=== PATIENT | male | born 1970 | race Caucasian/White ===

== ENCOUNTER 2017-12-05 14:21 | Emergency (ER) | payer SELFPAY ==
[2017-12-05 14:27] VITALS: BP 133/70; PULSE 108; RESP 22; TEMP 37.9; O2SAT 96
--- NOTE | 2017-12-05 14:30 | DI.REPORT_ITS ---
SYMPTOMS/DIAGNOSIS: SWELLING, PAIN, RIGHT TESTICLE SCROTAL ULTRASOUND: There is a large right hydrocele measuring nearly 7 cm. There is increased blood flow in the right testicle as well as right epididymis. There is no evidence of an abscess or torsion. No testicular mass is seen. The left testicle and epididymis show normal blood flow. A 4 mm cyst is seen in the head of the left epididymis. IMPRESSION: Right epididymal orchitis and hydrocele.
--- NOTE | 2017-12-05 14:47 | ED.GENADUL ---
Disposition Clinical Impression: Orchitis and epididymitis Disposition: HOME Instructions: Epididymo-Orchitis (ED) Additional Instructions: Please follow-up with urology. Call for an appointment. Return to the emergency department immediately for any worsening or new concerning symptoms. Prescriptions: Levofloxacin [Levaquin] 500 mg PO DAILY #9 tablet Referrals: Amado Antonio MD [ [facility] STAFF PHYSICIAN] - Medical Decision Making - Lab Data Laboratory Tests 12/05/17 14:25 Urine Color Yellow Urine Clarity Clear Urine pH 7.5 Ur Specific [place] 1.020 Urine Protein Negative Urine Ketones Negative Urine Blood Negative Urine Nitrite Negative Urine Bilirubin Negative Urine Urobilinogen 0.2 Ur Leukocyte Esterase Trace H Urine RBC Negative Urine WBC 10-20 Ur Epithelial Cells Negative Urine Crystals Negative Urine Bacteria Few Urine Casts Negative Urine Mucus Negative Ur Culture Indicated? Yes Urine Glucose Negative Results reviewed for labs ordered during visit: Yes - Medical Decision Making 14:45 --46-year-old male with MS, chronic constipation and urinary retention requiring self-catheterization, here with right testicular pain and swelling over the past 1 week. Stat ultrasound of the right testicle ordered. Plan to straight cath and check urinalysis. Patient refuses to allow nurse to catheterize and demands to self catheterize.. 16:00 --ultrasound interpreted by radiology: Epididymitis and orchitis right testicle, increased blood flow to the testicle, hydrocele with no abscess. Patient has been sexually active with only 1 partner, his , no anal sex, no history of STDs. Plan to treat with Levaquin. Patient is on methadone. Considered QT prolongation. ECG reviewed and interpreted by me: QTC 420, sinus tachycardia. Discussed risk and benefits of fluoroquinolone and patient agrees to treatment. I will have him follow-up with urology. Patient understands importance of timely follow-up. I encouraged him to return should have any worsening or new concerning symptoms. History of Present Illness - General Chief complaint: Abd Prob Stated complaint: UNKNOWN Time Seen by Provider: 12/05/17 14:29 Source: patient, RN notes reviewed Mode of arrival: wheelchair Limitations: no limitations - History of Present Illness Initial comments: 46-year-old male with history of multiple sclerosis, chronic constipation, urinary retention requiring self-catheterization, presents with chief complaint of testicular swelling. Patient notes severe, persistent and worsening testicular swelling over the past 1 week. No modifiers. He has associated pain. Swelling and pain is localized to his right testicle. He has never had similar in the past. Patient denies dysuria but does have urinary retention. He does have associated abdominal discomfort in his right lower abdomen. - Related Data LamoTRIgine [LaMICtal] 100 mg PO DAILY 10/09/12 Polyethylene Glycol 3350 [Miralax] 17 gm PO HS 10/09/12 CloNIDine [Catapres] 0.1 mg PO DAILY 10/13/12 Gabapentin [Neurontin] 800 mg PO TID 10/13/12 Methadone HCl 30 mg PO TID ml 10/04/13 Amitriptyline HCl 50 mg PO HS #30 tab-cap 11/29/13 Magnesium Citrate [Citrate Of Magnesia] 300 ml PO NOW #1 btl 12/17/13 Baclofen 5 mg PO BID #60 tab-cap 09/19/14 Sulfamethoxazole/Trimethoprim [Bactrim Ds Tablet] 1 tab-cap PO BID tab-cap 03/10/15 Meloxicam 7.5 mg PO BID tab-cap 05/04/15 Pv Stool Softener 100 mg PO BID 05/04/15 Pantoprazole Sodium [Protonix] 1 tab PO DAILY 09/04/15 Levofloxacin [Levaquin] 500 mg PO DAILY #9 tablet 12/05/17 Allergies Allergy/AdvReac Type Severity Reaction Status Date / Time morphine AdvReac Mild vomits Unverified 03/14/16 17:59 Review of Systems Constitutional: denies: fever Gastrointestinal: nausea, constipation. denies: abdominal pain Genitourinary: as per HPI, testicular pain. denies: discharge Comment: All other systems reviewed and negative Past Medical History - Past Medical History Multiple sclerosis, GERD, chronic pain - Social History Living Situation: lives with family General Exam - General Limitations: no limitations General appearance: alert, in no apparent distress - Eye Eye exam: Absent: scleral icterus, conjunctival injection - Respiratory Respiratory exam: Present: normal lung sounds bilaterally. Absent: respiratory distress, wheezes, rales, rhonchi - Cardiovascular Cardiovascular Exam: Present: normal rhythm, tachycardia, normal heart sounds - GI/Abdominal GI/Abdominal exam: Present: soft, tenderness (minimal rt suprapubic), diminished bowel sounds. Absent: guarding, rebound, rigid - exam: Present: testicular tenderness (rt), scrotal swelling (rt testicle swollen), circumcision, other (exam performed with nurse public stenographer present) - Neurological Exam Neurological exam: Present: alert. Absent: altered - Psychiatric Psychiatric exam: Present: normal affect - Skin Skin exam: Present: warm, dry, intact Course Vital Signs - 24 hr 12/05/17 14:27 Temperature 37.9 C H Pulse 108 H Respiratory 22 Rate Blood Pressure 133/70 Pulse Oximetry 96
[2017-12-05 14:53] LABS: Bilirubin Negative (Negative); Blood Negative (Negative); Clarity Clear; Glucose Negative (Negative); Ketones Negative (Negative); Leukocyte Esterase Trace (Negative); Nitrite Negative (Negative); Urobilinogen 0.2 EU/dL (Up TO 0.2); pH 7.5 (5-8)
[2017-12-05 15:05] LABS: Bacteria Few HPF (Negative); C & S Indicated? Yes; Casts Negative LPF (Negative); Crystals Negative HPF (Negative); Epithelial Cells Negative HPF (Negative); Mucus Negative (Negative); RBC Negative (0-2)
[2017-12-05] MEDS: Sodium Chloride-Nasal SPRAY-ADULT 44 ML BTL NS (15:31)
--- NOTE | 2017-12-08 07:58 | PDOC.ERCMPRO ---
Care Management Progress Note 12/05-Dr. Jessee Santos requested assistance with an urology f/u within one week for orchitis (infection of the testicle). Referral faxed to Urology this am.
== END 2017-12-05 16:20 | disposition home or self-care (01) ==
PROVIDERS: Emergency Provider Student in an Organized Health Care Education/Training Program; PCP Family Medicine
DX: N45.3 Epididymo-orchitis (principal); B96.89 Other specified bacterial agents as the cause of diseases classified elsewhere; G20 Parkinson's disease
CPT/HCPCS: 51701; 87077; 93005; 99284; 76870; 81003; 81015; 87086; 87186; 93010

== ENCOUNTER 2019-05-14 15:33 | Outpatient (REF) | payer OTHER, SELFPAY ==
[2019-05-14 20:04] LABS: HCT 42.8 % (40.0-50.0); Mean Corpuscular Hemoglobin 30.5 pg (27.0-33.0); Mean Corpuscular Volume 87.2 fL (80-95); Mean Platelet Volume 11.1 fL (8.0-11.0); Platelet Count 373 x1000/uL (130-400); RBC 4.91 m/cumm (4.50-6.00); RBC Distribution Width 12.6 % (11.8-14.1); White Blood Cell Count 6.27 k/cumm (4.4-10.8)
[2019-05-14 20:10] LABS: Iron 122 ug/dL (65-175); Total Iron Binding Capacity 317 ug/dL (250-450); Transferrin Sat 38 % (20-55)
[2019-05-14 20:11] LABS: ALT 17 U/L (16-63); AST 11 U/L (15-37); Albumin 4.1 g/dL (3.4-5.0); Alkaline Phosphatase 114 U/L (46-116); Anion Gap 6.5 mmol/L (3-11); BUN 16 mg/dL (7-18); CO2 33.5 mmol/L (21.0-32.0); CREATININE 0.97 mg/dL (0.70-1.30); Calcium 9.5 mg/dL (8.5-10.1); Calculated LDL 80 mg/dL; Chloride 102 mmol/L (98-107); Cholesterol 141 mg/dL (<200); Glucose 114 mg/dL (74-106); HDL Cholesterol 41 mg/dL (40-60); Potassium 4.2 mmol/L (3.5-5.1); Sodium 142 mmol/L (136-145); Triglyceride 101 mg/dL (<150)
[2019-05-14 20:23] LABS: Bilirubin, Total 1.2 mg/dL (0.2-1.0)
[2019-05-17 09:57] LABS: Hepatitis B Surface Ag Negative (Negative)
[2019-05-17 11:32] LABS: Hepatitis C Ab w Rflx HCV PCR Negative (Negative)
== END 2019-05-14 15:53 ==
LOC: NCHCN 15:33
PROVIDERS: PCP Family Medicine; Visit Provider Family Medicine
DX: R42 Dizziness and giddiness (principal); D50.9 Iron deficiency anemia, unspecified; G35 Multiple sclerosis; N39.0 Urinary tract infection, site not specified; Z11.59 Encounter for screening for other viral diseases; Z13.220 Encounter for screening for lipoid disorders
CPT/HCPCS: 80053; 80061; 85027; 86803; 87340; 83540; 83550

== ENCOUNTER 2019-06-10 12:22 | Outpatient (CLI) | payer OTHER, SELFPAY ==
--- NOTE | 2019-06-10 09:45 | DI.RAD_ITS ---
EXAM: XR KNEE LT 4V AP,LAT,PREET,PAT CLINICAL HISTORY: f/u L knee pain TECHNIQUE: 2D digital imaging was performed. COMPARISON: LEFT KNEE 3 VIEW COMPLETE from 09/19/2010 FINDINGS: There is now severe narrowing of the lateral femoral tibial joint, with a [id number] appearance. There is prominent periarticular spurring and sclerosis. There is severe valgus angulation and later al subluxation of the tibia with respect to the distal femur. Spurring is also seen from the medial femoral condyle, medial tibial plateau and inferior aspect of the patella. The patellofemoral joint shows mild narrowing. Bones appear osteoporotic. A bone island is seen in the upper tibia. No join t effusion is visible. IMPRESSION: Severe degenerative changes of the lateral femoral tibial joint.
== END 2019-06-10 12:42 ==
PROVIDERS: PCP Family Medicine; Visit Provider Student in an Organized Health Care Education/Training Program
DX: M25.562 Pain in left knee (principal); M17.12 Unilateral primary osteoarthritis, left knee
CPT/HCPCS: 73564

== ENCOUNTER 2019-06-11 09:05 | Day surgery (SDC) | payer OTHER, SELFPAY ==
[2019-06-11 09:22] VITALS: BP 101/63; PULSE 66; RESP 16; TEMP 37; O2SAT 92
[2019-06-11] MEDS: Lactated Ringers 1,000 ML 80 ML IV (09:54)
--- NOTE | 2019-06-11 11:13 | PDOC.DSDIS_ITS ---
Discharge Plan Disposition Patient Disposition: HOME Condition: Good Discharge Details Reason For Visit: EGD, colonoscopy Attending Provider: Liza Haider Primary Care Provider: Naeem Clemente Home Meds and New Rx's Prescriptions: Continued methadone 10 MG/5 ML solution 30 mg PO TID RF: 0 sennosides 8.6 mg tablet 8.6 mg PO BID RF: 0 baclofen 10 mg tablet 10 mg PO BID Qty: 60 RF: 12 clonidine HCl [Catapres] 0.1 mg tablet 0.1 mg PO BID RF: 0 cyproheptadine 4 mg tablet 8 mg PO QHS RF: 0 polyethylene glycol 3350 17 GM powder in packet 17 gm PO HS RF: 0 lamotrigine [Lamictal] 100 MG tablet 100 mg PO DAILY RF: 0 magnesium citrate [Citrate of Magnesia] 300 ML solution 300 ml PO NOW Qty: 1 RF: 0 pantoprazole [Protonix] 40 MG tablet,delayed release (DR/EC) 1 tab PO DAILY RF: 0 Discontinued peg 3350-electrolytes [Golytely] 236-22.74-6.74 -5.86 gram recon soln 240 ml PO Q10M Qty: 4000 RF: 0 Discharge Instructions Additional Instructions: Findings: Your upper endoscopy showed a benign narrowing in the esophagus (s tricture). This was dilated. Dilation may need to be repeated. Contact me if you are still having trouble swallowing in 1 month. Your colonoscopy was normal. Follow up: Plan for routine screening colonoscopy in 10 years or sooner as symptoms indicate. Please call if you develop: fevers >101.5 Nausea or Vomiting Abdominal pain or chest pain that is not transient DAY SURGERY UNIT POST COLONOSCOPY INSTRUCTIONS 1. Because there will be medication in your system for the next 24 hours, you may feel a little sleepy. Your coordination will be affected. Therefore: a. Do not drive or operate dangerous equipment for 24 hours. b. Do not drink alcohol beverages for 24 hours (not even beer). c. Plan to go home and rest for the day. 2. Generally there are no restrictions on your activity after a day or so has gone by, but you may feel a bit fatigued for a few days. 3 After you arrive home you may have a light meal and return to a normal diet as you can tolerate it without feeling sick to your stomach. 4. After surgery, you may feel pain or discomfort. This should be only transient, but if it persists please contact your doctor. 5. If there are any questions regarding the findings of your procedure, please feel free to contact your doctor. 6. If you are unable to contact your doctor with a problem, contact the hospital at [phone]. 7. Continue all your regular medications unless directed otherwise. I understand the above instructions and have no questions. Signature of Patient or Responsible Adult Escort Date/Time Name of Responsible Adult Escort Signature of Nurse Date/Time Activity:: Activity as Tolerated Diet:: As Tolerated Discharge Orders Discharge Orders: Discharge Order (Routine); Ordered 06/11/19 Ordered By: Liza Haider DS: Diagnosis Discharge Diagnosis (1) Benign esophageal stricture: Status: Acute (2) Normal colonoscopy: Status: Acute
[2019-06-11 13:24] VITALS: BP 119/70; PULSE 60; RESP 16; TEMP 36.3; O2SAT 100
--- NOTE | 2019-06-14 06:10 | ENDO_ITS ---
REPORT OF OPERATIVE PROCEDURE DATE OF PROCEDURE June 11, 2019 PREOPERATIVE DIAGNOSES 1. Dysphagia. 2. Need for colon screening. POSTOPERATIVE DIAGNOSES 1. Benign distal esophageal stricture. 2. Normal colon. PROCEDURES 1. Esophagoscopy with balloon dilation. 2. Colonoscopy. SURGEON Liza Haider M.D. ANESTHESIA Monitored Anesthesia Care. INDICATION This is a 48-year-old man with MS, who presents for his first screening colonoscopy. He does have di fficulty having a bowel movement and he takes regular laxatives. His prep went well he reports. He al so notes difficulty swallowing liquids, solids and his pills. This has been going on for a long time. He does have heartburn that is treated with a PPI. PROCEDURE DESCRIPTION The patient was placed in the left lateral decubitus position. Propofol was titrated to sedation. The scope was advanced into the esophagus under direct visualization. Just proximal to the GE junction there was a benign-appearing stricture that I was unable to pass through with the endoscope. There wa s no obvious evidence of Lobato's esophagus. There was no esophagitis. The 10-11-12 balloon was inse rted across the stricture and gently inflated. Two ATMs represented 10 mm in size. I first inflated t he balloon to 1 MARCOS and left it there for a minute. When the balloon was deflated, the appropriate am ount of dilation had been done, so I did not inflate the balloon any larger. I was still unable to pa ss the endoscope. The scope was therefore withdrawn with no proximal esophageal lesions noted. Digital rectal examination revealed no abnormalities. The scope was advanced to the cecum without di fficulty. He was noted to have a somewhat tortuous and patulous colon. His prep was adequate. The sco pe was slowly withdrawn with no abnormalities seen within the ascending, transverse, descending sigmo id colon or rectum, including on retroflexed view. He tolerated the procedure well and was stable to Recovery. He will need a followup screening colonoscopy again in 10 years. Since the diameter of his esophagus is so small, it is likely he will need further dilation. The patient was advised to contact me if his dysphagia does not resolve with this procedure.
== END 2019-06-11 13:45 | disposition home or self-care (01) ==
PROVIDERS: PCP Family Medicine; Visit Provider Surgery
PROC: (CPT 43249; principal; 2019-06-11 10:30)
DX: Z12.11 Encounter for screening for malignant neoplasm of colon (principal); K59.00 Constipation, unspecified; K63.89 Other specified diseases of intestine; R13.10 Dysphagia, unspecified; G35 Multiple sclerosis; K21.9 Gastro-esophageal reflux disease without esophagitis; F10.10 Alcohol abuse, uncomplicated; K22.2 Esophageal obstruction
CPT/HCPCS: 43249; 45378; J2001; J2250; J3010

== ENCOUNTER 2019-06-25 08:35 | Day surgery (SDC) | payer OTHER, SELFPAY ==
[2019-06-25 08:39] VITALS: BP 118/79; PULSE 78; RESP 16; TEMP 36.4; O2SAT 98
[2019-06-25] MEDS: Lactated Ringers 1,000 ML 80 ML IV (09:09)
--- NOTE | 2019-06-25 09:54 | PDOC.DSDIS_ITS ---
Discharge Plan Disposition Patient Disposition: HOME Condition: Good Discharge Details Reason For Visit: DYPHAGIA Attending Provider: Liza Haider Primary Care Provider: Naeem Clemente Home Meds and New Rx's Prescriptions: Continued methadone 10 MG/5 ML solution 30 mg PO TID RF: 0 baclofen 10 mg tablet 10 mg PO BID Qty: 60 RF: 12 clonidine HCl [Catapres] 0.1 mg tablet 0.1 mg PO BID RF: 0 cyproheptadine 4 mg tablet 8 mg PO QHS RF: 0 lamotrigine [Lamictal] 100 MG tablet 100 mg PO DAILY RF: 0 magnesium citrate [Citrate of Magnesia] 300 ML solution 300 ml PO NOW Qty: 1 RF: 0 pantoprazole [Protonix] 40 MG tablet,delayed release (DR/EC) 1 tab PO DAILY RF: 0 Discharge Instructions Additional Instructions: Findings: The stricture was dilated today and biopsies performed. Follow up: Plan for dilation again in 2 weeks unless your symptoms have resolved. Please call if you develop: fevers >101.5 Nausea or Vomiting Chest or Abdominal pain that is not transient DAY SURGERY UNIT POST EGD INSTRUCTIONS 1. Because there will be medication in your system for the next 24 hours, you may feel a little sleepy. Your coordination will be affected. Therefore: a. Do not drive or operate dangerous equipment for 24 hours. b. Do not drink alcohol beverages for 24 hours (not even beer). c. Plan to go home and rest for the day. 2. Generally there are no restrictions on your activity after a day or so has gone by, but you may feel a bit fatigued for a few days. 3 After you arrive home you may have a light meal and return to a normal diet as you can tolerate it without feeling sick to your stomach. 4. After surgery, you may feel pain or discomfort. This should be only louis sient, but if it persists please contact your doctor. 5. If there are any questions regarding the findings of your procedure, please feel free to contact your doctor. 6. If you are unable to contact your doctor with a problem, contact the hospital at [phone]. 7. Continue all your regular medications unless directed otherwise. I understand the above instructions and have no questions. Signature of Patient or Responsible Adult Escort Date/Time Name of Responsible Adult Escort Signature of Nurse Date/Time Activity:: Activity as Tolerated Diet:: As Tolerated Discharge Orders Discharge Orders: Discharge Order (Routine); Ordered 06/25/19 Ordered By: Liza Haider DS: Diagnosis Discharge Diagnosis (1) Benign esophageal stricture: Status: Acute
--- NOTE | 2019-06-25 10:28 | ESO_PTH ---
PATIENT: Anil Park LOC: [facility] U#:[id number] AGE/SX: 48/M ROOM: RE06/25/[address]: Liza Haider MD : [id number] BED: DIS: 06/25/2019 SPEC #: [id number] RECD: 06/25/19 13:02 STATUS: MAX RERadha #: [id number] MARIANA: 06/25/19 10:[address]: Liza Haider DEPT: Surgical Specimen RECD BY: Nancy Gould ENTERED: 06/25/19 13:02 SP TYPE: Eso OTHR DR: Naeem Clemente Tissues: 1 - ESOPHAGUS BIOPSY Procedures: GROSS AND MICRO LEVEL 4 Comments: [id number]
--- NOTE | 2019-06-25 10:46 | ENDO_ITS ---
DATE: JUNE 25, 2019 Preoperative Diagnosis: Distal esophageal stricture Postoperative Diagnosis: Same Operation: Esophagoscopy with balloon dilation and distal esophageal biopsy. Anesthesia: General Surgeon: Liza Haider M.D. Indications: This is a 48 year-old man who underwent balloon dilation of a distal esophageal stricture two weeks ago. This had a benign appearance. The scope could not be passed through the stricture. I used the 10-11-12 mm. balloon but only inflated it to 1 MARCOS which is less than 10 mm. in size. He noted improvement of his symptoms but certainly still has regular dysphagia. He presents for repeat dilation. Procedure: He was placed in the left lateral decubitus position. Propofol was titrated to sedation. The scope was advanced into his esophagus under direct visualization. The distal stricture was again demonstrated. I was unable to pass the scope through it. There was not any significant acute inflammation. The 10-11-12 mm. balloon was inserted and again inflated to 1 MARCOS. When the balloon was deflated, there was evidence of some trauma to the stricture which was at the desired level. I did not inflate the balloon any larger because of this. The balloon was removed and the site inspected. I was still unable to pass the scope through here. I was however able to visualize the distal esophagus somewhat better and it appeared that there was potentially Lobato's present. The stricture is therefore potentially not located at the GE junction but a few cm. proximal. The area of possible Lobato's change was biopsied as was the stricture itself. The air was suctioned free and the scope withdrawn with no other esophageal lesions found. He tolerated the procedure well and was stable to recovery. It is likely that he will need a dilation again in a few weeks.
[2019-06-25 11:26] VITALS: BP 121/77; PULSE 67; RESP 18; TEMP 36.9; O2SAT 100
== END 2019-06-25 11:45 | disposition home or self-care (01) ==
PROVIDERS: PCP Family Medicine; Visit Provider Surgery
PROC: 0DJ68ZZ Inspection of Stomach, Via Natural or Artificial Opening Endoscopic (ICD-10-PCS; CPT 43235; principal; 2019-06-25 09:45)
DX: K22.2 Esophageal obstruction (principal); K21.0 Gastro-esophageal reflux disease with esophagitis; F10.10 Alcohol abuse, uncomplicated
CPT/HCPCS: 43249; 43239; 88305

== ENCOUNTER 2019-08-20 15:55 | Outpatient (REF) | payer OTHER, SELFPAY ==
[2019-08-20 17:12] LABS: Bilirubin Negative (Negative); Blood Negative (Negative); Clarity Clear (Clear); Glucose Negative (Negative); Ketones Negative (Negative); Leukocyte Esterase Trace (Negative); Nitrite Negative (Negative); Specific Gravity >= 1.030 (1.005-1.025); Urobilinogen 0.2 EU/dL (Up TO 0.2); pH 6.5 (5-8)
[2019-08-20 18:01] LABS: Bacteria Negative HPF (Negative); C & S Indicated? Yes; Casts Negative LPF (Negative); Crystals Negative HPF (Negative); Epithelial Cells Few HPF (Negative); Mucus Negative (Negative); Other Cells Negative (Negative); RBC Negative HPF (0-2); WBC 20-50 HPF (0-5)
== END 2019-08-20 16:15 ==
LOC: NCHCN 15:55
PROVIDERS: PCP Family Medicine; Visit Provider Psychiatry & Neurology Neurology
DX: N31.9 Neuromuscular dysfunction of bladder, unspecified (principal)
CPT/HCPCS: 81003; 81015; 87086

== ENCOUNTER 2019-09-03 08:50 | Outpatient (CLI) | payer OTHER, SELFPAY ==
--- NOTE | 2019-09-03 08:00 | DI.RAD_ITS ---
EXAM: XR STANDING ALIGNMENT CLINICAL HISTORY: preop planning;please do with mag marker btw knees TECHNIQUE: COMPARISON: CR LEFT ANKLE COMPLETE from 09/19/2010 CR XR KNEE LT 1V from 09/03/2019 FINDINGS: Standing alignment views of the lower extremities were obtained along with single lateral view of the left knee. There are severe degenerative changes of the left knee predominantly involving the later al tibiofemoral joint with severe valgus angulation of the left knee. Old deformity of distal left tibia is noted, no change from September 2010 films. IMPRESSION:
[2019-09-04 14:23] LABS: COVID-19 RT-PCR Result NEGATIVE (Negative)
== END 2019-09-03 09:10 ==
LOC: DIORS 08:51 → LBO 09-23 12:06
PROVIDERS: Student in an Organized Health Care Education/Training Program; PCP Family Medicine; Referring Provider Family Medicine; Visit Provider Physician Assistant
DX: M25.562 Pain in left knee (principal); M17.32 Unilateral post-traumatic osteoarthritis, left knee; Z11.59 Encounter for screening for other viral diseases; Z01.818 Encounter for other preprocedural examination; M21.062 Valgus deformity, not elsewhere classified, left knee
CPT/HCPCS: U0003; 73560; 77073

== ENCOUNTER 2019-09-03 10:00 | Outpatient (CLI) | payer OTHER, SELFPAY | END 2019-09-03 10:20 | PROVIDERS: PCP Family Medicine; Visit Provider Student in an Organized Health Care Education/Training Program | DX: R69 Illness, unspecified (principal) ==

== ENCOUNTER 2019-09-03 10:37 | Outpatient (CLI) | payer OTHER, SELFPAY ==
[2019-09-03 11:58] LABS: HCT 41.6 % (40.0-50.0); HGB 14.9 g/dL (13.5-17.5); Mean Corp. HGB Concentration 35.8 g/dL (32.0-36.0); Mean Corpuscular Hemoglobin 30.5 pg (27.0-33.0); Mean Corpuscular Volume 85.2 fL (80-95); Platelet Count 374 x1000/uL (130-400); RBC 4.88 m/cumm (4.50-6.00); RBC Distribution Width 12.3 % (11.8-14.1); White Blood Cell Count 7.78 k/cumm (4.4-10.8)
[2019-09-03 13:13] LABS: Anion Gap 6.3 mmol/L (3-11); BUN 14 mg/dL (7-18); CO2 33.7 mmol/L (21.0-32.0); CREATININE 0.97 mg/dL (0.70-1.30); Calcium 9.8 mg/dL (8.5-10.1); Chloride 102 mmol/L (98-107); Glucose 75 mg/dL (74-106); Potassium 4.4 mmol/L (3.5-5.1); Sodium 142 mmol/L (136-145)
== END 2019-09-03 10:57 ==
PROVIDERS: PCP Family Medicine; Visit Provider Student in an Organized Health Care Education/Training Program
DX: M25.562 Pain in left knee (principal); M17.32 Unilateral post-traumatic osteoarthritis, left knee; Z01.812 Encounter for preprocedural laboratory examination
CPT/HCPCS: 36415; 80048; 85027

== ENCOUNTER 2019-09-07 06:00 | Observation (INO) | payer OTHER, SELFPAY ==
[2019-09-07] VITALS (10 sets, daily range): BP systolic 120–150; BP diastolic 72–87; PULSE 73–88; RESP 16–21; TEMP 36.4–36.9; O2SAT 97–100
[2019-09-07] MEDS: Lactated Ringers 1,000 ML 80 ML IV (06:41)
[2019-09-07] MEDS: Acetaminophen 500 MG TAB 1000 MG PO ×2 (06:41→13:31)
[2019-09-07] MEDS: Gabapentin 300 MG CAP PO (06:42)
[2019-09-07] MEDS: Celecoxib 200 MG CAP 400 MG PO (06:42)
--- NOTE | 2019-09-07 07:12 | W.PM.DS.N ---
Date of service: 09/07/19 Time of Service: 13:08 DS: Diagnosis Discharge Diagnosis (1) Valgus deformity, not elsewhere classified, left knee: Status: Chronic (2) Left knee DJD: Status: Chronic Discharge Plan Disposition Patient Disposition: HOME Condition: Improving Discharge Details Reason For Visit: (L) KNEE POST TRAUMATIC OA Admit Date/Time: 09/07/19 06:00 Admit Provider: Jordan Sosa Attending Provider: Jordan Sosa [facility] Course: Patient was admitted to the medical/surgical floor following the procedure. It was tolerated well without any notable medical, surgical, or anesthetic complications. Mobilization began postoperatively. The tang catheter was removed and voiding spontaneously. Vitals were stable. Physical therapy worked with the patient and was cleared for discharge home. No acute medical issues. Home Meds and New Rx's Prescriptions: New aspirin 81 mg tablet,delayed release (DR/EC) 81 mg PO BID Qty: 60 RF: 0 acetaminophen 500 mg tablet 1,000 mg PO Q8H PRN (Reason: pain) Qty: 90 RF: 3 ibuprofen 600 mg tablet 600 mg PO TID PRNQty: 90 RF: 3 oxycodone 10 mg tablet 10 mg PO Q4H PRNQty: 18 RF: 0 Continued methadone 10 MG/5 ML solution 30 mg PO TID RF: 0 baclofen 10 mg tablet 10 mg PO BID Qty: 60 RF: 12 clonidine HCl [Catapres] 0.1 mg tablet 0.1 mg PO BID RF: 0 cyproheptadine 4 mg tablet 8 mg PO QHS RF: 0 lamotrigine [Lamictal] 100 MG tablet 100 mg PO DAILY RF: 0 magnesium citrate [Citrate of Magnesia] 300 ML solution 300 ml PO NOW Qty: 1 RF: 0 pantoprazole [Protonix] 40 MG tablet,delayed release (DR/EC) 1 tab PO DAILY RF: 0 Discharge Instructions Additional Instructions: Dr. Sosa?s Total Knee Discharge Instructions Activity: The most important activity is to walk. You should try to take short walks a few times a day. It is important that when resting you work on keeping the knee straight. Avoid putting a pillow behind the knee as this will encourage flexion. Work on range of motion exercises as provided by Physical Therapy and the preoperative booklet. - Start outpatient physical therapy within 2 weeks. - You should wear the STANLEY hose on both legs for 2 weeks. Dressing: Keep the surgical dressing (Mepilex) in place for at least one week. If you went home on the surgical day, you should remove the JOSAFAT wrap on the second day and then apply the STANLEY hose. The dressing may get wet after 3 days but avoid soaking the dressing. If it gets wet, just lightly pat dry. Most patient prefer to cover with ClingWrap or Saran Wrap to keep the dressing dry. After the first week, the dressing may be removed and replaced with light gauze and tape or nothing. Medications: - You should take Tylenol and anti-inflammatory Ibuprofen as your primary pain control medications - You have been prescribed a stronger pain medication Oxycodone for breakthrough pain, take as needed as prescribed. Continue your baseline Methadone. - You will continue your stomach acid reduction agent, Pantoprozole, to help reduce stomach acid and reflux. - You will be taking Aspirin 81mg twice a day for DVT prevention unless instructed otherwise. - If you have constipation you should take Colace or Miralax (both [id number]). It takes most people 3-4 days to have a bowel movement. Follow-up: 2 weeks. You should also call physical therapy to work on scheduling outpatient therapy sessions which can begin at 2 weeks. If you have any acute concerns or questions, please do not hesitate to contact the office at [phone]. You may contact Dr. Sosa with any questions after hours through the hospital at [phone] or on his cell phone at [phone]. Referrals: [facility] [Provider Group] - 09/21/19 (s/p L TKA) Jordan Sosa MD [ [facility] STAFF PHYSICIAN] - Activity:: Activity as Tolerated Equipment/Supplies:: Walker Diet:: As Tolerated Discharge Orders Discharge Orders: Discharge Order (Routine); Ordered 09/07/19 Ordered By: Jordan Sosa DS: Summary Status at Discharge Functional status at discharge: uses cane/walker Overall status at discharge: patient is not back to baseline Mental Status: mental status grossly normal Speech and Movement: speech and movement normal Mood: congruent mood Affect: normal affect Exam Narrative Exam Narrative: Sitting up in the chair. Dressing is clean dry and intact. Straight leg raise intact. Active ankle dorsiflexion plantarflexion. Psych Mental Status: mental status grossly normal Speech and Movement: speech and movement normal Mood: congruent mood Affect: normal affect DS: Data Vitals/I&O Vitals and I&O: Vital Signs Temperature 36.5 C 09/07/19 06:20 Pulse 79 09/07/19 06:20 Pulse Rhythm Regular 09/07/19 06:20 Respiratory Rate 18 09/07/19 06:20 Respiratory Effort 09/07/19 06:20 Respiratory Depth Normal 09/07/19 06:20 Respiratory Pattern Normal 09/07/19 06:20 Blood Pressure 120/72 09/07/19 06:20 Pulse Oximetry 100 09/07/19 06:20 Oxygen Delivery Method Room Air 09/07/19 06:20 Oxygen Flow Rate 0 09/07/19 06:20 Pain Level 10 09/07/19 06:20 Intake & Output 09/06/19 09/06/19 09/07/19 11:59 23:59 11:59 Weight 75.3 kg [facility] Medical History Alcohol abuse remote Anemia (Chronic) Anxiety Benign esophageal stricture (Acute) Constipation (Acute) Depression Drug abuse remote - cocaine as a teen Dysphagia (Acute) Gait abnormality (Acute) Gastroesophageal reflux disease Hx of esophagitis (Acute) Left knee DJD (Chronic) Memory loss (Acute) Multiple sclerosis, primary progressive (Acute) Neurogenic bladder (Acute) Obesity (Chronic) Other chronic pain Left foot PTSD (post-traumatic stress disorder) (Acute) Recurrent UTI (Acute) Spasticity (Acute) TBI (traumatic brain injury) (Acute) Umbilical hernia (Acute) Valgus deformity, not elsewhere classified, left knee (Chronic) Surgical History History of colonoscopy (Chronic) History of ear surgery (Acute) Ruptured eardrum ~11 years old History of esophagogastroduodenoscopy (EGD) (Chronic) S/P left knee arthroscopy (Acute) At 14 yo Family History Mother No problems noted. Father No problems noted. Social History Smoking/Tobacco Use Status: Never Alcohol Intake: former Drug use: Daily Substance use type: former substance user and marijuana Household members: spouse current occupation: Disabled Current gender identity: male Do you feel safe at home: Yes Do you feel safe in your relationship?: Yes
[2019-09-07] MEDS: ceFAZolin 2 GM/50 ML BAG IVPB (07:37)
[2019-09-07] MEDS: Ketorolac 30 MG/ML VIAL (08:09)
[2019-09-07] MEDS: Bupivacaine 0.25% Pres-Free 30 ML VIAL (08:09)
[2019-09-07] MEDS: Normal Saline 20 ML VIAL (08:09)
[2019-09-07] MEDS: HYDROmorphone 2 MG/ML VIAL IVP ×2 (10:22→10:34)
[2019-09-07] MEDS: Normal Saline Flush 10 ML SYR IV ×2 (10:22→13:38)
[2019-09-07] MEDS: Methadone 10 MG TAB 30 MG PO (12:05)
--- NOTE | 2019-09-07 12:09 | IN_ITS ---
Date of service: 09/07/19 Time of Service: 12:09 PT Notes Visit Reasons: (L) KNEE POST TRAUMATIC OA Physical Therapy Inpatient Initial Evaluation Date: 09/07/2019 Referring Doctor: Jordan Sosa MD PT Orders: PT CONSULT: Status post L TKA Precautions: Fall. Standard. WBAT on left LE. Patient Profile/Admitting Diagnosis: Anil is a 48-year-old male with multiple sclerosis and chronic pain syndrome who is status post left total knee arthroplasty due to posttraumatic arthritis of left knee. PMHX: Medical History (Updated 09/03/19 @ 09:07 by Jennifer Dumas) Alcohol abuse remote Anemia (Chronic) Anxiety Benign esophageal stricture (Acute) Constipation (Acute) Depression Drug abuse remote - cocaine as a teen Dysphagia (Acute) Gait abnormality (Acute) Gastroesophageal reflux disease Hx of esophagitis (Acute) Left knee DJD (Chronic) Memory loss (Acute) Multiple sclerosis, primary progressive (Acute) Neurogenic bladder (Acute) Obesity (Chronic) Other chronic pain Left foot PTSD (post-traumatic stress disorder) (Acute) Recurrent UTI (Acute) Spasticity (Acute) TBI (traumatic brain injury) (Acute) Umbilical hernia (Acute) Valgus deformity, not elsewhere classified, left knee (Chronic) Surgical History (Updated 09/03/19 @ 09:07 by Jennifer Dumas) History of colonoscopy (Chronic) History of ear surgery (Acute) Ruptured eardrum ~11 years old History of esophagogastroduodenoscopy (EGD) (Chronic) S/P left knee arthroscopy (Acute) At 14 yo Social History/Home Situation: Patient lives with in a private home with a ramp to enter. He states that, with the help of his , he has been dealing with his multiple sclerosis since diagnosis in 2004. Anil is modified independent with a single point cane indoors and outdoors. Equipment Owned/DME: Wheelchair, front wheeled walker, single-point cane Subjective: Patient reports significant pain on the left knee about 9/10 but this did not prevent him from sitting up in bed and walking in the hallway with a front wheeled walker for the session. He denies any dizziness, chest pain, nor headache throughout. He hopes to go home today if at all possible. Objective: General Observation: JOSAFAT wraps to L knee. TEDS on R leg. Mental Status: Alert and oriented as to person, place,, time Pain: 8?9/10 on left knee ROM: Right Upper Extremity: Shoulder Flexion WFL. Shoulder abduction WFL. Elbow flexion WFL. Wrist flexion WFL. Opening and closing of hand WFL. Left Upper Extremity: Shoulder Flexion WFL. Shoulder abduction WFL. Elbow flexion WFL. Wrist flexion WFL. Opening and closing of hand WFL. Right Lower Extremity: Hip flexion WFL. Hip abduction WFL. Knee flexion WFL. Ankle dorsiflexion WFL. Ankle plantarflexion WFL. Left Lower Extremity: Hip flexion WFL. Hip abduction WFL. Knee flexion 0-90 degress actively. Knee extension -40 degrees. Ankle dorsiflexion WFL. Ankle plantarflexion WFL. Strength: Right Upper Extremity: Shoulder flexors 4/5. Shoulder abductors 4/5. Elbow flexors 4/5. Elbow extensors 4/5. Sponsorship Coordinator strong. Left Upper Extremity: Shoulder flexors 4/5. Shoulder abductors 4/5. Elbow flexors 4/5. Elbow extensors 4/5. Sponsorship Coordinator strong. Right Lower Extremity: Hip flexors 5/5. Hip abductors 5/5. Knee flexors 5/5. Kn ee extensors 5/5. Ankle dorsiflexors 5/5. Ankle plantarflexors 5/5. Left Lower Extremity:Hip flexors 4-/5. Hip abductors 4-/5. Knee flexors 3-/5. Knee extensors 3-/5. Ankle dorsiflexors 4/5. Ankle plantarflexors 4/5. Sensation: Intact as to pain and pressure on bilateral lower extremities. Bed Mobility/Transfers: Supine to sit minimal assist to left LE to slide towards the edge of the bed, HOB about 45 degrees up Sit to stand minimal assist with moderate for cueing for hand placement for safety, requires use of front wheeled walker Stand to sit contact-guard assist with moderate for cueing for hand placement for safety, requires use of front wheeled walker Bed to chair contact-guard assist with moderate for cueing for hand placement for safety, requires use of front wheeled walker Chair to bed contact-guard assist with moderate for cueing for hand placement for safety, requires use of front wheeled walker Gait: Patient tolerated level surface ambulation of 100 feet using front wheeled walker with WBAT on left LE requiring contact-guard assist of PT and wheelchair follow of nurse Krystle. Step to gait pattern. Decreased makenna. Reported 9/10 on the left knee. Balance: Static Sitting: Normal Dynamic Sitting: Good Static Standing: Fair Dynamic Standing: Fair Special Tests: Mobility Limitations Standardized Measure [facility] AM-PAC 6 clicks Basic Mobility Inpatient Short Form: Raw Score: 18 CMS Score: 47% deficit Informed Consent/Education: Patient instructed in purpose of PT consult and plan of care. Assessment: Patient demonstrates need for assistive device for all mobility ADL performance, unsteadiness of gait, difficulty with walking, and limitation of active range of motion on the left knee. Anil is a 48-year-old male with multiple sclerosis and chronic pain syndrome who is status post left total knee arthroplasty due to posttraumatic arthritis of left knee. Patient presents with clinical signs and symptoms consistent with current/admitting diagnoses that have resulted to mobility limitations, gait instability, generalized weakness, and impairment of motor control as demonstrated by the following impairment level findings: 1. Decreased strength to L knee major muscle groups 2. Impaired standing balance 3. Impaired activity tolerance 4. Limitation of joint range of motion in left knee Impairments are contributing to the following functional limitations: 1. Dependent bed mobility skills 2. Increased dependence with transfers 3. Inability to safely ambulate without assistive device and physical a ssistance 4. Increase completion time for mobility ADL performance 5. Increased fall risk 6. Inability to negotiate steps alone safely Patient is assessed as a [id number] moderate complexity based on the following: History: Anil is a 48-year-old male with impairment level findings, functional limitations, and past medical history as listed above Examination: Demonstrable impairment in strength, balance, and range of motion with underlying impairments and functional limitations as documented above Presentation: Evolving Decision Makin moderate complexity Goals: N/A. Patient to go home later this afternoon per orthopedic surgeon's order. Plan of Care/Treatment Plan: N/A. Patient to go home later this afternoon per orthopedic surgeon's order. PT Intervention: Session for today consisted of initial physical therapy evaluation as well as education and training on mobility ADL performance using front wheel walker. DISCHARGE RECOMMENDATIONS: Home with when medically cleared. Outpatient physical therapy services in 2 weeks per orthopedic surgeon's advice. No equipment needs at this time. TREATMENT CODE/TIME: [id number] x 30 minutes beginning at 12:09 PM. Thank you very much for this referral. Cathleen Asencio PT, DPT, CLT [facility] [place], [place]
--- NOTE | 2019-09-07 12:17 | ROE_ITS ---
Date of service: 09/07/19 Time of Service: 09:52 Operative Note Operative Note DATE OF PROCEDURE: 09/07/19 PRE-OP DIAGNOSIS: Left Knee Arthritis with Valgus Deformity POST-OP DIAGNOSIS: same PROCEDURE: Left Total Knee Arthroplasty with Intraoperative Navigation SURGEON: Jordan Sosa HEADLINER INSTALLER: Benny Edwards ANESTHESIA: regional and spinal ESTIMATED BLOOD LOSS: 300 PATHOLOGY: none sent TOURNIQUET TIME: 33 COMPLICATIONS: None Patient was transported to: PACU Patient's condition: stable Implants: 1. Depuy Attune Posterior Stabilized Femoral Component, Size 6 2. Depuy Attune Fixed Platform Tibial Component, Size 6 3. Depuy Attune 6 x 12 mm fixed, Stabilized Poly 4. Depuy Attune Patellar Component, Size 38 mm Indications: I have seen plan in clinic for symptoms of knee arthritis, confirmed with radiographic findings. He has exhausted nonoperative methods and was having significant limitations in daily function and desired better function and less pain. I discussed the technical details of a knee replacement. I explained the risks of the procedure to include, but not limited to, bleeding, infection, pain, stiffness, fracture, damage to nerves and vessels, damage to muscles and tendons, loosening, need for repeat procedure, blood clot and cardiopulmonary demise. Despite these risks, Anil elected to proceed. Findings: There was significant signs of arthritis throughout the knee. There is notable deformity of the lateral compartment with extensive osteophytes formed laterally and posteriorly. The lateral soft tissues were contracted and the medial collateral ligament complex was still intact. Procedure Description: Anil was greeted in the preoperative holding area where the correct side was identified and marked. The consent was reviewed with the p atient and signed. The history and physical was updated. All questions were answered. Preoperative mediacations were administered: Acetaminophen 1000mg, Celebrex 400mg, Gabapentin 300mg. An adductor canal block was then administered by the anesthesia team in the PACU. Plan was taken back to the operating room. A spinal anesthestic was then administered. The patient was placed into the supine position on the operating room table. However, the spinal did not seem to set up appropriately and therefore he was converted to a general anesthetic. A nonsterile tourniquet was placed high onto the leg but only used for cementing. Posts were placed for positioning during the procedure. All bony prominences were well padded. Prophylactic antibiotics in the form of cefazolin were administered. 1g of Tranxemic Acid was given intravenously within 30 minutes of incision. The left leg was then prepped with Chloraprep and draped in a standard fashion with impervious stockinette and extremity drape with Iodine impregnated skin protection. A timeout to confirm correct identity, side and site, procedure, allergies, anesthesia, and medical concerns was performed. With the knee in some flexion, a midline incision was made overlying the knee. Full thickness skin flaps were raised once the extensor mechanism was encountered. These were raised medially and laterally. Any bleeding was controlled with electrocautery. Once the extensor mechanism was fully exposed, a medial parapatellar arthrotomy was performed in a flexed position. All bleeding from the arthrotomy and the geniculate arteries was coagulated. A medial subperiosteal peel was performed with electrocautery to the midcoronal plane. The fat pad was removed while keeping the patellar tendon protected. The anterior distal femur synovium was removed for later visualization. Large osteophytes from the notch were removed to visualize the ACL and PCL. The ACL and PCL were resected and the anterior horn of the lateral meniscus was transected. There is no tibial origin of the ACL apparent. The knee was then flexed with the patella everted. Large osteophytes from the tibia were removed. Large osteophytes from the femur were removed. There was some hypoplasia of the lateral femoral condyle and any remnant cartilage of the medial femoral condyle was removed for appropriate thickness. A single starting pin was then placed 1cm anterior to the PCL insertion and the notch in the direction of the femoral head. The OrthoAlign device was applied over the pin. It was oriented to be in line with the epicondylar axis and the trochlear groove. It was then pinned into place. The navigation computer was then turned on and calibrated. The distal femur cut was set at 0 degrees varus/valgus and 3 degrees flexion. The distal femur cutting guide then was positioned for a 9mm cut. The distal femur was cut with an oscillating saw while protecting the soft tissues. The tibia was then addressed. The OrthoAlign device was placed over the tibial tubercle and medial tibia and secured into position. Once again, OrthoAlign was calibrated and then set for a 0 degree varus/valgus cut and 3.5 degrees of po sterior slope. With this locked into position, the cut thickness stylus was used to assess cut thickness. The lateral?posterior side, most involved side, was set for a 1mm cut. This corresponded to a 13 mm cut anteriorly. There was significant slope from anterior to posterior this was then held in position and pinned into place with 2 additional pins and a cross pin for stability. The medial and lateral collateral ligaments were protected and the cut was performed. With this completed, it was assessed and noted to be of appropriate dimensions. The guide and OrthoAlign was removed. A spacer block was inserted and the knee was brought into extension. The 10 mm spacer block provided full extension, without hyperextension and with stability of both the medial and lateral collateral ligaments was assessed. The leg still seem to have a slight amount of residual valgus deformity but was stable and therefore was not adjusted. The pins from the femur and the tibia were then removed. The distal femur was then sized. The anterior stylus was placed onto the lateral ridge of the anterior femur. This indicated a size 6 femur. The external rotation of the guide was adjusted to 5 degrees to match the epicondylar axis, perpendicular to Caroline?s line. The 4-in-1 cutting guide was the placed. The posterior medial femur cut was evaluated and appeared of good thickness. The spacer block was inserted underneath the cutting guide and stability was confirmed in 90 degrees of flexion. An ramona wing was used to confirm appropriate position of the anterior cut to avoid notching. This cutting guide was ensured to be flush on the cut surface and then pinned into place with headed pins. While protecting the soft tissues, quad tendon, and collateral ligaments, the anterior and posterior cuts were performed with a saw. The central two pins were removed and the posterior and anterior chamfers were cut next. The notch-cutting guide was placed. This was pinned to lateralize the femoral component as much as possible while keeping it flush on the cut surface. This was then pinned into position. A reciprocating saw was used to make the notch cut. A rasp smoothed the cut surfaces. A trial posterior stabilized femoral component was then inserted, impacted down to the cut surfaces, and the lug holes were drilled. A provisional trial tibial component was placed and the knee was brought through range of motion. The polyethylene was trialed until there was good flexion and extension with excellent stability to the medial and lateral collaterals. The patella was tracking without thumbs. The tibial cut surface was fully exposed. The medial and lateral menisci were removed. The tibia was then sized as a 6. The tibia had been previously marked during trialing to correspond to the center of the tibial component to help with rotation. The trial was aligned to this benny, approximately rotated to the medial 1/3rd of the tibial tubercle. The trial was pinned into place. The tibia was prepared with a reamer and a keel punch. The knee was then brought into extension and the patella was measured as 25 mm. Using the patellar clamp and cut guide, this was resected to a flat surface with at least 13mm of thickness remaining. The size 38 mm patella fit the best. This was oriented and then clamped into position. The lugs were drilled. The trial components were removed. The final components, except for the polyethylene were opened on the back table. The periosteal and capsular tissues, especially posteriorly, around the knee were then systematically injected with a periarticular cocktail consisting of 50cc 0.25% Marcaine, 30mg Ketorolac, 20cc of Exparal and 50cc of injectable saline. The tourniquet was then inflated to 275mmHg. The knee was thoroughly irrigated with a pulse lavage and dried. On the back table, with the implants opened, the cement was mixed. 2 batches of antibiotic laden cement were prepared with vacuum assistance. After the cement was ready a small amount was placed on to the back side of the tibial component at the keel. A small amount was placed onto the posterior flange of the femur. Cement was manual pressurized and impregnated into the cut surface of the tibia. The tibial component was then inserted into the cut surface and impacted into position. Excess cement was removed and the component was reimpacted. Again, excess cement was removed and our attention was then turned to the femur. The femoral cut surface was once again dried and cement was manually impacted into the cut surface. The femoral component was lined with the lug holes and impacted. Excess cement was removed. It was ensured to be down against the cut surface. The trial polyethylene was then inserted and the leg was brought out into full extension for the duration of the cement curing process, approximately 15min. Cement was lastly manually impacted into the cut surface of the patella and the patellar button was clamped into position and held. During this process attention was turned to the gutters of the knee and for all interfaces for any excess cement. After the cement had finally cured, approximately 15min, the clamp was removed from the patella and the knee was taken through range of motion. A size 12 mm polyethylene component provided the best range of motion and stability with less than 2mm gapping with medial and lateral stress and full extension without significant hyperextension. The patella was tracking with a no-thumbs technique. The trial poly was removed and once again the knee was checked for any loose, excess, or errant cement. The poly component was then inserted and impacted into position after cleaning and drying the tibial tray. The capsule was then reapproximated with a No. 1 Vicryl at multiple locations. The capsule was finally closed with a No. 2 Stratafix, barbed suture. The tourniquet was then released and the arthrotomy appeared watertight without significant bleeding. The second dosing of 1g TXA was started. Deep tissues were then reapproximated with 0 Vicryl and 2-0 Vicryl. The skin was closed with a running 3-0 Monocryl in a subcuticular fashion. This was reinforced with skin glue. A Mepilex silver dressing was applied along with a [id number] JOSAFAT wrap. A CryoCuff was applied. Anil was transferred to the hospital bed without difficulty an suffering no apparent complication. Anil has a guarded prognosis given the duration of his symptoms, deformity, and chronic narcotic usage due to knee pain. However, I do expect notable funct ional improvements. Physical therapy will start today and without restrictions, weight-bearing as tolerated. Aspirin 81mg BID will be used for DVT prophylaxis.
[2019-09-07] MEDS: oxyCODONE 5 MG TAB PO (13:31)
[2019-09-07] MEDS: ceFAZolin 1 GM/50 ML BAG IVPB (13:31)
--- NOTE | 2019-09-07 18:29 | NUR.NOTE ---
Nursing Note: 1120 Arrived to [facility] 230 from PACU via bed. Report from Camron Vazquez RN. VSS. All questions answered
== END 2019-09-07 14:50 | disposition home or self-care (01) ==
LOC: PDS 11:08 → MS 11:09
PROVIDERS: Admitting Provider Student in an Organized Health Care Education/Training Program; PCP Family Medicine; Visit Provider Student in an Organized Health Care Education/Training Program
PROC: 0SRD0J9 Replacement of Left Knee Joint with Synthetic Substitute, Cemented, Open Approach (ICD-10-PCS; CPT 27487; principal; 2019-09-07 07:30)
DX: M17.32 Unilateral post-traumatic osteoarthritis, left knee (principal); M25.562 Pain in left knee; M21.062 Valgus deformity, not elsewhere classified, left knee; Z96.652 Presence of left artificial knee joint; G89.18 Other acute postprocedural pain; K21.9 Gastro-esophageal reflux disease without esophagitis; G35 Multiple sclerosis; Z87.820 Personal history of traumatic brain injury; X58.XXXS Exposure to other specified factors, sequela
CPT/HCPCS: 27447; 20985; C1776; 76942; 97162; NC; G0378; J0690; J1100; J1885; J2001; J2250; J2405; J2704

== ENCOUNTER 2019-09-24 11:01 | Outpatient (CLI) | payer OTHER, SELFPAY ==
--- NOTE | 2019-09-24 10:45 | DI.RAD_ITS ---
EXAM: XR KNEE LT 1V CLINICAL HISTORY: 1ST POST OP TECHNIQUE: COMPARISON: CR XR KNEE LT 1V from 09/03/2019 FINDINGS: Single lateral view was obtained and shows total knee joint replacement position. Components appear well seated. No other bony abnormality seen. IMPRESSION:
--- NOTE | 2019-09-24 10:45 | DI.RAD_ITS ---
EXAM: XR STANDING ALIGNMENT CLINICAL HISTORY: 1ST POST OP TECHNIQUE: COMPARISON: CR XR STANDING ALIGNMENT from 09/03/2019 FINDINGS: Standing alignment views of lower extremities were obtained. There is a total knee joint replacement position on the left. There are mild degenerative changes involving the joints of the right knee. Varus angulation noted at the right tibiotalar joint. IMPRESSION:
== END 2019-09-24 11:21 ==
PROVIDERS: PCP Family Medicine; Referring Provider Family Medicine; Visit Provider Student in an Organized Health Care Education/Training Program
DX: Z96.652 Presence of left artificial knee joint (principal); Z47.1 Aftercare following joint replacement surgery; M17.11 Unilateral primary osteoarthritis, right knee
CPT/HCPCS: 73560; 77073

== ENCOUNTER 2019-09-24 11:15 | Outpatient (CLI) | payer OTHER, SELFPAY ==
--- NOTE | 2019-09-24 12:00 | DI.US_ITS ---
EXAM: US LOWER EXTREMITY VENOUS LT CLINICAL HISTORY: Left calf pain and swelling s/p TKA, M79.662. TECHNIQUE: Ultrasound performed using standard protocol. COMPARISON: US US OR ANESTHESIA from 09/07/2019 FINDINGS: Duplex venous ultrasound was performed according to the usual protocol. The deep veins are freely com pressible throughout and there is normal flow augmentation with manual calf compression. 2D and Doppl er evaluation are unremarkable. Note is made of a 52 x 46 x 37 millimeter in diameter complex predominantly fluid collection of the p opliteal region presumably representing a complex or hemorrhagic Pace's cyst versus post surgical he matoma.. IMPRESSION: No evidence of deep venous thrombosis of the lower extremity Complex or hemorrhagic presumed Pace's cyst noted, alternatively this could represent a postsurgical hematoma. Please correlate clinically. DATA REPOSITORY:
== END 2019-09-24 11:35 ==
PROVIDERS: PCP Family Medicine; Visit Provider Student in an Organized Health Care Education/Training Program
DX: M79.662 Pain in left lower leg (principal); R22.42 Localized swelling, mass and lump, left lower limb; Z96.652 Presence of left artificial knee joint; M71.22 Synovial cyst of popliteal space [Baker], left knee
CPT/HCPCS: 93971

== ENCOUNTER 2019-11-01 08:12 | Outpatient (CLI) | payer OTHER, SELFPAY ==
[2019-11-03 15:08] LABS: COVID-19 RT-PCR Result NEGATIVE (Negative)
== END 2019-11-01 08:32 ==
PROVIDERS: PCP Family Medicine; Visit Provider Student in an Organized Health Care Education/Training Program
DX: Z01.818 Encounter for other preprocedural examination (principal); Z11.59 Encounter for screening for other viral diseases
CPT/HCPCS: U0003

== ENCOUNTER 2019-11-03 09:25 | Day surgery (SDC) | payer OTHER, SELFPAY ==
[2019-11-03 09:39] VITALS: BP 140/67; PULSE 71; RESP 18; TEMP 36.7; O2SAT 98
[2019-11-03] MEDS: Lactated Ringers 1,000 ML 80 ML IV (10:15)
--- NOTE | 2019-11-03 10:51 | NUR.NOTE ---
Nursing Note: Pt in DSU room S2D, Pt stated NPO since around 8 oclock last night when asked last time you had anything to eat or drink by this nurse. Nurse finished intake questions and assisted Pt to get into gown for surgery. When Pt stood up from recliner, this nurse noted candies in the chair (specifically Life savers). This nurse asked Pt if he had eaten any this morning and Pt's response was, yeah, I got one in my mouth right now. This nurse explained he wasn't supposed to have anything by mouth and asked him to spit the mint out. The pt replied it'll be gone in a minute. Again this nurse explained to Pt this could delay or cancel his case today. Pt was flippant with this nurse. Before starting IV, this nurse spoke with charge nurse and Monty Hopkins CRNA who went to speak with Pt. Pt was told he would be delayed at least 2 hours. Pt appologized to this nurse for eating the mint and stated I didn't think it'd be that big of a deal. This nurse again explained we needed to be cautious and Pt wanted to continue with surgery, so IV was started. was notified of Pt eating mint, and decided with Pt to move surgery to 11/04/19.HE
== END 2019-11-03 09:45 ==
PROVIDERS: PCP Family Medicine; Visit Provider Student in an Organized Health Care Education/Training Program
DX: R69 Illness, unspecified (principal)

== ENCOUNTER 2019-11-04 11:02 | Day surgery (SDC) | payer OTHER, SELFPAY ==
[2019-11-04] VITALS (7 sets, daily range): BP systolic 113–149; BP diastolic 78–98; PULSE 57–89; RESP 10–22; TEMP 36.4–36.6; O2SAT 95–99
[2019-11-04] MEDS: Lactated Ringers 1,000 ML 80 ML IV (11:35)
[2019-11-04] MEDS: Bupivacaine 0.5% Pres-Free 30 ML VIAL (12:33)
--- NOTE | 2019-11-04 12:45 | PDOC.DSDIS_ITS ---
Discharge Plan Disposition Patient Disposition: HOME Condition: Good Discharge Details Reason For Visit: Left Knee Arthrofibrosis Attending Provider: Jordan Sosa Primary Care Provider: Naeem Clemente Lufkin Meds and New Rx's Prescriptions: New oxycodone 5 mg tablet 5 mg PO Q6H PRN PRNQty: 6 RF: 0 Continued baclofen 10 mg tablet 10 mg PO BID Qty: 60 RF: 12 clonidine HCl [Catapres] 0.1 mg tablet 0.1 mg PO BID RF: 0 cyproheptadine 4 mg tablet 8 mg PO QHS RF: 0 lamotrigine [Lamictal] 100 MG tablet 100 mg PO DAILY RF: 0 magnesium citrate [Citrate of Magnesia] 300 ML solution 300 ml PO NOW Qty: 1 RF: 0 acetaminophen 500 mg tablet 1,000 mg PO Q8H PRN (Reason: pain) Qty: 90 RF: 3 ibuprofen 600 mg tablet 600 mg PO TID PRNQty: 90 RF: 3 methadone 10 mg tablet 10 mg PO TID RF: 0 Discharge Instructions Additional Instructions: Activity: You should begin moving as soon as possible. You may work on flexion but also equally maintain extension. You may bear weight as tolerated, using crutches only for support/comfort. You should apply ice to help with swelling and elevate when possible (especially in the first few days). You should apply ice to assist with swelling and pain. You should start working on the bend as soon as possible on your own and with physical therapy. Medications: - Rarely does this require any stronger pain medications, but it may for the first few days or with PT. Oxycodone has been called in. - Recommend to take up to 1000mg of Acetaminophen (Tylenol) every 8 hours and 600mg of Ibuprofen (Advil) every 8 hours as needed. Follow-up: 7-10 days Referrals: Jordan Sosa MD [ [facility] STAFF PHYSICIAN] - Activity:: Activity as Tolerated Remove Dressings/Wound Care:: 24 hours Shower/Bathe:: 24 hours Diet:: As Tolerated Discharge Orders Discharge Orders: Discharge Order (Routine); Ordered 11/04/19 Ordered By: Jordan Sosa DS: Diagnosis Discharge Diagnosis (1) Arthrofibrosis of total knee arthroplasty: Status: Acute
--- NOTE | 2019-11-04 12:51 | ROE_ITS ---
Date of service: 11/04/19 Time of Service: 12:51 Operative Note Operative Note DATE OF PROCEDURE: 11/04/19 PRE-OP DIAGNOSIS: Left Knee Arthrofibrosis s/p Replacement POST-OP DIAGNOSIS: same PROCEDURE: Left Knee Manipulation Under Anesthesia SURGEON: Jordan Sosa ANESTHESIA: DOMINGO ESTIMATED BLOOD LOSS: 0 PATHOLOGY: none sent TOURNIQUET TIME: 0 COMPLICATIONS: None Patient was transported to: PACU Patient's condition: stable Indications: Anil is a 48 year old male who is s/p knee replacement. Despite diligent work with physical therapy there has been continued stiffness. To assist with mobility, I offered a manipulation under anesthesia. I discussed the risks of the procedure to include bleeding, pain, recurrent stiffness, fracture. Despite these risks, he elects to proceed. Findings: Preoperative flexion = 95 Postoperative flexion = 125 Procedure Description: The patient is agreed in the preoperative holding area. Identity was confirmed and the correct side was identified and marked. The consent was reviewed the patient and signed. History and physical was updated. Anil was taken back to the operating room. The left side was identified as the correct side. A timeout was performed for safe surgery. A general anesthetic was administered. The knee was then prepped with ChloraPrep and an intra-articular injection of 10 cc of 0.5% bupivacaine was administered. Once a muscle relaxant was fully on board manipulation was performed. Pre- manipulation range of motion was noted. A gentle manipulation was performed first into flexion using a very small lever arm and adding gentle and progressive pressure to the tibia. There is audible and palpable crepitus with improvement in range of motion. This was cycled and repeated multiple times. This was brought back into flexion was once again manipulated with gentle and progressive pressure. Final range of motion numbers were recorded. A Band-Aid was applied to the injection site. He was awake from anesthesia and taken to the PACU in stable condition.
[2019-11-04] MEDS: oxyCODONE 5 MG TAB PO (13:51)
== END 2019-11-04 14:15 | disposition home or self-care (01) ==
PROVIDERS: PCP Family Medicine; Visit Provider Student in an Organized Health Care Education/Training Program
PROC: (CPT 27570; principal; 2019-11-04 12:30)
DX: T84.82XA Fibrosis due to internal orthopedic prosthetic devices, implants and grafts, initial encounter (principal); Z96.652 Presence of left artificial knee joint
CPT/HCPCS: 27570; J1885; J2001

== ENCOUNTER 2019-11-19 02:39 | Outpatient (CLI) | payer OTHER, SELFPAY ==
--- NOTE | 2019-11-19 06:30 | DI.MRI_ITS ---
EXAM: MR CERVICAL SPINE WO CLINICAL HISTORY: MS,G35 TECHNIQUE: Multiplanar multisequence MRI of the cervical spine was performed without intravenous con trast. MR MRI - THORACIC SPINE W/WO CONT from 10/11/2013 CR XR KNEE LT 1V from 09/24/2019 FINDINGS: BONES: Vertebral body heights are maintained. Intervertebral disc spaces are normal. Alignment is nor mal. Bone marrow signal intensity is within normal limits. CERVICAL CORD: Craniovertebral junction is unremarkable. The cervical cord is normal size and signal intensity. SOFT TISSUES: Unremarkable. C2-3: No disc herniation or bulge is identified. C3-4: No disc herniation or bulge is identified. C4-5: No disc herniation or bulge is identified. C5-6: Mild loss of disc height and small endplate osteophytes. No disc herniation.. There is no sig nificant narrowing of the central canal. C6-7: No disc herniation or bulge is identified. C7-T1: No disc herniation or bulge is identified. IMPRESSION: Normal cord signal. Degenerative disc changes at C5-6. DATA REPOSITORY:
--- NOTE | 2019-11-19 06:30 | DI.MRI_ITS ---
EXAM: MR BRAIN WO CLINICAL HISTORY: MS,G35. TECHNIQUE: Multiplanar multisequence MRI of the brain was performed. CONTRAST MATERIAL: IV Contrast: ML of Dotarem contrast administered. FINDINGS: There is atrophy, disproportionate to the patient's age. The ventricles are normal in size. There a re multiple abnormal areas of high signal seen in the periventricular white matter, adjacent to the v entricles, consistent with the patient's diagnosis of multiple sclerosis. The size and number of th e lesions have increased when compared with 2014. There is no evidence of mass or acute infarct. T he vascular flow voids appear intact. The pituitary, orbits and mastoid air cells are unremarkable. There is minimal fluid in the left sphenoid sinus. IMPRESSION: Multiple periventricular white matter lesions, increasing from the previous exam, consistent with paige oneill's history of multiple sclerosis. DATA REPOSITORY:
== END 2019-11-19 02:59 ==
PROVIDERS: PCP Family Medicine; Visit Provider Psychiatry & Neurology Neurology
DX: G35 Multiple sclerosis (principal); M50.322 Other cervical disc degeneration at C5-C6 level
CPT/HCPCS: 70551; 72141

== ENCOUNTER 2019-12-10 01:23 | Outpatient (CLI) | payer OTHER, SELFPAY ==
[2019-12-10 09:37] LABS: Abs Immature Grans 0.01 10^3/uL (0.0-0.06); Absolute Basophil Count 0.06 10^3/uL (0.0-0.2); Absolute Eosinophil Count 0.14 10^3/uL (0.0-0.7); Absolute Lymphocyte Count 2.12 10^3/uL (1.2-3.4); Absolute Monocyte Count 0.63 10^3/uL (0.1-0.8); Absolute Neutrophil Count 4.74 10^3/uL (1.2-6.7); Basophils % 0.8; Eosinophils % 1.8; HCT 44.6 % (40.0-50.0); HGB 15.3 g/dL (13.5-17.5); Immature Grans % 0.1; Lymphocytes % 27.5; MCH 28.6 pg (27.0-33.0); MCHC 34.3 % (32.0-36.0); MCV 83.4 fL (80-95); Monocytes % 8.2; Neutrophils % 61.6; Nucleated RBC 0 %; Platelet Count 350 10^3/uL (130-400); RBC 5.35 10^6/uL (4.36-5.78); RDW 12.5 % (11.8-14.1); RDW-SD 37.7 fL
[2019-12-10 10:12] LABS: ALT 13 U/L (16-63); AST 8 U/L (15-37); Albumin 4.2 g/dL (3.4-5.0); Alkaline Phosphatase 120 U/L (46-116); Anion Gap 8.5 mmol/L (3-11); BUN 12 mg/dL (7-18); Bilirubin, Total 0.6 mg/dL (0.2-1.0); CO2 30.5 mmol/L (21.0-32.0); CREATININE 0.89 mg/dL (0.70-1.30); Calcium 9.7 mg/dL (8.5-10.1); Chloride 102 mmol/L (98-107); Glucose 89 mg/dL (74-106); Sodium 141 mmol/L (136-145); Total Protein 7.5 g/dL (6.4-8.2)
[2019-12-13 09:09] LABS: Vitamin D 25 Total 14.7 ng/ml (30-100)
[2019-12-13 10:14] LABS: HIV-1/2 Ag & Ab Screen Negative (Negative)
[2019-12-13 10:29] LABS: HBs Antibody, Qual Negative (See Note); HBs Antibody, Quant <3.1 mIU/mL (See Note); Hepatitis B Core Antibody Negative (Negative); Hepatitis B surface Ag Negative (Negative); Hepatitis C Ab w Rflx HCV PCR Negative (Negative)
[2019-12-13 11:22] LABS: IgA 359 mg/dL (85-499); IgG 854 mg/dL (610-1,616); IgM 181 mg/dL (35-242)
[2019-12-13 12:12] LABS: Varicella IgG Antibody Positive (See Note)
[2019-12-13 15:53] LABS: CD19 9 %
[2019-12-13 15:54] LABS: CD20 9 %
[2019-12-16 17:56] LABS: JC Virus DNA, QN <500 copies/mL; Source PLASMA
== END 2019-12-10 01:43 ==
PROVIDERS: PCP Family Medicine; Visit Provider Psychiatry & Neurology Neurology
DX: G35 Multiple sclerosis (principal); Z11.59 Encounter for screening for other viral diseases; Z11.4 Encounter for screening for human immunodeficiency virus [HIV]; E55.9 Vitamin D deficiency, unspecified
CPT/HCPCS: 80053; 82306; 82784; 86704; 86706; 86787; 86803; 87340; 87389; 87799; 88184; 88185; 85025

== ENCOUNTER 2020-02-14 11:56 | Outpatient (REF) | payer OTHER, SELFPAY ==
[2020-02-16 11:29] LABS: Varicella IgG Antibody Positive (See Note)
[2020-03-13 13:51] LABS: HSV Type 1 Ab, IgG Positive (Negative)
[2020-03-13 13:54] LABS: HSV Type 2 Ab, IgG Negative
== END 2020-02-14 12:16 ==
LOC: NCHCN 11:56
PROVIDERS: PCP Family Medicine; Visit Provider Family Medicine
DX: G35 Multiple sclerosis (principal)
CPT/HCPCS: 86787; 86695; 86696

== ENCOUNTER → 2020-04-27 18:48 | Outpatient (REF) | payer OTHER, SELFPAY ==
[2020-04-27 18:26] LABS: HCT 43.3 % (40.0-50.0); HGB 15.3 g/dL (13.5-17.5); MCH 30.6 pg (27.0-33.0); MCHC 35.3 % (32.0-36.0); MCV 86.6 fL (80-95); Platelet Count 370 10^3/uL (130-400); RDW 11.8 % (11.8-14.1); RDW-SD 37.3 fL; WBC 8.24 10^3/uL (4.4-10.8)
[2020-04-27 18:51] LABS: ALT 14 U/L (16-63); AST 12 U/L (15-37); Albumin 4.2 g/dL (3.4-5.0); Alkaline Phosphatase 128 U/L (46-116); BUN 14 mg/dL (7-18); CREATININE 1.06 mg/dL (0.70-1.30); Calcium 9.8 mg/dL (8.5-10.1); Chloride 102 mmol/L (98-107); Glucose 91 mg/dL (74-106); Potassium 3.9 mmol/L (3.5-5.1); Sodium 140 mmol/L (136-145); TSH (W/Ref FT4) 0.65 uIU/mL (0.36-3.74); Total Protein 7.1 g/dL (6.4-8.2)
[2020-04-27 18:56] LABS: Hemoglobin A1C 4.8 % (<5.7)
== END ==
LOC: NCHCN 18:48
PROVIDERS: PCP Family Medicine; Visit Provider Family Medicine
DX: R63.4 Abnormal weight loss (principal); R42 Dizziness and giddiness; Z13.1 Encounter for screening for diabetes mellitus
CPT/HCPCS: 80053; 85027; 83036; 84443

== ENCOUNTER 2020-12-06 17:32 | Outpatient (REF) | payer OTHER, SELFPAY ==
[2020-12-06 19:20] LABS: Bilirubin Small (Negative); Blood Negative (Negative); Clarity Clear (Clear); Glucose 100 mg/dL (Negative); Ketones Negative (Negative); Leukocyte Esterase Small (Negative); Nitrite Negative (Negative); Specific Gravity 1.025 (1.005-1.025); Urobilinogen >=8.0 EU/dL (Up TO 0.2)
[2020-12-06 19:50] LABS: RBC 0-2 HPF (0-2); WBC >50 HPF (0-5)
[2020-12-06 19:51] LABS: Bacteria Negative HPF (Negative); C & S Indicated? Yes; Casts Negative LPF (Negative); Crystals Negative HPF (Negative); Epithelial Cells Rare HPF (Negative); Mucus Negative (Negative); Other Cells Rare Renal (Negative)
== END 2020-12-06 17:33 | disposition home or self-care (01) ==
LOC: NCHCN 17:32
PROVIDERS: PCP Family Medicine; Visit Provider Family Medicine
DX: N39.0 Urinary tract infection, site not specified (principal)
CPT/HCPCS: 81003; 81015; 87086

== ENCOUNTER 2021-03-16 00:36 | Outpatient (CLI) | payer OTHER, SELFPAY ==
--- NOTE | 2021-03-16 | DI.RAD_ITS ---
Exam(s) XR THORACIC SPINE COMPLETE EXAM: XR THORACIC SPINE COMPLETE CLINICAL HISTORY: THORACIC BACK PAIN, M54.9, CHRONIC PAIN, NEW FOCAL UPPER THORACIC PAIN. TECHNIQUE: 2D digital imaging was performed. COMPARISON: CR THORACIC SPINE from 02/28/2014 FINDINGS: BONES: There is a mild compression of the superior endplate of T5, not seen on the previous exam. Th e previously noted mild T11 compression fractures not well demonstrated, at the edge of the images. The patient was unable to tolerate additional images. DISKS:Alignment is within normal limits. Endplate osteophytes greatest at T11-12. SOFT TISSUE: Visualized lungs are clear. IMPRESSION: Mild T5 compression fracture, new when compared with 2013.. DATA REPOSITORY: RADIATION DOSE DELIVERED:
== END 2021-03-16 00:56 ==
LOC: DI 00:36
PROVIDERS: PCP Family Medicine; Visit Provider Family Medicine
DX: M54.9 Dorsalgia, unspecified (principal); S22.050A Wedge compression fracture of T5-T6 vertebra, initial encounter for closed fracture; X58.XXXA Exposure to other specified factors, initial encounter
CPT/HCPCS: 72072

== ENCOUNTER 2021-03-19 14:52 | Outpatient (CLI) | payer OTHER, SELFPAY ==
--- NOTE | 2021-03-19 14:45 | DI.RAD_ITS ---
Exam(s) XR KNEE LT 2V AP,LAT EXAM: XR KNEE LT 2V AP,LAT CLINICAL HISTORY: annual f/u L TKA. TECHNIQUE: 2D digital imaging was performed. COMPARISON: CR XR KNEE LT 1V from 09/24/2019 FINDINGS: stable position alignment of the components of the prosthesis. no fracture or loosening evident. IMPRESSION: DATA REPOSITORY: RADIATION DOSE DELIVERED:
== END 2021-03-19 14:53 | disposition home or self-care (01) ==
LOC: DIORS 14:53
PROVIDERS: PCP Family Medicine; Referring Provider Family Medicine; Visit Provider Student in an Organized Health Care Education/Training Program
DX: Z96.652 Presence of left artificial knee joint
CPT/HCPCS: 73560

== ENCOUNTER 2021-05-23 01:08 | Outpatient (CLI) | payer OTHER, SELFPAY ==
--- NOTE | 2021-05-23 | DI.DEXA_ITS ---
Exam(s) XR DEXA BONE DENSITY W/WO ASHLEY EXAM: XR DEXA BONE DENSITY W/WO ASHLEY CLINICAL HISTORY: SCREENING FOR OSTEOPOROSIS, Z13.820,MS,MULT COMPRESSION FXS TECHNIQUE: COMPARISON: No exams were available for comparison FINDINGS: DEXA scan was performed according to the usual protocol. Lateral vertebral scanogram shows no gross vertebral compression fracture. Left hip scanning shows T-score -2.1 with left femoral neck T-score -2.5. Lumbar spine scanning shows T-score -2.4. Left forearm scanning shows T-score -0.9. IMPRESSION: The findings are consistent with osteoporosis according to the WHO criteria. RADIATION DOSE DELIVERED: Total DLP
== END 2021-05-23 01:28 ==
LOC: DI 01:09
PROVIDERS: PCP Family Medicine; Visit Provider Family Medicine
DX: M81.0 Age-related osteoporosis without current pathological fracture (principal); G35 Multiple sclerosis; Z87.311 Personal history of (healed) other pathological fracture; R26.89 Other abnormalities of gait and mobility
CPT/HCPCS: 77080

== ENCOUNTER 2021-06-15 02:28 | Outpatient (CLI) | payer OTHER, SELFPAY ==
--- NOTE | 2021-06-15 06:30 | DI.MRI_ITS ---
Exam(s) MR BRAIN WO EXAM: MR BRAIN WO CLINICAL HISTORY: MS; progressing,g35 TECHNIQUE: Multiplanar multisequence MRI of the brain was performed. COMPARISON: MR MR BRAIN WO from 11/19/2019 MR MR CERVICAL SPINE WO from 06/15/2021 FINDINGS: CEREBRAL PARENCHYMA: There is no evidence of intracranial hemorrhage, mass effect, or shift of midline structures. There are no extra-axial fluid collections. Ventricles are not enlarged or shifted. Again noted are the previously described foci of Violette in supra ventricular white matter, exhibiting m inimal if any significant change when compared to the study of 11/19/2019. Apparently a history of m ultiple sclerosis here. There are no new significant foci of abnormal signal in the cerebellar hemis pheres nor within the rika, midbrain, and thalami. On diffusion imaging there is mild increased sign al seen into left-sided plaques which is unchanged from the prior study. There is are no new areas o f restricted diffusion on DWI. No microhemorrhages evident on SWI. PITUITARY GLAND: No mass nor parasellar abnormality. No obvious abnormality in the cavernous sinuses. FLOW VOIDS: The expected flow void are noted. No evidence of obvious aneurysm nor obvious vascular ma lformation. PARANASAL SINUSES: The visualized paranasal sinuses presently appear unremarkable. No obvious finding ORBITS: No obvious findings. IMPRESSION: As above. Stable appearance when compared to the prior MRI scan of 11/19/2019. DATA REPOSITORY:
--- NOTE | 2021-06-15 06:30 | DI.MRI_ITS ---
Exam(s) MR CERVICAL SPINE WO EXAM: MR CERVICAL SPINE WO CLINICAL HISTORY: MS progressing,g35 TECHNIQUE: Multiplanar multisequence MRI of the cervical spine was performed without intravenous con trast. COMPARISON: MR MR CERVICAL SPINE WO from 11/19/2019 FINDINGS: CERVICOMEDULLARY JUNCTION: Intact with no evidence of cerebellar tonsillar ectopia. No obvious abnor mality of the odontoid process. No evidence of Chiari 1 malformation. CERVICAL SPINAL CORD: There is no abnormal signal in the cervical spinal cord and no evidence of foca l cord atrophy nor focal cord swelling. OSSEOUS:There are no cervical fractures evident. No significant osseous lesions in the cervical vert ebrae. Slightly exaggerated curvature of the cervical spine is unchanged from the prior study. This patient has a capacious cervical canal with no evidence of canal stenosis. INDIVIDUAL LEVELS: C2-3: No disc herniation nor central canal stenosis. No foraminal stenosis. Mild facet arthropathy C3-4: No disc herniation nor central canal stenosis.No facet arthropathy. No foraminal stenosis. C4-5: No disc herniation nor central canal stenosis.Mild right-sided facet arthropathy. Left facet u nremarkable. No prominent foraminal stenosis. C5-6: Mild disc space narrowing again noted at this level but without a significant disc herniation. No central canal stenosis. No prominent foraminal stenosis. Moderate bilateral facet arthropathy a t this level. C6-7: Normal disc height and signal. No disc herniation. No central canal stenosis. No foraminal s tenosis. Facet joints unremarkable. C7-T1: No disc herniation nor central canal stenosis. No facet arthropathy.No foraminal stenosis. IMPRESSION: 1. No evidence of significant disc herniation nor spinal canal stenosis. Minimal if any significant foraminal stenosis. Some mild multilevel asymmetric facet arthropathy again noted. 2. Cervical spinal cord appears unremarkable no abnormal signal and no evidence of focal cord swellin g nor focal cord atrophy. 3. Exam is centrally unchanged from the prior MRI study of 11/19/2019. DATA REPOSITORY:
== END 2021-06-15 02:48 ==
LOC: DI 02:28
PROVIDERS: PCP Family Medicine; Visit Provider Psychiatry & Neurology Neurology
DX: G35 Multiple sclerosis (principal)
CPT/HCPCS: 70551; 72141

== ENCOUNTER 2021-06-15 03:57 | Outpatient (CLI) | payer OTHER, SELFPAY ==
[2021-06-15 08:37] LABS: HCT 46.4 % (40.0-50.0); HGB 16.5 g/dL (13.5-17.5); MCH 30.2 pg (27.0-33.0); MCHC 35.6 % (32.0-36.0); MPV 10.7 fL (8.0-11.0); Platelet Count 289 10^3/uL (130-400); RBC 5.46 10^6/uL (4.36-5.78); RDW 11.9 % (11.8-14.1); RDW-SD 36.6 fL; WBC 8.74 10^3/uL (4.4-10.8)
[2021-06-15 09:22] LABS: ALT 27 U/L (16-63); AST 18 U/L (15-37); Albumin 4.4 g/dL (3.4-5.0); Alkaline Phosphatase 93 U/L (46-116); Anion Gap 8.4 mmol/L (3-11); BUN 14 mg/dL (7-18); Bilirubin, Total 1.8 mg/dL (0.2-1.0); CO2 31.6 mmol/L (21.0-32.0); Calcium 9.5 mg/dL (8.5-10.1); Chloride 100 mmol/L (98-107); Glucose 111 mg/dL (74-106); Potassium 4.1 mmol/L (3.5-5.1); Sodium 140 mmol/L (136-145); Total Protein 7.3 g/dL (6.4-8.2); Vitamin B12 374 pg/mL (193-986)
[2021-06-18 01:57] LABS: Vitamin D 25 Total 16.8 ng/mL (30-100)
[2021-06-18 10:29] LABS: IgA 239 mg/dL (85-499); IgG 650 mg/dL (610-1,616); IgM 173 mg/dL (35-242)
[2021-06-18 12:32] LABS: HBs Antibody, Qual Negative (See Note); HBs Antibody, Quant <3.1 mIU/mL (See Note); Hepatitis B Core Antibody Negative (Negative); Hepatitis B surface Ag Negative (Negative); Hepatitis C Ab w Rflx HCV PCR Negative (Negative)
[2021-06-22 16:09] LABS: JC Virus DNA, QN <500 copies/mL; Source PLASMA
== END 2021-06-15 03:58 | disposition home or self-care (01) ==
LOC: LBO 03:57
PROVIDERS: PCP Family Medicine; Visit Provider Psychiatry & Neurology Neurology
DX: G35 Multiple sclerosis (principal); G62.9 Polyneuropathy, unspecified
CPT/HCPCS: 36415; 80053; 82306; 82784; 85027; 86704; 86706; 86803; 87340; 87799; 82607; 82746

== ENCOUNTER 2021-08-03 00:56 | Outpatient (RCR) | payer OTHER, SELFPAY ==
[2021-08-03] VITALS (7 sets, daily range): BP systolic 106–129; BP diastolic 68–85; PULSE 75–96; RESP 18; TEMP 36.3–36.9; O2SAT 93–97
[2021-08-03] MEDS: Acetaminophen 325 MG TAB 650 MG PO (08:27)
[2021-08-03] MEDS: diphenhydrAMINE 50 MG/ML VIAL IVP (08:28)
[2021-08-03] MEDS: methylPREDNISolone SUCC 125 MG VIAL 100 MG IVP (08:30)
[2021-08-03] MEDS: Normal Saline Flush 10 ML SYR IVP (09:06)
[2021-08-17] VITALS (7 sets, daily range): BP systolic 100–127; BP diastolic 67–82; PULSE 76–89; RESP 16; TEMP 36.4–37; O2SAT 93–99
[2021-08-17] MEDS: Acetaminophen 325 MG TAB 650 MG PO (08:14)
[2021-08-17] MEDS: diphenhydrAMINE 50 MG/ML VIAL IVP (08:14)
[2021-08-17] MEDS: methylPREDNISolone SUCC 125 MG VIAL 100 MG IVP (08:15)
== END 2021-08-18 23:59 | disposition home or self-care (01) ==
LOC: INF 00:56
PROVIDERS: PCP Family Medicine; Visit Provider Psychiatry & Neurology Neurology
DX: G35 Multiple sclerosis (principal)
CPT/HCPCS: 96365; 96366; 96374; 96375; J1200; J2350; J2930

== ENCOUNTER 2021-12-07 00:44 | Outpatient (RCR) | payer OTHER, SELFPAY ==
[2021-12-07] MEDS: ZOLEDRONIC ACID/MANNITOL/WATER 5 MG/100 ML BTL 300 MG IVPB (08:59)
[2021-12-07] MEDS: Normal Saline Flush 10 ML SYR IVP (08:59)
== END 2021-12-19 23:59 | disposition home or self-care (01) ==
LOC: INF 00:44
PROVIDERS: PCP Family Medicine; Visit Provider Nurse Practitioner Acute Care
DX: G35 Multiple sclerosis (principal); M81.0 Age-related osteoporosis without current pathological fracture
CPT/HCPCS: 96365; J3489

== ENCOUNTER 2022-02-07 03:33 | Outpatient (RCR) | payer OTHER, SELFPAY ==
[2022-02-07] VITALS (9 sets, daily range): BP systolic 106–134; BP diastolic 66–88; PULSE 65–90; RESP 16–18; TEMP 36.1–37; O2SAT 95–99
[2022-02-07] MEDS: diphenhydrAMINE 50 MG/ML VIAL IVP (08:04)
[2022-02-07] MEDS: methylPREDNISolone SUCC 125 MG VIAL 100 MG IVP (08:04)
[2022-02-07] MEDS: Acetaminophen 325 MG TAB 650 MG PO (08:04)
[2022-02-07] MEDS: Normal Saline Flush 10 ML SYR IVP (08:05)
[2022-02-07] MEDS: OCRELIZUMAB 600 MG in Normal Saline 500 ML 40 MG IVPB (08:14)
[2022-02-07 08:19] LABS: Abs Immature Grans 0.02 10^3/uL (0.0-0.06); Absolute Basophil Count 0.04 10^3/uL (0.0-0.2); Absolute Eosinophil Count 0.18 10^3/uL (0.0-0.7); Absolute Lymphocyte Count 1.71 10^3/uL (1.2-3.4); Absolute Monocyte Count 0.65 10^3/uL (0.1-0.8); Absolute Neutrophil Count 4.67 10^3/uL (1.2-6.7); Basophils % 0.6; Eosinophils % 2.5; HCT 42.7 % (40.0-50.0); HGB 15.2 g/dL (13.5-17.5); Immature Grans % 0.3; Lymphocytes % 23.5; MCHC 35.6 % (32.0-36.0); MCV 87 fL (80-95); MPV 10.3 fL (8.0-11.0); Monocytes % 8.9; Neutrophils % 64.2; Platelet Count 298 10^3/uL (130-400); RBC 4.91 10^6/uL (4.36-5.78); RDW 11.9 % (11.8-14.1); RDW-SD 37.7 fL; WBC 7.27 10^3/uL (4.4-10.8)
[2022-02-07 08:39] LABS: ALT 42 U/L (16-63); AST 18 U/L (15-37); Albumin 4.4 g/dL (3.4-5.0); Alkaline Phosphatase 68 U/L (46-116); Anion Gap 10.7 mmol/L (3-11); BUN 20 mg/dL (7-18); Bilirubin, Total 1.8 mg/dL (0.2-1.0); CO2 30.3 mmol/L (21.0-32.0); Calcium 9.5 mg/dL (8.5-10.1); Chloride 104 mmol/L (98-107); Glucose 126 mg/dL (74-106); Potassium 3.9 mmol/L (3.5-5.1); Sodium 145 mmol/L (136-145); Total Protein 7.6 g/dL (6.4-8.2)
[2022-02-07 09:06] LABS: Vitamin D 25 Total 27.8 ng/mL (30-100)
[2022-02-08 08:42] LABS: IgA 257 mg/dL (85-499); IgG 613 mg/dL (610-1,616); IgM 170 mg/dL (35-242)
[2022-02-08 14:07] LABS: CD19 <1 % (6-24); CD20 <1 % (6-24)
== END 2022-02-18 23:59 | disposition home or self-care (01) ==
LOC: INF 03:33
PROVIDERS: PCP Family Medicine; Visit Provider Psychiatry & Neurology Neurology
DX: G35 Multiple sclerosis (principal)
CPT/HCPCS: 36415; 80053; 82306; 82784; 88184; 88185; 96365; 96366; 96374; 85025; J1200; J2350; J2930

== ENCOUNTER → 2022-04-12 00:21 | Outpatient (CLI) | payer OTHER, SELFPAY ==
--- NOTE | 2022-04-12 08:15 | DI.MRI_ITS ---
Exam(s) MR BRAIN WO EXAM: MR BRAIN WO CLINICAL HISTORY: new L HH in MS patient, lt homonymous hemianopsia, H53.462 TECHNIQUE: Multiplanar multisequence MRI of the brain was performed. COMPARISON: MR MR BRAIN WO from 06/15/2021 FINDINGS: VENTRICLES AND EXTRA AXIAL SPACES: Normal in size and morphology for the patient's age. MIDLINE SHIFT: None. CEREBRAL PARENCHYMA: No focus of restricted diffusion to suggest acute infarct. No space-occupying le ke identified. There has been no change in the appearance of the white matter lesions seen on the F LAIR and T2 weighted images in the periventricular region. No new lesions are identified. HEMORRHAGE: None. BRAINSTEM/CEREBELLUM: Normal. CALVARIUM: Normal. VISUALIZED PARANASAL SINUSES/MASTOIDS:Clear. [place]GEL: Normal flow void. PITUITARY GLAND: Unremarkable. OTHER FINDINGS: None. IMPRESSION: Stable appearance of the MRI of the brain compared to 06/15/2021. DATA REPOSITORY:
== END ==
PROVIDERS: PCP Family Medicine; Visit Provider Psychiatry & Neurology Neurology
DX: G35 Multiple sclerosis (principal); H53.462 Homonymous bilateral field defects, left side
CPT/HCPCS: 70551

== ENCOUNTER 2022-04-23 08:28 | Day surgery (SDC) | payer OTHER, SELFPAY ==
--- NOTE | 2022-04-22 20:30 | W.PM.DSUDISC ---
Date of service: 04/23/22 Time of Service: 10:58 Discharge Plan Disposition Patient Disposition: Home Condition: Good Discharge Details Reason For Visit: Umbilical hernia repair Attending Provider: Wil Roman Primary Care Provider: Naeem Clemente Home Meds and New Rx's Prescriptions: New tramadol 50 mg tablet 50 mg PO Q8H PRN (Reason: pain) Qty: 9 0RF Rx Instructions: Take 1 tablet by mouth up to every 8 hours as needed for severe pain. Do not drive while taking this medication. Be careful as this medication is addictive. Continued trazodone 50 mg tablet 50 - 100 mg PO QHS pantoprazole 40 mg tablet,delayed release (DR/EC) 40 mg PO DAILY lamotrigine [Lamictal] 100 mg tablet 300 mg PO DAILY meloxicam 7.5 mg tablet 7.5 mg PO HS Aimovig Autoinjector 140 mg/mL auto-injector 140 mg subcut QMONTH Qty: 1 11RF baclofen 10 mg tablet 10 mg PO BID Qty: 60 methadone 10 mg tablet 10 mg PO TID Label Comments: TAKE 2 TABS. BY MOUTH 3 TIMES A DAY AT 6AM 12PM AND 6PM FOR CHRONIC PAIN acetaminophen 500 mg tablet 1,000 mg PO Q8H PRN (Reason: pain) Qty: 90 3RF ibuprofen 600 mg tablet 600 mg PO TID PRNQty: 90 3RF Discharge Instructions Instructions: Umbilical Hernia (GEN) Additional Instructions: 1. Resume all of your medications. 2. Okay to use tylenol and ibuprofen over the counter as needed. Use tramadol as needed for severe pain. 3. Heating pads and cold packs are fine to use for pain. 4. Leave bandage in place for 24 hours, then remove. 5. Shower with warm soapy water. Pat dry. Use a bandaid if needed to protect your clothing. 6. No soaking or tub baths until I see you in the office. 7. No heavy lifting until I see you in the office. 8.Call the office (or go directly to the emergency room after hours) if you notice any of the following: Develop chills (warm to touch), or if you have a thermometer and your temperature is above 101 Difficulty breathing or difficultly swallowing Persistent vomiting Any bleeding ? exceeding one tablespoon 9. Call your physician if the site where your intravenous was started becomes red, swollen, painful, and warm to touch. Referrals: Wil Roman MD [ [facility]FF PHYSICIAN] - Activity:: no heavy lifting Remove Dressings/Wound Care:: 24 hours Shower/Bathe:: 24 hours Diet:: As Tolerated DS: Diagnosis Discharge Diagnosis (1) Umbilical hernia: Asessment and Plan: We fix that hernia today with a permanent implantable mesh. Follow the discharge instructions below. Follow-up in my office for routine postoperative care as scheduled.
--- NOTE | 2022-04-22 20:34 | W.PM.OP ---
Date of service: 04/23/22 Time of Service: 11:01 Operative Note Operative Note DATE OF PROCEDURE: 04/23/22 PRE-OP DIAGNOSIS: Umbilical hernia POST-OP DIAGNOSIS: same PROCEDURE: Umbilical herniorraphy SURGEON: Wil Roman ANESTHESIA TYPE: Local By Surgeon, General LMA/ETT and Other (Bilateral rectus sheath blocks) Refer to Anesthesia Record ESTIMATED BLOOD LOSS: 25 PATHOLOGY: none sent COMPLICATIONS: None Patient was transported to: PACU Patient's condition: stable Implants: Bard Ventralex ST hernia patch Indications: Anil is a 51-year-old male with a painful umbilical hernia Procedure Description: After the induction of general endotracheal anesthesia, and establishment of bilateral rectus sheath blocks with ultrasound guidance by the anesthesia specialist, I prepped and draped the anterior abdominal wall in the usual fashion. I used local anesthetic to also establish a field block at the skin level. Next, I made a semielliptical incision in the supraumbilical position. I dissected down through the subcutaneous fat to isolate the hernia sac. I dissected off the underside of the umbilicus, and performed circumferential dissection down to the fascia. Next, I reduced the hernia sac and its contents into the peritoneal position. I dissected the underside of the fascia, and delivered a Bard Ventralex ST hernia patch in the infra rectus position. I affixed it to the fascia with interrupted Prolene stitches. Next, I closed the defect over it also with interrupted Prolenes. I irrigated the surgical site and closed the subcuticular layer with interrupted Vicryl stitches. Once again I irrigated, and I approximated the skin with interrupted Monocryl sutures. I applied bandages, the patient was transferred to the recovery unit.
[2022-04-23] VITALS (9 sets, daily range): BP systolic 92–134; BP diastolic 57–90; PULSE 77–104; RESP 16–18; TEMP 36.2–37; O2SAT 95–99; BMI 24.0
[2022-04-23] MEDS: Acetaminophen 500 MG TAB 1000 MG PO (09:08)
[2022-04-23] MEDS: Gabapentin 300 MG CAP 600 MG PO ×2 (09:08→09:09)
[2022-04-23] MEDS: Celecoxib 200 MG CAP PO (09:08)
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
[2022-04-23] MEDS: Lactated Ringers 1,000 ML 80 ML IV (09:22)
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
[2022-04-23] MEDS: ceFAZolin 2 GM/50 ML BAG IVPB (10:11)
[2022-04-23] MEDS: Bupivacaine 0.25% Pres-Free 30 ML VIAL (10:49)
--- NOTE | 2022-04-23 11:31 | W.ANESNERVE ---
Nerve Block Single Injection Procedure Date and Time Date Performed: 04/23/22 Procedure Start: 10:11 Location Where Procedure Performed Procedure Location: Operating Room Procedure Stop: 10:21 Reason Performed: Postoperative Analgesia Requesting Provider: Wil Roman Timeout Performed Timeout Performed: Yes Monitoring Used ECG, Blood Pressure, SpO2, ETCO2 and See EMR for corresponding vital signs Sterility Sterility: Hand Hygiene, Surgical Cap, Surgical Mask, Sterile Gloves and Chlorhexidine Sedation Given During Procedure Sedation Given (Indicate Dose Given): No Sedation given Patient Mental Status Patient Mental Status: Performed under general anesthesia Nerve Block 1st Nerve Block: Laterality: Bilateral Block Type: Rectus Sheath (Bilateral) Ultrasound Image Saved?: Yes Needle / Catheter Used: 100mm SonoPlex II Local Anesthetic Bolus (Indicate Dose Given): Injected in 3-5ml increments after negative blood aspiration, Half of Total block solution given into each side and Bupivacaine 0.25% Dose:: 20 ml Additives (Indicate Dose Given): None Ultrasound: Sterile probe cover and gel used Nerve Stimulator: Not Used Paresthesia: None Post Procedure Pain score (0-10): 0 Procedure Tolerated: No Complications and Patient tolerated well Procedure Outcome: Successful Performed By: Kimberley Arteaga Supervised By: Dylan Diana
--- NOTE | 2022-04-23 11:41 | W.ANESPOSTOP ---
Postoperative Evaluation Date, Time and Location Date Performed: 04/23/22 Time Performed: 11:42 Patient Location: Day Surgery Unit Vital Signs Most Recent Imported Vital Signs: Most Recent Vital Signs Temp Pulse Resp BP Pulse Ox 36.8 C 82 17 133/74 99 04/23/22 11:20 04/23/22 11:20 04/23/22 11:20 04/23/22 11:20 04/23/22 11:20 Pain Score Most Recent Pain Score: Most Recent Pain Score Pain Level 0 04/23/22 11:20 Assessment Mental Status: Awake (Alert & Oriented to Patient Baseline) Airway and Respiratory Function: Patent airway with normal (patient baseline) respiratory exam Cardiovascular Function: Hemodynamically Stable Hydration Status: Adequately Hydrated Nausea & Vomiting: No Nausea or Vomiting Pain: Pt. Denies Any Pain Peripheral Nerve Block: Regional nerve block not resolved at time of post operative discharge
== END 2022-04-23 13:40 | disposition home or self-care (01) ==
PROVIDERS: PCP Family Medicine; Visit Provider Surgery
PROC: (CPT 49592; principal; 2022-04-23 10:00)
DX: K42.0 Umbilical hernia with obstruction, without gangrene (principal); G35 Multiple sclerosis
CPT/HCPCS: 49592; 76942; C1781; J0690; J1100; J2250; J2405; J2704

== ENCOUNTER 2022-08-16 00:58 | Outpatient (RCR) | payer BC, SELFPAY ==
[2022-08-16] VITALS (7 sets, daily range): BP systolic 105–133; BP diastolic 52–84; PULSE 70–87; RESP 16–18; TEMP 36.3–36.8; O2SAT 94–97
[2022-08-16] MEDS: Acetaminophen 325 MG TAB 650 MG PO (07:48)
[2022-08-16] MEDS: methylPREDNISolone SUCC 125 MG VIAL 100 MG IVP (07:50)
[2022-08-16] MEDS: diphenhydrAMINE 50 MG/ML VIAL IVP (07:50)
[2022-08-16] MEDS: Normal Saline Flush 10 ML SYR IVP (07:56)
[2022-08-16] MEDS: OCRELIZUMAB 600 MG in Normal Saline 500 ML 300 MG IVPB (08:15)
== END 2022-08-18 23:59 | disposition home or self-care (01) ==
LOC: INF 00:58
PROVIDERS: PCP Family Medicine; Visit Provider Psychiatry & Neurology Neurology
DX: G35 Multiple sclerosis (principal)
CPT/HCPCS: 96365; 96366; 96374; 96375; J1200; J2350; J2930

== ENCOUNTER 2022-08-16 01:22 | Outpatient (CLI) | payer BC, SELFPAY ==
[2022-08-16 07:34] LABS: Abs Immature Grans 0.01 10^3/uL (0.0-0.06); Absolute Basophil Count 0.07 10^3/uL (0.0-0.2); Absolute Eosinophil Count 0.12 10^3/uL (0.0-0.7); Absolute Lymphocyte Count 1.82 10^3/uL (1.2-3.4); Absolute Monocyte Count 0.86 10^3/uL (0.1-0.8); Absolute Neutrophil Count 5.21 10^3/uL (1.2-6.7); Basophils % 0.9; Eosinophils % 1.5; HCT 46.2 % (40.0-50.0); HGB 16.8 g/dL (13.5-17.5); Immature Grans % 0.1; Lymphocytes % 22.5; MCH 31.1 pg (27.0-33.0); MCHC 36.4 % (32.0-36.0); MCV 86 fL (80-95); MPV 10.4 fL (8.0-11.0); Monocytes % 10.6; Neutrophils % 64.4; Platelet Count 342 10^3/uL (130-400); RDW 11.9 % (11.8-14.1); RDW-SD 36.6 fL; WBC 8.09 10^3/uL (4.4-10.8)
[2022-08-16 08:01] LABS: ALT 26 U/L (16-63); AST 14 U/L (15-37); Albumin 4.4 g/dL (3.4-5.0); Alkaline Phosphatase 64 U/L (46-116); Anion Gap 5.6 mmol/L (3-11); BUN 22 mg/dL (7-18); Bilirubin, Total 1.7 mg/dL (0.2-1.0); CO2 33.4 mmol/L (21.0-32.0); CREATININE 1.1 mg/dL (0.70-1.30); Calcium 9.5 mg/dL (8.5-10.1); Chloride 105 mmol/L (98-107); Estimated GFR 80.27 (mL/min/1.73m2); Glucose 116 mg/dL (74-106); Potassium 3.8 mmol/L (3.5-5.1); Sodium 144 mmol/L (136-145); Total Protein 7.5 g/dL (6.4-8.2)
[2022-08-19 11:31] LABS: IgA 272 mg/dL (85-499); IgG 639 mg/dL (610-1616); IgM 166 mg/dL (35-242)
== END 2022-08-16 01:23 | disposition home or self-care (01) ==
LOC: LBO 01:22
PROVIDERS: PCP Family Medicine; Visit Provider Psychiatry & Neurology Neurology
DX: G35 Multiple sclerosis (principal); E80.6 Other disorders of bilirubin metabolism
CPT/HCPCS: 36415; 80053; 82306; 82784; 85025

== ENCOUNTER 2022-09-13 01:32 | Outpatient (CLI) | payer BC, SELFPAY ==
[2022-09-13 13:33] LABS: Bilirubin, Direct 0.3 mg/dL (0.0-0.2)
== END 2022-09-13 01:33 | disposition home or self-care (01) ==
LOC: LBO 01:32
PROVIDERS: PCP Family Medicine; Visit Provider Psychiatry & Neurology Neurology
DX: E80.6 Other disorders of bilirubin metabolism (principal)
CPT/HCPCS: 36415; 82248

== ENCOUNTER 2022-12-04 17:42 | Emergency (ER) | payer BC, SELFPAY ==
[2022-12-04 17:52] VITALS: BP 153/93; PULSE 100; RESP 20; TEMP 37; O2SAT 97
--- NOTE | 2022-12-04 18:00 | RT.EKG_ITS ---
APPROVED REPORT Exam: Resting ECG Reason for Exam: ?qtc prolongation on methadone Patient Location: E HR:100 bpm ECG Measurements Heart Rate 100 AXIS GA 157 P 32 QRSd 83 QRS 11 QT 354 T 81 QTc 457 Conclusion Sinus tachycardia...rate> 99 Probable anteroseptal infarct, recent...Q, ST>0.15mV, T neg, V1-V2
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
[2022-12-04] MEDS: Normal Saline 1,000 ML 1000 ML IV (18:25)
[2022-12-04 18:26] LABS: Abs Immature Grans 0.08 10^3/uL (0.0-0.06); Absolute Neutrophil Count 15.73 10^3/uL (1.2-6.7); Basophils % 0.2; Eosinophils % 0.1; HCT 43.8 % (40.0-50.0); HGB 16.2 g/dL (13.5-17.5); Immature Grans % 0.4; Lymphocytes % 7.7; MCH 30.5 pg (27.0-33.0); MCV 83 fL (80-95); Monocytes % 8.9; Neutrophils % 82.7; Platelet Count 515 10^3/uL (130-400); RBC 5.31 10^6/uL (4.36-5.78); RDW 11.7 % (11.8-14.1); RDW-SD 34.5 fL; WBC 19.02 10^3/uL (4.4-10.8)
[2022-12-04] MEDS: Ondansetron 4 MG/2 ML VIAL IVP (18:28)
--- NOTE | 2022-12-04 18:30 | DI.CT_ITS ---
Exam(s) CT ABDOMEN PELVIS W EXAM: CT ABDOMEN PELVIS W CLINICAL HISTORY: n/v, left lower abdominal pain. TECHNIQUE: Imaging Protocol: Axial computed tomography images with coronal and sagittal reformatted images were created and reviewed CONTRAST MATERIAL: Intravenous: Omnipaque-350 100cc Oral: None COMPARISON: CT ABD PELVIS WO CONTRAST from 10/09/2012 FINDINGS: VISUALIZED LUNG BASES: No nodules nor pleural effusions evident. ABDOMEN: There is no ascites. Small hiatal hernia again noted. LIVER: There are no focal hepatic lesions evident. No dilated intrahepatic ducts. GALLBLADDER/BILIARY: No obvious gallbladder pathology. CBD is not dilated. PANCREAS: There is hypodensity in the pancreatic head junction with uncinate process. This may be sl ightly prominent duct at this level versus is cystic structure but was not evident on the prior CT sc an of 2012. There is a tiny parenchymal calcification noted in the pancreatic body. No mass at this level. SPLEEN: Spleen is not enlarged. No obvious intrasplenic lesions. Splenic and portal veins are paten t. Benign splenule again noted. ADRENALS: There are no significant adrenal masses. KIDNEYS:No cysts evident. No solid renal masses. No calculi nor hydronephrosis.. Retroaortic left renal vein noted. Seen approximately 5 percent of the general population. ABDOMINAL AORTA: Abdominal aorta is not enlarged. LYMPH NODES:There is no retroperitoneal nor paraaortic adenopathy. ABDOMINAL WALL: No evidence of significant anterior abdominal wall nor inguinal hernia. GI: There is no evidence of bowel obstruction, free air, nor abscess. PELVIS: GI: No evidence of appendicitis.No evidence of sigmoid diverticulitis. LYMPH NODES: There is no intrapelvic nor inguinal adenopathy. REPRODUCTIVE: Prostate minimally prominent. Seminal vesicles unremarkable. URINARY BLADDER: Is some thickening the posterior and lateral roth of urinary bladder. No radiopaqu e calculi. OSSEOUS: Deformities of the posterior left 11th and 12th ribs noted not evident in 2013 and probably related to prior fractures. No acute fractures evident. IMPRESSION: 1. No evidence of appendicitis nor diverticulitis, given the presenting history here. 2. There is a hypo density in the pancreatic head-uncinate process measuring approximately 10 x 4 mm. This may be slight dilatation of the duct at this level versus is a cystic mallet E/lesion. This f inding was not evident on prior CT scan of 2013. Recommend follow-up contrast infused pancreatic pro tocol MRI/MRCP. First read by [facility] Final report called by myself to ER physician 12/05/2022 9:05 am. RADIATION DOSE DELIVERED: 799.13mGy.cm Total DLP DATA REPOSITORY: All CT scans at this facility are submitted to the National Radiology Data Registry (NRDR) Dose Index Registry (DIR) with the [employer] ([employer]). RADIATION OPTIMIZATION: All CT scans at this facility use at least one of these dose optimization te chniques: automated exposure control; mA and/or kV adjustment per patient size (includes targeted exa ms where dose is matched to clinical indication); or iterative reconstruction.
[2022-12-04 18:33] LABS: Absolute Basophil Count 0.04 10^3/uL (0.0-0.2); Absolute Eosinophil Count 0.02 10^3/uL (0.0-0.7); Absolute Lymphocyte Count 1.46 10^3/uL (1.2-3.4); Absolute Monocyte Count 1.69 10^3/uL (0.1-0.8)
[2022-12-04 18:42] LABS: ALT 39 U/L (16-63); AST 20 U/L (15-37); Albumin 4.1 g/dL (3.4-5.0); Alkaline Phosphatase 80 U/L (46-116); Anion Gap 13.3 mmol/L (3-11); BUN 25 mg/dL (7-18); Bilirubin, Total 1.6 mg/dL (0.2-1.0); CO2 28.7 mmol/L (21.0-32.0); CREATININE 0.9 mg/dL (0.70-1.30); Calcium 10.3 mg/dL (8.5-10.1); Chloride 95 mmol/L (98-107); Estimated GFR 102.12 (mL/min/1.73m2); Glucose 137 mg/dL (74-106); Potassium 3.2 mmol/L (3.5-5.1); Sodium 137 mmol/L (136-145); Total Protein 7.9 g/dL (6.4-8.2)
[2022-12-04 18:45] LABS: Diff Comment Diff Reviewed; Lipase 26 U/L (16-77); Magnesium 2.1 mg/dL (1.8-2.4); TSH (W/Ref FT4) 0.35 uIU/mL (0.36-3.74)
[2022-12-04 18:46] LABS: RBC Morphology Normal
[2022-12-04] MEDS: Normal Saline - Diluent 50 ML VIAL IJ (18:51)
[2022-12-04] MEDS: Normal Saline Flush 10 ML SYR IVP (18:52)
[2022-12-04] MEDS: Omnipaque 350 MG/ML 100 ML BTL IJ (18:52)
[2022-12-04 19:01] LABS: FREE T4 1.48 ng/dL (0.76-1.46)
--- NOTE | 2022-12-04 19:31 | NUR.NOTE ---
This RN assumed care at this time, received report from Abel , introduced self to pt, no needs verbalized
--- NOTE | 2022-12-04 19:50 | DI.VRAD_ITS ---
PROCEDURE INFORMATION: Exam: CT Abdomen And Pelvis With Contrast Exam date and time: 12/04/2022 7:15 PM Age: 51 years old Clinical indication: Abdominal pain; Localized; Left lower quadrant (llq); Prior surgery; Surgery date: 6+ months; Surgery type: Hernia repair; Patient HX: Llq pain, n/v for 2 weeks; Additional info: HX of ms TECHNIQUE: Imaging protocol: Computed tomography of the abdomen and pelvis with contrast. Radiation optimization: All CT scans at this facility use at least one of these dose optimization techniques: automated exposure control; mA and/or kV adjustment per patient size (includes targeted exams where dose is matched to clinical indication); or iterative reconstruction. Contrast material: OMNIPAQUE 350; Contrast volume: 100 ml; Contrast route: INTRAVENOUS (IV); COMPARISON: CR ABD FLAT UPRIGHT PA CHEST 03/14/2016 6:26 PM FINDINGS: Liver: Normal. No mass. Gallbladder and bile ducts: Normal. No calcified stones. No ductal dilation. Pancreas: Normal. No ductal dilation. Spleen: Normal. No splenomegaly. Adrenal glands: Normal. No mass. Kidneys and ureters: Normal. No hydronephrosis. Stomach and bowel: Unremarkable. No obstruction. No mucosal thickening. Appendix: The appendix is visualized and appears normal. Intraperitoneal space: Unremarkable. No free air. No significant fluid collection. Vasculature: Mild scattered atherosclerotic calcification of the aorta. No evidence of aortic aneurysm or dissection. Incidentally noted retroaortic left renal vein. Lymph nodes: Unremarkable. No enlarged lymph nodes. Urinary bladder: Unremarkable as visualized. Reproductive: Unremarkable as visualized. Bones/joints: Unremarkable. No acute fracture. Soft tissues: Unremarkable. IMPRESSION: No acute abnormality Dictated and Authenticated by: Neville Mcdonough MD. Ordering:CHINTAN Gonsales MD
[2022-12-04 20:05] LABS: Bilirubin Negative (Negative); Blood Small (Negative); Clarity Clear (Clear); Glucose Negative (Negative); Ketones Trace mg/dL (Negative); Leukocyte Esterase Small (Negative); Nitrite Negative (Negative); Specific Gravity 1.015 (1.005-1.025); pH 6.5 (5-8)
[2022-12-04 20:17] LABS: Bacteria Many HPF (Negative); C & S Indicated? Yes; Crystals Negative HPF (Negative); Epithelial Cells Rare HPF (Negative); Mucus Negative (Negative); Other Cells Few Transitional (Negative); WBC 20-50 HPF (0-5)
[2022-12-04] MEDS: cefTRIAXone 2 GM/50 ML BAG IVPB (20:26)
--- NOTE | 2022-12-05 09:11 | ED.PROG_ITS ---
Date of service: 12/05/22 Time of Service: 09:11 Medical Decision Making I received a call from radiology department concerning over read on this patient who was seen last night had a CT abdomen pelvis performed. Radiology this morning reported that they had seen a new pancreatic head abnormality. This was a change from a prior study dated in 2012 and was concerning for the possibility of a cystic structure which could represent a neoplasm for which radiology advised a pancreatic protocol MRI/MRCP with contrast. I will reach out to the patient's primary care provider to best facilitate this follow-up. I will call the patient myself or request that the patient's primary care provider make contact with the patient. 10:36 AM I spoke with the patient's Tri who reported that he was doing well. I advised the patient's of the incidental finding in his pancreatic head concerning for possibility of malignancy for which radiology advised MRI. I am still waiting to hear back from the patient's primary care provider. 10:50 AM I spoke with Dr. Clemente, the patient's PCP. He will help to order outpatient MRI. Discharge Plan Disposition Patient Disposition: Home Condition: Stable Discharge Details Clinical Impression: Urinary tract infection, N&V (nausea and vomiting), Abdominal pain Primary Care Provider: Naeem Clemente ED Provider: Dru Badillo [facility] Meds and New Rx's Prescriptions: New ondansetron 4 mg tablet,disintegrating 4 mg PO Q8H PRN (Reason: nausea and vomiting) Qty: 30 0RF cefpodoxime 200 mg tablet 200 mg PO BID Qty: 20 0RF Rx Instructions: must administer with a meal/food Continued trazodone 50 mg tablet 50 - 100 mg PO QHS pantoprazole 40 mg tablet,delayed release (DR/EC) 40 mg PO DAILY lamotrigine [Lamictal] 100 mg tablet 300 mg PO DAILY meloxicam 7.5 mg tablet 7.5 mg PO HS baclofen 10 mg tablet 10 mg PO BID Qty: 60 methadone 10 mg tablet 10 mg PO TID Patient Comments: TAKE 2 TABS. BY MOUTH 3 TIMES A DAY AT 6AM 12PM AND 6PM FOR CHRONIC PAIN psyllium husk [Fiber (psyllium husk)] 0.52 gram capsule 0.52 g PO DAILY sennosides [Natural Senna Laxative] 8.6 mg tablet 8.6 mg PO BID PRN magnesium citrate 100 mg tablet 100 mg PO DAILY meclizine 25 mg tablet 25 mg PO QID PRN cholecalciferol (vitamin D3) 50 mcg (2,000 unit) capsule 50 mcg PO DAILY zoledronic [id number] [Reclast] 5 mg/100 mL piggyback IV polyethylene glycol 3350 [Miralax] 17 gram powder in packet 17 g PO DAILY acetaminophen 500 mg tablet 1,000 mg PO Q8H PRN (Reason: pain) Qty: 90 3RF ibuprofen 600 mg tablet 600 mg PO TID PRNQty: 90 3RF tramadol 50 mg tablet 50 mg PO Q8H PRN (Reason: pain) Qty: 9 0RF Rx Instructions: Take 1 tablet by mouth up to every 8 hours as needed for severe pain. Do not drive while taking this medication. Be careful as this medication is addictive. Discharge Instructions Instructions: Urinary Tract Infection in Men (ED), Acute Nausea and Vomiting (ED) Additional Instructions: follow up with your primary care provider within 1 week especially if you are not improving if you feel more ill, have severe worsening pain or fevers return to the emergency department Discharge Data Discharge Date/Time-TO BE ENTERED AT DEPARTURE: 12/04/22 20:52
--- NOTE | 2022-12-05 09:16 | NUR.NOTE ---
Nursing Note:in chart to find primary provider
--- NOTE | 2022-12-07 08:39 | NUR.NOTE ---
Nursing Note: Accessed chart to look up whether or not on antibiotic.
== END 2022-12-04 20:52 | disposition home or self-care (01) ==
PROVIDERS: Emergency Provider Emergency Medicine; PCP Family Medicine
DX: R11.2 Nausea with vomiting, unspecified (principal); N39.0 Urinary tract infection, site not specified; R10.32 Left lower quadrant pain; R00.0 Tachycardia, unspecified; K86.89 Other specified diseases of pancreas; Z98.890 Other specified postprocedural states; G35 Multiple sclerosis; N31.9 Neuromuscular dysfunction of bladder, unspecified; G89.4 Chronic pain syndrome; Z87.820 Personal history of traumatic brain injury; Z79.891 Long term (current) use of opiate analgesic
CPT/HCPCS: 36415; 80053; 83690; 87077; 93005; 96361; 96365; 96375; 99285; 74177; 81003; 81015; 83735; 84439; 84443; 85025; 85610; 85730; 87086; 87186; 93010; J2405; J3490

== ENCOUNTER 2023-01-03 01:06 | Outpatient (RCR) | payer BC, SELFPAY ==
[2023-01-03] MEDS: ZOLEDRONIC ACID/MANNITOL/WATER 5 MG/100 ML BTL 300 MG IVPB (12:38)
== END 2023-01-18 23:59 | disposition home or self-care (01) ==
LOC: INF 01:06
PROVIDERS: PCP Family Medicine; Visit Provider Family Medicine
DX: M81.0 Age-related osteoporosis without current pathological fracture (principal)
CPT/HCPCS: 96365; J3489

== ENCOUNTER → 2023-01-07 02:48 | Outpatient (CLI) | payer BC, SELFPAY ==
--- NOTE | 2023-01-07 09:15 | DI.MRI_ITS ---
Exam(s) MR ABDOMEN WO/W EXAM: MR ABDOMEN WO/W CLINICAL HISTORY: PANCREATIC LESION, K86.9, PANCREATIC HEAD MASS TECHNIQUE: Multiplanar multisequence MRI of the Abdomen was performed. CONTRAST MATERIAL: IV Contrast: 15 mL of Dotarem contrast administered. COMPARISON: CT ABD PELVIS WO CONTRAST from 10/09/[address] ABDOMEN PELVIS W from 12/04/2022 FINDINGS: Liver: Unremarkable. There is no evidence of a hepatic mass. Pancreas: There is no evidence of a pancreatic mass or enhancing lesion. The fluid attenuation lesio n seen on the CT scan from 12/04 appears to correspond to a fluid signal intensity lesion on the MRI. It shows no enhancement. It also appears to communicate with the pancreatic ductal system. Gallbladder and Bile Ducts: No evidence of cholelithiasis. No biliary ductal dilatation. Adrenals: Unremarkable. Kidneys: Unremarkable. There is a retroaortic left renal vein. Spleen: Unremarkable. Note is made of an accessory spleen in the hilum. Bowel: Unremarkable. Aorta: Unremarkable. Soft Tissues: Unremarkable. Bone: Unremarkable. Lymph Nodes: Unremarkable. IMPRESSION: 1. No evidence of a pancreatic mass. The ???hypodensity in the pancreatic head-uncinate process??? a ppears to be a component of the pancreatic ductal system. 2. No acute abdominal process. DATA REPOSITORY:
[2023-01-07] MEDS: Gadoterate meglumine 20 ML VIAL IVP (10:03)
== END ==
PROVIDERS: PCP Family Medicine; Visit Provider Family Medicine
DX: K86.9 Disease of pancreas, unspecified (principal)
CPT/HCPCS: 74183

== ENCOUNTER 2023-01-13 18:37 | Outpatient (REF) | payer BC, SELFPAY ==
[2023-01-13 20:27] LABS: HCT 48.8 % (40.0-50.0); HGB 17.8 g/dL (13.5-17.5); MCH 30.2 pg (27.0-33.0); MCHC 36.5 % (32.0-36.0); MCV 83 fL (80-95); MPV 11.3 fL (8.0-11.0); Platelet Count 466 10^3/uL (130-400); RBC 5.89 10^6/uL (4.36-5.78); RDW 11.7 % (11.8-14.1); RDW-SD 35.3 fL; WBC 18.41 10^3/uL (4.4-10.8)
[2023-01-13 20:45] LABS: Bilirubin Small (Negative); Blood Trace-intact (Negative); Clarity Clear (Clear); Glucose Negative (Negative); Ketones 15 mg/dL (Negative); Leukocyte Esterase Moderate (Negative); Nitrite Negative (Negative)
[2023-01-13 21:19] LABS: ALT 94 U/L (16-63); AST 47 U/L (15-37); Albumin 4.4 g/dL (3.4-5.0); Alkaline Phosphatase 74 U/L (46-116); Anion Gap 13.2 mmol/L (3-11); BUN 26 mg/dL (7-18); CO2 26.8 mmol/L (21.0-32.0); CREATININE 0.8 mg/dL (0.70-1.30); Calcium 9.7 mg/dL (8.5-10.1); Chloride 91 mmol/L (98-107); Estimated GFR 105.17 (mL/min/1.73m2); Glucose 141 mg/dL (74-106); Potassium 3.5 mmol/L (3.5-5.1); Sodium 131 mmol/L (136-145); TSH (W/Ref FT4) 0.32 uIU/mL (0.36-3.74); Total Protein 7.7 g/dL (6.4-8.2)
[2023-01-13 21:37] LABS: Bacteria Negative HPF (Negative); C & S Indicated? No/Sq. Contamination; Crystals Negative HPF (Negative); Epithelial Cells Few HPF (Negative); Mucus Heavy (Negative); Other Cells Few Transitional (Negative); RBC 0-2 HPF (0-2); WBC 20-50 HPF (0-5)
[2023-01-13 22:02] LABS: FREE T4 1.42 ng/dL (0.76-1.46)
== END 2023-01-13 18:38 | disposition home or self-care (01) ==
LOC: NCHCN 18:37
PROVIDERS: PCP Family Medicine; Visit Provider Family Medicine
DX: R94.6 Abnormal results of thyroid function studies (principal); K92.0 Hematemesis; E83.52 Hypercalcemia; E80.6 Other disorders of bilirubin metabolism; R11.10 Vomiting, unspecified; N39.0 Urinary tract infection, site not specified
CPT/HCPCS: 80053; 85027; 81003; 81015; 84439; 84443

== ENCOUNTER 2023-01-22 19:21 | Outpatient (REF) | payer BC, SELFPAY ==
[2023-01-22 19:33] LABS: Abs Immature Grans 0.04 10^3/uL (0.0-0.06); Absolute Basophil Count 0.05 10^3/uL (0.0-0.2); Absolute Eosinophil Count 0.18 10^3/uL (0.0-0.7); Absolute Lymphocyte Count 1.61 10^3/uL (1.2-3.4); Absolute Monocyte Count 0.99 10^3/uL (0.1-0.8); Absolute Neutrophil Count 6.63 10^3/uL (1.2-6.7); Basophils % 0.5; Eosinophils % 1.9; HCT 45.1 % (40.0-50.0); HGB 15.8 g/dL (13.5-17.5); Immature Grans % 0.4; Lymphocytes % 16.9; MCH 30.2 pg (27.0-33.0); MCV 86 fL (80-95); MPV 10.3 fL (8.0-11.0); Monocytes % 10.4; Neutrophils % 69.9; Platelet Count 420 10^3/uL (130-400); RBC 5.23 10^6/uL (4.36-5.78); RDW 11.9 % (11.8-14.1); RDW-SD 37.4 fL
[2023-01-22 20:01] LABS: ALT 24 U/L (16-63); AST 14 U/L (15-37); Albumin 3.7 g/dL (3.4-5.0); Alkaline Phosphatase 59 U/L (46-116); Anion Gap 9.7 mmol/L (3-11); BUN 17 mg/dL (7-18); Bilirubin, Direct 0.2 mg/dL (0.0-0.2); Bilirubin, Total 0.7 mg/dL (0.2-1.0); CO2 27.3 mmol/L (21.0-32.0); Calcium 9.8 mg/dL (8.5-10.1); Chloride 101 mmol/L (98-107); Glucose 122 mg/dL (74-106); Potassium 4.3 mmol/L (3.5-5.1); Sodium 138 mmol/L (136-145); TSH (W/Ref FT4) 0.96 uIU/mL (0.36-3.74); Total Protein 6.8 g/dL (6.4-8.2)
[2023-01-22 20:06] LABS: CREATININE 0.8 mg/dL (0.70-1.30); Estimated GFR 105.17 (mL/min/1.73m2)
[2023-01-25 13:06] LABS: Mitochondrial Ab, M2 <0.1 U
== END 2023-01-22 19:22 | disposition home or self-care (01) ==
LOC: NCHCN 19:21
PROVIDERS: PCP Family Medicine; Visit Provider Family Medicine
DX: E80.6 Other disorders of bilirubin metabolism (principal); R74.01 Elevation of levels of liver transaminase levels; R94.6 Abnormal results of thyroid function studies; D72.829 Elevated white blood cell count, unspecified; E87.1 Hypo-osmolality and hyponatremia
CPT/HCPCS: 80048; 80076; 83516; 84443; 85025

== ENCOUNTER 2023-02-14 01:15 | Outpatient (RCR) | payer BC, SELFPAY ==
[2023-02-14] MEDS: Normal Saline Flush 10 ML SYR IVP (10:21)
[2023-02-14] MEDS: methylPREDNISolone SUCC 125 MG VIAL 100 MG IV (10:22)
[2023-02-14] MEDS: Acetaminophen 325 MG TAB 650 MG PO (10:22)
[2023-02-14] MEDS: diphenhydrAMINE 50 MG/ML VIAL IVP (10:22)
[2023-02-14 10:44] LABS: Abs Immature Grans 0.03 10^3/uL (0.0-0.06); Absolute Basophil Count 0.05 10^3/uL (0.0-0.2); Absolute Eosinophil Count 0.17 10^3/uL (0.0-0.7); Absolute Lymphocyte Count 2.12 10^3/uL (1.2-3.4); Absolute Neutrophil Count 3.42 10^3/uL (1.2-6.7); Basophils % 0.7; Eosinophils % 2.5; HCT 46.7 % (40.0-50.0); HGB 16.2 g/dL (13.5-17.5); Immature Grans % 0.4; Lymphocytes % 31.7; MCH 29.9 pg (27.0-33.0); MCHC 34.7 % (32.0-36.0); MCV 86 fL (80-95); MPV 10.2 fL (8.0-11.0); Monocytes % 13.5; Neutrophils % 51.2; Platelet Count 378 10^3/uL (130-400); RBC 5.42 10^6/uL (4.36-5.78); RDW 12.3 % (11.8-14.1); RDW-SD 39.1 fL; WBC 6.69 10^3/uL (4.4-10.8)
[2023-02-14] MEDS: OCRELIZUMAB 600 MG in Normal Saline 500 ML 86.667 MG IVPB (10:54)
[2023-02-14 10:59] VITALS: BP 99/67; PULSE 76; RESP 17; TEMP 36.4; O2SAT 96
[2023-02-14 11:01] LABS: ALT 29 U/L (16-63); AST 13 U/L (15-37); Albumin 4.4 g/dL (3.4-5.0); Alkaline Phosphatase 58 U/L (46-116); Anion Gap 8.5 mmol/L (3-11); BUN 19 mg/dL (7-18); Bilirubin, Total 1.3 mg/dL (0.2-1.0); CO2 31.5 mmol/L (21.0-32.0); CREATININE 0.8 mg/dL (0.70-1.30); Calcium 9.4 mg/dL (8.5-10.1); Chloride 102 mmol/L (98-107); Estimated GFR 105.17 (mL/min/1.73m2); Glucose 99 mg/dL (74-106); Potassium 3.7 mmol/L (3.5-5.1); Sodium 142 mmol/L (136-145); Total Protein 7.5 g/dL (6.4-8.2)
[2023-02-14 11:15] VITALS: BP 99/65; PULSE 68; RESP 17; TEMP 35.7; O2SAT 95
[2023-02-14 11:30] VITALS: BP 99/65; PULSE 66; RESP 17; TEMP 36.4; O2SAT 97
[2023-02-14 11:35] LABS: Vitamin D 25 Total 28.4 ng/mL (30-100)
[2023-02-14 12:00] VITALS: BP 113/58; PULSE 76; RESP 17; TEMP 36.5; O2SAT 97
[2023-02-14 12:30] VITALS: BP 104/66; PULSE 76; RESP 17; TEMP 36.3; O2SAT 97
[2023-02-14 13:00] VITALS: BP 100/67; PULSE 93; RESP 16; TEMP 36.2; O2SAT 98
[2023-02-17 11:03] LABS: IgA 292 mg/dL (85-499); IgG 628 mg/dL (610-1616); IgM 149 mg/dL (35-242)
== END 2023-02-18 23:59 | disposition home or self-care (01) ==
LOC: INF 01:15
PROVIDERS: Psychiatry & Neurology Neurology; PCP Family Medicine; Visit Provider Family Medicine
DX: G35 Multiple sclerosis (principal)
CPT/HCPCS: 80053; 82306; 82784; 96365; 96366; 96374; 85025; J1200; J2350; J2930

== ENCOUNTER 2023-03-27 19:05 | Emergency (ER) | payer BC, SELFPAY ==
--- NOTE | 2023-03-27 19:00 | DI.CT_ITS ---
Exam(s) CT ABDOMEN PELVIS W EXAM: CT ABDOMEN PELVIS W CLINICAL HISTORY: intractable vomiting, no BM 4 days. TECHNIQUE: Imaging Protocol: Axial computed tomography images with coronal and sagittal reformatted images were created and reviewed CONTRAST MATERIAL: Intravenous: Omnipaque-350 100cc Oral: None COMPARISON: CT CT ABDOMEN PELVIS W from 12/04/2022 FINDINGS: VISUALIZED LUNG BASES: Mild increased dependent markings both lung bases. No pleural effusions.. Mo derate size hiatal hernia. ABDOMEN: There is no ascites. LIVER: There are no focal hepatic lesions evident. No dilated intrahepatic ducts. GALLBLADDER/BILIARY: No obvious gallbladder pathology. CBD is not dilated. PANCREAS: Pancreas appears unremarkable on today's study. The previously described area of subtle hy podensity in the pancreatic head is not evident on today's study. The pancreatic duct is not dilated . SPLEEN: Spleen is not enlarged. No obvious intrasplenic lesions. Splenic and portal veins are paten t. ADRENALS: There is mild thickening of both limbs of both adrenal glands evident without a distinct fo kusum nodule. No adrenal calcifications evident. No evidence of adrenal hemorrhage. KIDNEYS:No cysts evident. No solid renal masses. No calculi nor hydronephrosis.. ABDOMINAL AORTA: Abdominal aorta is not enlarged. Retroaortic left renal vein again noted. LYMPH NODES:There is no retroperitoneal nor paraaortic adenopathy. ABDOMINAL WALL: No evidence of significant anterior abdominal wall nor inguinal hernia. GI: There is abundant fecal material noted throughout the colon, similar to previous. There is no ev idence of significant diverticular disease in the colon. No evidence of appendicitis. No obvious co litis pattern. PELVIS: GI: No evidence of appendicitis.No evidence of sigmoid diverticulitis. LYMPH NODES: There is no intrapelvic nor inguinal adenopathy. REPRODUCTIVE: Prostate size normal. URINARY BLADDER: There is abnormal relatively circumferential thickening of the urinary bladder wall again noted, similar to 12/04/2022. No radiopaque calculi in the urinary bladder. No bladder divert iculi seen. The pelvic ureters are not dilated. OSSEOUS: No acute fractures and no significant osseous lesions. Healing posterior left rib fractures again noted. IMPRESSION: 1. There is abundant fecal material again noted throughout the colon, similar to the prior study of 0 12/04/2022. No obvious bowel obstruction. No evidence of appendicitis nor diverticulitis. 2. No significant findings in the kidneys. However, there is abnormal thickening of the urinary blad ashutosh wall again noted, similar to 12/04/2022. Recommend urology consultation for cystoscopy. First read by [facility] Final report called by myself to ER physician 03/28/2023 9:40 a.m.. RADIATION DOSE DELIVERED: Total DLP DATA REPOSITORY: All CT scans at this facility are submitted to the National Radiology Data Registry (NRDR) Dose Index Registry (DIR) with the [employer] (A[employer]). RADIATION OPTIMIZATION: All CT scans at this facility use at least one of these dose optimization te chniques: automated exposure control; mA and/or kV adjustment per patient size (includes targeted exa ms where dose is matched to clinical indication); or iterative reconstruction.
[2023-03-27 19:07] VITALS: BP 166/80; PULSE 112; RESP 16; TEMP 36.7; O2SAT 97
[2023-03-27] MEDS: ACETAMINOPHEN 1,000 MG/100 ML BTL 400 MG IVPB (19:35)
[2023-03-27] MEDS: diphenhydrAMINE 50 MG/ML VIAL 25 MG IVP (19:37)
[2023-03-27] MEDS: Lactated Ringers 1,000 ML 1000 ML IV ×2 (19:37→21:55)
[2023-03-27] MEDS: Droperidol 5 MG/2 ML VIAL 2.5 MG IVP (19:37)
[2023-03-27 19:51] LABS: HCT 41.6 % (40.0-50.0); HGB 15.2 g/dL (13.5-17.5); MCH 30.5 pg (27.0-33.0); MCHC 36.5 % (32.0-36.0); MCV 84 fL (80-95); Platelet Count 434 10^3/uL (130-400); RBC 4.98 10^6/uL (4.36-5.78); RDW 12.3 % (11.8-14.1); RDW-SD 37.2 fL; WBC 20.68 10^3/uL (4.4-10.8)
[2023-03-27 19:53] LABS: Lactate 2.5 mmol/L (0.6-1.4)
[2023-03-27 19:55] LABS: ESR 2 mm/hr (0-20)
[2023-03-27 20:05] LABS: Absolute Lymphocyte Count 1.03 10^3/uL (1.2-3.4); Absolute Monocyte Count 1.86 10^3/uL (0.1-0.8); Absolute Neutrophil Count 17.78 10^3/uL (1.2-6.7)
[2023-03-27 20:06] LABS: Diff Comment Diff Reviewed
[2023-03-27 20:07] LABS: RBC Morphology Normal
[2023-03-27 20:18] LABS: Ammonia 20 umol/L (11-32)
[2023-03-27 20:19] LABS: ALT 48 U/L (16-63); AST 27 U/L (15-37); Albumin 4.1 g/dL (3.4-5.0); Alkaline Phosphatase 48 U/L (46-116); Anion Gap 11.5 mmol/L (3-11); BUN 34 mg/dL (7-18); Bilirubin, Total 2.9 mg/dL (0.2-1.0); C-Reactive Protein 0.07 mg/dL (0.0-0.3); CO2 26.5 mmol/L (21.0-32.0); CREATININE 1.2 mg/dL (0.70-1.30); Calcium 9.4 mg/dL (8.5-10.1); Chloride 97 mmol/L (98-107); Creatine Kinase 62 U/L (39-308); Estimated GFR 71.86 (mL/min/1.73m2); Glucose 141 mg/dL (74-106); Lipase 21 U/L (16-77); Magnesium 1.9 mg/dL (1.8-2.4); NT-proBNP 142 pg/mL (<300); Potassium 3.4 mmol/L (3.5-5.1); Sodium 135 mmol/L (136-145); TSH (W/Ref FT4) 0.65 uIU/mL (0.36-3.74); Total Protein 7.1 g/dL (6.4-8.2); Troponin I < 50 ng/L (<or=60)
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
[2023-03-27] MEDS: Normal Saline Flush 10 ML SYR IVP (20:29)
[2023-03-27] MEDS: Normal Saline - Diluent 50 ML VIAL IJ (20:29)
[2023-03-27 20:30] LABS: Procalcitonin < 0.1 ng/mL
[2023-03-27] MEDS: Omnipaque 350 MG/ML 100 ML BTL IJ (20:38)
[2023-03-27 20:53] LABS: Bilirubin Negative (Negative); Blood Negative (Negative); Clarity Clear (Clear); Glucose Negative (Negative); Ketones 40 mg/dL (Negative); Leukocyte Esterase Trace (Negative); Nitrite Negative (Negative)
[2023-03-27 20:55] VITALS: TEMP 36.9; O2SAT 96
[2023-03-27 20:57] LABS: Bacteria Few HPF (Negative); Casts 0-2 Fine Granular LPF (Negative); Crystals Negative HPF (Negative); Epithelial Cells Rare HPF (Negative); Mucus Moderate (Negative); RBC Negative HPF (0-2)
[2023-03-27 20:58] LABS: C & S Indicated? Yes
--- NOTE | 2023-03-27 21:36 | DI.VRAD_ITS ---
PROCEDURE INFORMATION: Exam: CT Abdomen And Pelvis With Contrast Exam date and time: 03/27/2023 8:58 PM Age: 52 years old Clinical indication: Nausea and vomiting; Additional info: Intractable vomiting, no bm 4 days TECHNIQUE: Imaging protocol: Computed tomography of the abdomen and pelvis with contrast. Contrast material: OMNI 350; Contrast volume: 100 ml; Contrast route: INTRAVENOUS (IV); COMPARISON: 1. MR ABDOMEN WO/W 01/07/2023 9:[address] ABDOMEN PELVIS W 12/04/2022 7:15 PM FINDINGS: Lungs: Dependent opacities are noted in both lung bases. Mild peribronchial soft tissue thickening noted in both lower lobes. Liver: Normal. No mass. Gallbladder and bile ducts: Normal. No calcified stones. No ductal dilation. Pancreas: No inflammatory change. No significant ductal dilatation. No calcifications. Spleen: Normal. No splenomegaly. Adrenal glands: Mild adrenal hypertrophy. No suspicious nodules. Kidneys and ureters: Symmetric enhancement. No hydronephrosis. Non-dilated ureters. No stones. Stomach and bowel: Unremarkable stomach. Nondilated small bowel. Negative for inflammatory changes around the colon. Moderate stool noted in the proximal colon. The sigmoid colon and rectum are comparatively collapsed. No significant diverticular disease observed. Appendix: A normal appendix is observed inferior and lateral to the cecum. Intraperitoneal space: No free fluid. No free air. No abscess. Vasculature: Mild vascular calcifications. Negative for abdominal aortic aneurysm. Lymph nodes: Unremarkable. No enlarged lymph nodes. Urinary bladder: Mild wall thickening posteriorly. No stones. No diverticula. Reproductive: Unremarkable as visualized. Bones/joints: Negative for compression fracture. Multilevel degenerative disc disease and facet arthropathy noted. Old fractures are observed at the left 9th, 10th, and 11th ribs. Soft tissues: No significant abdominal wall hernia. The ischiopubic fat spaces are intact, without inflammatory change or fluid collections. IMPRESSION: No acute findings. No bowel obstruction. Moderate colonic stool. Dictated and Authenticated by: Dru Antonio MD. Ordering:AAKASH Clay MD
--- NOTE | 2023-03-27 22:30 | RT.EKG_ITS ---
APPROVED REPORT Exam: Resting ECG Reason for Exam: tachycardia Patient Location: E HR:117 bpm ECG Measurements Heart Rate 117 AXIS CO 153 P 49 QRSd 80 QRS 18 QT 319 T 16 QTc 444 Conclusion Sinus tachycardia...rate> 99 Probable anteroseptal infarct, recent...Q, ST>0.15mV, T neg, V1-V2
[2023-03-27 22:36] LABS: Lactate 1.4 mmol/L (0.6-1.4)
[2023-03-27 23:10] VITALS: BP 149/80; PULSE 120; TEMP 36.2; O2SAT 93
--- NOTE | 2023-03-28 09:45 | W.ED.FU ---
Date of service: 03/28/23 Time of Service: 09:45 Follow Up Plan: I was contacted by Dr. Hobson in regards to the CT result. Patient CT scan showed thickening of the bladder. Reviewed the clinical scenario shows that the patient had a notable urinary tract infection at that time. Dr. Hobson did comment on the thickening of the bladder recommended follow-up because of this for potential cystoscopy. In the setting that the patient had a urinary tract infection I do suspect that this is likely because of the bladder wall thickening. Case will be forwarded to the patient's PCP as a precaution.
== END 2023-03-27 23:20 | disposition left against medical advice (07) ==
PROVIDERS: Emergency Provider Physician Assistant; PCP Family Medicine
DX: R11.2 Nausea with vomiting, unspecified (principal); R10.9 Unspecified abdominal pain; R00.0 Tachycardia, unspecified; G35 Multiple sclerosis; Z53.29 Procedure and treatment not carried out because of patient's decision for other reasons
CPT/HCPCS: 36410; 80053; 82550; 83690; 84145; 85652; 87040; 93005; 96361; 96374; 96375; 99285; 74177; 81003; 81015; 82140; 83605; 83735; 83880; 84443; 84484; 85025; 86140; 87086; 93010; 99284; J0131; J1200; J1790; J3490

== ENCOUNTER 2023-05-20 15:00 | Outpatient (REF) | payer BC, SELFPAY ==
[2023-05-20 16:37] LABS: ALT 22 U/L (16-63); AST 13 U/L (15-37); Alkaline Phosphatase 67 U/L (46-116); Anion Gap 9.8 mmol/L (3-11); BUN 16 mg/dL (7-18); Bilirubin, Total 0.7 mg/dL (0.2-1.0); CO2 27.2 mmol/L (21.0-32.0); CREATININE 0.8 mg/dL (0.70-1.30); Calcium 9.7 mg/dL (8.5-10.1); Chloride 104 mmol/L (98-107); Estimated GFR 105.17 (mL/min/1.73m2); Glucose 97 mg/dL (74-106); Potassium 4.7 mmol/L (3.5-5.1); Sodium 141 mmol/L (136-145)
== END 2023-05-20 15:01 | disposition home or self-care (01) ==
LOC: NCHCN 15:00
PROVIDERS: PCP Family Medicine; Visit Provider Family Medicine
DX: R17 Unspecified jaundice (principal); R30.0 Dysuria
CPT/HCPCS: 80053; 87077; 87086; 87186

== ENCOUNTER 2023-08-29 01:07 | Outpatient (RCR) | payer BC, SELFPAY ==
[2022-08-19 00:10] VITALS: BP 130/84; PULSE 75; RESP 17; TEMP 36.5
[2023-08-29] MEDS: Acetaminophen 325 MG TAB 650 MG PO (08:36)
[2023-08-29] MEDS: methylPREDNISolone SUCC 125 MG VIAL IV (08:36)
[2023-08-29] MEDS: diphenhydrAMINE 50 MG/ML VIAL IVP (08:37)
[2023-08-29] MEDS: Normal Saline Flush 10 ML SYR IVP (08:37)
[2023-08-29 08:45] VITALS: BP 130/76; PULSE 87; RESP 16; TEMP 36.7; O2SAT 96
[2023-08-29 09:00] LABS: Abs Immature Grans 0.06 10^3/uL (0.0-0.06); Absolute Eosinophil Count 0.12 10^3/uL (0.0-0.7); Absolute Neutrophil Count 11.28 10^3/uL (1.2-6.7); Basophils % 0.4 %; Eosinophils % 0.9 %; HCT 47.7 % (40.0-50.0); HGB 16.9 g/dL (13.5-17.5); Immature Grans % 0.4 %; Lymphocytes % 10.1 %; MCH 30.9 pg (27.0-33.0); MCHC 35.4 % (32.0-36.0); MCV 87 fL (80-95); MPV 10.2 fL (8.0-11.0); Monocytes % 6.5 %; Neutrophils % 81.7 %; Platelet Count 307 10^3/uL (130-400); RBC 5.47 10^6/uL (4.36-5.78); RDW 12.1 % (11.8-14.1); RDW-SD 38.7 fL; WBC 13.81 10^3/uL (4.4-10.8)
[2023-08-29] MEDS: OCRELIZUMAB 600 MG in Normal Saline 500 ML 100 MG IVPB (09:00)
[2023-08-29 09:01] LABS: Absolute Basophil Count 0.06 10^3/uL (0.0-0.2); Absolute Lymphocyte Count 1.39 10^3/uL (1.2-3.4)
[2023-08-29 09:20] VITALS: BP 99/67; PULSE 86; RESP 16; TEMP 37.2; O2SAT 98
[2023-08-29 09:32] LABS: ALT 31 U/L (16-63); AST 10 U/L (15-37); Albumin 3.8 g/dL (3.4-5.0); Alkaline Phosphatase 79 U/L (46-116); Anion Gap 8.9 mmol/L (3-11); BUN 23 mg/dL (7-18); Bilirubin, Total 1.3 mg/dL (0.2-1.0); CO2 29.1 mmol/L (21.0-32.0); CREATININE 0.9 mg/dL (0.70-1.30); Calcium 9.1 mg/dL (8.5-10.1); Chloride 102 mmol/L (98-107); Estimated GFR 101.49 (mL/min/1.73m2); Glucose 128 mg/dL (74-106); Potassium 4.2 mmol/L (3.5-5.1); Sodium 140 mmol/L (136-145); Total Protein 7.3 g/dL (6.4-8.2)
[2023-08-29 09:55] VITALS: BP 93/62; PULSE 66; RESP 16; TEMP 37; O2SAT 98
[2023-08-29 10:25] VITALS: BP 111/68; PULSE 95; RESP 16; TEMP 36.6; O2SAT 96
[2023-08-29 11:00] VITALS: BP 90/52; PULSE 89; RESP 18; TEMP 37.3; O2SAT 96
[2023-08-29 11:30] VITALS: BP 106/78; PULSE 94; RESP 18; TEMP 36.6; O2SAT 95
[2023-09-01 08:50] LABS: IgA 240 mg/dL (85-499); IgG 519 mg/dL (610-1616); IgM 110 mg/dL (35-242)
== END 2023-09-19 23:59 | disposition home or self-care (01) ==
LOC: INF 01:07
PROVIDERS: PCP Family Medicine; Visit Provider Psychiatry & Neurology Neurology
DX: G35 Multiple sclerosis (principal)
CPT/HCPCS: 36415; 80053; 82306; 82784; 96365; 96366; 85025; J1200; J2350; J2919

== ENCOUNTER 2023-10-21 12:53 | Day surgery (SDC) | payer BC, SELFPAY ==
[2023-10-21] VITALS (28 sets, daily range): BP systolic 116–178; BP diastolic 58–101; PULSE 66–87; RESP 11–30; TEMP 36–37.2; O2SAT 92–96; BMI 23.0
--- NOTE | 2023-10-21 10:54 | W.PM.DSUDISC ---
Date of service: 10/21/23 Time of Service: 10:58 Discharge Plan Disposition Patient Disposition: Home Condition: Good Discharge Details Reason For Visit: Right carpal and cubital tunnel syndromes Attending Provider: Jordan Sosa Primary Care Provider: Mandeep Morgan Home Meds and New Rx's Prescriptions: New hydrocodone-acetaminophen 5-325 mg tablet 1 tab PO Q6H PRN (Reason: severe pain) Qty: 6 0RF Rx Instructions: Take one tablet up to every 6 hours as needed for severe postoperative pain Continued baclofen 25 mg/5 mL (5 mg/mL) suspension 10 mg PO BID 90 Days Qty: 360 3RF pantoprazole 40 mg tablet,delayed release (DR/EC) 40 mg PO DAILY trazodone 100 mg tablet 100 mg PO DAILY methadone 10 mg tablet 10 mg PO TID Patient Comments: TAKE 2 TABS. BY MOUTH 3 TIMES A DAY AT 6AM 12PM AND 6PM FOR CHRONIC PAIN citalopram 40 mg tablet 40 mg PO DAILY Hold Instructions: Pt Stopped/Never Started amitriptyline 50 mg tablet 50 mg PO QHS Hold Instructions: Pt Stopped/Never Started clonidine HCl 0.1 mg tablet 0.1 mg PO BID Hold Instructions: Changed by Provider cyproheptadine 4 mg tablet 16 mg PO QHS Hold Instructions: Pt Stopped/Never Started fluconazole 100 mg tablet 100 mg PO QHS Hold Instructions: Pt Stopped/Never Started gabapentin 800 mg tablet 800 mg PO TID Hold Instructions: Changed by Provider prazosin [Minipress] 2 mg capsule 2 mg PO QHS Hold Instructions: Pt Stopped/Never Started quetiapine [Seroquel] 200 mg tablet 200 mg PO DAILY Hold Instructions: Changed by Provider sucralfate [Carafate] 1 gram tablet 1 g PO TID Hold Instructions: Changed by Provider lamotrigine 100 mg tablet,disintegrating 100 mg PO DAILY acetaminophen 500 mg tablet 1,000 mg PO Q8H PRN (Reason: pain) Qty: 90 3RF ibuprofen 600 mg tablet 600 mg PO TID PRNQty: 90 3RF Hold Instructions: Pt Stopped/Never Started ondansetron 4 mg tablet,disintegrating 4 mg PO DAILY PRN Patient Comments: DISSOLVE ONE TABLET ON THE TONGUE EVERY 8 HOURS NEEDED FOR NAUSEA AND VOMITING Discharge Instructions Additional Instructions: Cubital Tunnel Decompression Discharge Instructions Activity: You should stay in the sling for the first 2 weeks. You may come out of the sling for gentle motion and hygiene but should largely remain in the sling to allow the incision site to heal. Gentle motion of the elbow, hand, wrist, and fingers is okay and encouraged after the first few days, but no repetitive activites nor heavy lifting. You may apply ice. Medications: - You should take Tylenol and Ibuprofen around the clock. - You have been prescribed Hydrocodone for breakthrough pain. Dressings: - The initial surgical dressing should stay in place for 3 days. It may then be removed and kept clean and dry. You should cover with a light gauze dressing. - You may shower after 3 days and get the wound wet. Follow-up: 10 days Stand Alone Forms: Sheila Ayers Equipment/Supplies: Sling Activity:: Elevate Remove Dressings/Wound Care:: 72 hours Shower/Bathe:: 72 hours Diet:: As Tolerated Discharge Orders Discharge Orders: Discharge Order (Routine); Ordered 10/21/23 Ordered By: Jennifer Naylor
--- NOTE | 2023-10-21 13:45 | DI.RAD_ITS ---
Exam(s) XR WRIST RT LIMITED EXAM: XR WRIST RT LIMITED CLINICAL HISTORY: Right carpal tunnel syndrome. TECHNIQUE: 2D digital imaging was performed of the right wrist. Two views were obtained. PA and la teral views were obtained. COMPARISON: No exams were available for comparison FINDINGS: BONES: No acute fracture is present. No bony destructive lesion is seen. JOINTS: The carpal bones are normally aligned. SOFT TISSUE: Normal. IMPRESSION: Unremarkable radiographs of the right wrist. DATA REPOSITORY: RADIATION DOSE DELIVERED:
[2023-10-21] MEDS: Lactated Ringers 1,000 ML 80 ML IV (13:53)
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
[2023-10-21] MEDS: ceFAZolin 2 GM/50 ML BAG IVPB (14:33)
[2023-10-21] MEDS: Bupivacaine 0.25% Pres-Free W/EPI 30 ML VIAL (14:56)
--- NOTE | 2023-10-21 16:51 | W.ANESPOSTOP ---
Postoperative Evaluation Date, Time and Location Date Performed: 10/21/23 Time Performed: 16:52 Patient Location: Day Surgery Unit Vital Signs Most Recent Imported Vital Signs: Most Recent Vital Signs Temp Pulse Resp BP Pulse Ox 37.2 C 78 30 H 170/100 H 94 10/21/23 16:10 10/21/23 16:06 10/21/23 16:06 10/21/23 16:06 10/21/23 16:01 Pain Score Most Recent Pain Score: Most Recent Pain Score Pain Level 3 10/21/23 16:10 Assessment Mental Status: Awake (Alert & Oriented to Patient Baseline) Airway and Respiratory Function: Patent airway with normal (patient baseline) respiratory exam Cardiovascular Function: Hemodynamically Stable Hydration Status: Adequately Hydrated Nausea & Vomiting: No Nausea or Vomiting Pain: Pain is tolerable per patient Peripheral Nerve Block: Patient did not receive a nerve block Postoperative Comments:: Dr. Sosa aware of urinary issues.
--- NOTE | 2023-10-21 20:49 | ROE_ITS ---
Date of service: 10/21/23 Time of Service: 14:30 Operative Note Operative Note DATE OF PROCEDURE: 10/21/23 PRE-OP DIAGNOSIS: Right Carpal Tunnel and Right Cubital Tunnel Syndrome POST-OP DIAGNOSIS: same PROCEDURE: Right Endoscopic Carpal Tunnel Release and Right Cubital Tunnel Decompression SURGEON: Jordan Sosa ANESTHESIA TYPE: General LMA/ETT Refer to Anesthesia Record ESTIMATED BLOOD LOSS: 0 PATHOLOGY: none sent TOURNIQUET TIME: 15 COMPLICATIONS: None Patient was transported to: PACU Patient's condition: stable Indications: Anil is a 52 year old male who has had symptoms of carpal and cubital tunnel syndrome, cubital tunnel being the most symptomatic. Nonoperative treatment options had been trialed. Nerve conduction studies identified the carpal and cubital tunnel as the point of compression. Given failure of nonoperative treatments and persistent symptoms, I offered operative intervention. I revi ewed the technical details of a carpal tunnel release and cubital tunnel decompression with possible anterior subcutaneous transposition. I reviewed the risk of the procedure to include bleeding, infection, pain, stiffness, nerve instability, damage to superficial nerves, persistent symptoms, and incomplete release. Despite these risks, the patient elected to proceed. Findings: The carpal tunnel was release with a standard endoscopic technique without difficulty and excellent visualization. There was a tightened cubital tunnel. There was a bulky anconeus epitrochlearis which was compressing the nerve. The nerve was also tigthly compressed in the fascia of FCU. The ulnar nerve was release from the first motor branch distally through the [place] proximally. Procedure Description: Anil was greeted in the preoperative holding area where the correct side was identified and marked. The consent was reviewed with the patient and signed. The history and physical was updated. All questions were answered. Anil was taken back to the operating room. The patient was placed into the supine position on the operating room table with the right arm on an arm board. A nonsterile tourniquet was placed high onto the arm, into the axilla. All bony prominences were well padded. Prophylactic antibiotics in the form of Cefazolin were administered. The right arm was then prepped with Chloraprep and draped in a standard fashion with stockinette and extremity drape. A timeout to confirm correct identity, side and site, procedure, allergies, anesthesia, and medical concerns was performed. The surgical site was marked in the volar wrist creases in line with the radial border of the fourth ray. This area was anesthetized with approximately 6cc of 1% Lidocaine with Epinephrine. The surgical site about the medial elbow was drawn on the skin just posterior to the medial epicondyle borders. The planned surgical field was anesthetized with 1% Lidocaine with Epinephrine. The limb was then exsanguinated with an Esmarch. Starting with the carpal tunnel, the skin was incised with a 15 blade, approximately 1cm. The skin only was cut and the deeper tissue was dissected bluntly with a tenotomy scissor, avoiding passing nerve and venous structures. The fascia was penetrated and opened bluntly. A two-prong skin hook was placed under this proximal fascial edge. A series of hamate finders were used to identify and dilate the carpal tunnel. Synovial elevator was used to free synovial attachments to the underside of the transverse carpal ligament. My thumb was kept in the palm to benny the distal extent of the carpal tunnel and correctly position the hand. The [employer] endoscope was inserted without difficulty and without resistance. Excellent visualization showed horizontally running fibers of the transverse carpal ligament (TCL). The distal extent of the TCL was visualized and the end of the scope palpated with the thumb. The blade was elevated and withdrawn from distal to proximal. The TCL was split into two flaps. The endoscope was reinserted to confirm complete release and any remnant ligament was incised. The scope was withdrawn and the proximal aspect of the carpal tunnel was grossly inspected and appeared release with the median nerve visible. The antebrachial fascia at the level of the wrist was then freed from the overlying skin and then the underlying median nerve with blunt dissection. This was transected longitudinally for about 3cm proximal to the wrist incision. The wound was then irrigated with easy flow of irrigant distally and proximally. The incision was closed with a single 4-0 Nylon suture. . Attention was then turned to the cubital tunnel release. The skin of the medial elbow was incised only with the elbow in some flexion and on a bump. The deep tissue and subcutaneous fat was dissected with a tenotomy scissors trying to protect any branches of the medial antebrachial cutaneous nerve. Any branches that were identified were retracted out of the way. The ulnar nerve was palpated and identified. There was muscle overlying this area extending from the medial epicondyle over towards the ulna. This was identified as a anconeus epitrochlear us. It was transected overlying the ulnar nerve. A small window into the cubital tunnel, deep to this muscle, was created and the nerve was able to be palpated with the [place]. A Metzenbaum scissor was then used to open up the sheath starting with Thurston's ligament. I then worked distal over the ulnar nerve releasing any constraints against the nerve all the way to the fascia of the FCU muscle belly. This muscle belly was bluntly all the way down to the first motor branch of the ulnar nerve and the overlying fascia was incised. Likewise starting there at the medial epicondyle, I proceeded to work proximally to release any constraints over the ulnar nerve. This was taken all the way to the [place] of [place]. The medial intermuscular septum was also palpated and any sharp edges against the ulnar nerve were resected and released. After fully releasing the nerve it was inspected visually. I was also able to palpate the nerve fully and reach one finger up into the proximal and distal aspects to make sure there were no constraints against the nerve. A freer elevator was also used to slide easily against the ulnar nerve without any points of constriction. The arm was then taken through range of motion. The ulnar nerve did not sublux/dislocate out of its groove behind the medial epicondyle. Therefore, no transposition was performed. The tourniquet was then deflated. Any areas of bleeding were cauterized with bipolar electrocautery. The wound was thoroughly irrigated. The deep tissue was closed with a 3-0 Vicryl. The skin was closed with a 4-0 nylon. The wounds were dressed with Xeroform, 4 x 4's, ABD, Kerlix and an Duane wrap. Anil was placed into a sling. Anil was transferred back to the PACU in a stable condition.
== END 2023-10-21 17:10 | disposition home or self-care (01) ==
LOC: SUR 12:54
PROVIDERS: PCP Student in an Organized Health Care Education/Training Program; Visit Provider Student in an Organized Health Care Education/Training Program
PROC: 01N54ZZ Release Median Nerve, Percutaneous Endoscopic Approach (ICD-10-PCS; CPT 29848; principal; 2023-10-21 13:45)
PROC: (CPT 64718; 2023-10-21 13:45)
DX: G56.21 Lesion of ulnar nerve, right upper limb (principal); G56.01 Carpal tunnel syndrome, right upper limb
CPT/HCPCS: 64718; 29848; 73100; J0131; J0690; J1100; J1885; J2001; J2004; J2371; J2405; J2704

== ENCOUNTER 2023-11-02 20:52 | Inpatient (IN) | payer BC, SELFPAY ==
[2023-11-02] VITALS (21 sets, daily range): BP systolic 108–129; BP diastolic 62–74; PULSE 84–98; RESP 11–22; TEMP 37.2; O2SAT 91–96
--- NOTE | 2023-11-02 21:00 | RT.EKG_ITS ---
APPROVED REPORT Exam: Resting ECG Reason for Exam: weakness Patient Location: E HR:96 bpm ECG Measurements Heart Rate 96 AXIS NE 169 P 18 QRSd 85 QRS 23 QT 327 T 23 QTc 414 Conclusion Sinus rhythm...normal P axis, V-rate 60- 99 Probable anteroseptal infarct, acute...ST>0.15mV, T upright, V1-V2
--- NOTE | 2023-11-02 21:04 | DI.RAD_ITS ---
Exam(s) XR CHEST 1V IN DI DEPT EXAM: XR CHEST 1V IN DI DEPT CLINICAL HISTORY: weakness. TECHNIQUE: 2D digital imaging was performed. COMPARISON: Prior chest x-ray 11/02/2023 FINDINGS: Single AP portable view. Heart size is upper normal. The mediastinum is not widened. Lungs are clear. No infiltrates nor obvious pleural effusions. IMPRESSION: No acute pulmonary findings on this single AP portable view of the chest. DATA REPOSITORY: RADIATION DOSE DELIVERED:
--- NOTE | 2023-11-02 21:15 | DI.CT_ITS ---
Exam(s) CT ABDOMEN PELVIS W EXAM: CT ABDOMEN PELVIS W CLINICAL HISTORY: constipation, reddened testicle r/o reymundo's. TECHNIQUE: Imaging Protocol: Axial computed tomography images with coronal and sagittal reformatted images were created and reviewed CONTRAST MATERIAL: Intravenous: Omnipaque-350 100cc Oral: None COMPARISON: No exams were available for comparison FINDINGS: VISUALIZED LUNG BASES: There is mild subpleural infiltrate in the posterior basal segment of the righ t lower lobe, not associated with the pleural effusion and there is no overlying rib destruction. Le sser amount of increased subpleural markings are noted at similar location in the opposite-left lung base. Also without pleural effusion.. ABDOMEN: There is respiratory motion artifact. There is no obvious ascites. GI: No evidence of small-bowel obstruction, free air, ascites, nor abscess. There is abundant fecal material noted in the colon consistent with element of constipation. Rectum is fecal filled and dist ended to 7 cm diameter LIVER: There are no focal hepatic lesions evident. No dilated intrahepatic ducts. GALLBLADDER/BILIARY: Subtle densities in the gallbladder lumen either represent gallstones (which wer e not evident on prior CT scan of March 2023) or just related to motion artifact here. CBD diamet er is upper normal. PANCREAS: No evidence of pancreatic mass nor dilatation of the pancreatic duct. SPLEEN: Spleen is not enlarged. No obvious intrasplenic lesions. Splenic and portal veins are paten t. ADRENALS: There are no significant adrenal masses. KIDNEYS:No cysts evident. No solid renal masses. No calculi nor hydronephrosis.. ABDOMINAL AORTA: Abdominal aorta is not enlarged. Retroaortic left renal vein incidentally noted, se en approximately 5 percent of the general population LYMPH NODES:There is no retroperitoneal nor paraaortic adenopathy. ABDOMINAL WALL: No evidence of significant anterior abdominal wall nor inguinal hernia. GI: There is no evidence of bowel obstruction, free air, nor abscess. PELVIS: GI: Appendix is seen and appears unremarkable.No evidence of sigmoid diverticulitis. LYMPH NODES: There is no intrapelvic nor inguinal adenopathy. REPRODUCTIVE: Prostate size normal. There is a right-sided hydrocele and there appears to be hyperem ia of the right testicle and epididymis. URINARY BLADDER: There is a Starr catheter in the urinary bladder. Bladder otherwise appears unremar kable. OSSEOUS: No fractures and no significant osseous lesions. IMPRESSION: 1. Abundant fecal material noted throughout the colon and the rectum diameter is 7 cm. Probable cons tipation. 2. Right-sided scrotal hydrocele and there also appears to be hyperemia of the right testicle and epi didymis. Suspicious for epididymal orchitis. 3. Recommend follow-up scrotal ultrasound. RADIATION DOSE DELIVERED: 1,252.86mGy.cm Total DLP DATA REPOSITORY: All CT scans at this facility are submitted to the National Radiology Data Registry (NRDR) Dose Index Registry (DIR) with the [employer] (A[employer]). RADIATION OPTIMIZATION: All CT scans at this facility use at least one of these dose optimization te chniques: automated exposure control; mA and/or kV adjustment per patient size (includes targeted exa ms where dose is matched to clinical indication); or iterative reconstruction.
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
[2023-11-02] MEDS: Omnipaque 350 MG/ML 100 ML BTL IJ (21:31)
[2023-11-02] MEDS: Omnipaque 350 MG/ML 50 ML BTL IJ (21:33)
[2023-11-02] MEDS: Normal Saline - Diluent 50 ML VIAL IJ (21:33)
[2023-11-02 21:56] LABS: Lactate 1.3 mmol/L (0.6-1.4)
[2023-11-02 21:59] LABS: HCT 42.4 % (40.0-50.0); HGB 15.5 g/dL (13.5-17.5); MCH 31.3 pg (27.0-33.0); MCHC 36.6 % (32.0-36.0); MCV 86 fL (80-95); MPV 9.8 fL (8.0-11.0); Platelet Count 323 10^3/uL (130-400); RBC 4.96 10^6/uL (4.36-5.78); RDW 12.5 % (11.8-14.1); RDW-SD 38.6 fL
[2023-11-02 22:12] LABS: Absolute Lymphocyte Count 1.19 10^3/uL (1.2-3.4); Absolute Monocyte Count 1.78 10^3/uL (0.1-0.8); Absolute Neutrophil Count 26.77 10^3/uL (1.2-6.7); Atypical Lymphocytes % 1 %
[2023-11-02 22:13] LABS: Diff Comment Manual Differential; RBC Morphology Normal
[2023-11-02 22:15] LABS: Bilirubin Small (Negative); Blood Trace-lysed (Negative); Clarity Clear (Clear); Glucose Negative (Negative); Ketones Negative (Negative); Leukocyte Esterase Small (Negative); Nitrite Positive (Negative); Specific Gravity >= 1.030 (1.005-1.025); pH 5.5 (5-8)
[2023-11-02 22:16] LABS: WBC 29.74 10^3/uL (4.4-10.8)
[2023-11-02 22:21] LABS: ALT 32 U/L (16-63); AST 21 U/L (15-37); Albumin 3.2 g/dL (3.4-5.0); Alkaline Phosphatase 76 U/L (46-116); Anion Gap 9.2 mmol/L (3-11); BUN 17 mg/dL (7-18); Bilirubin, Total 2.68 mg/dL (0.2-1.0); CO2 26.8 mmol/L (21.0-32.0); CREATININE 0.9 mg/dL (0.70-1.30); Chloride 98 mmol/L (98-107); Estimated GFR 101.49 (mL/min/1.73m2); Glucose 147 mg/dL (74-106); Potassium 3.6 mmol/L (3.5-5.1); Sodium 134 mmol/L (136-145); Total Protein 6.8 g/dL (6.4-8.2); Troponin I < 50 ng/L (< or =60)
[2023-11-02 22:23] LABS: Bacteria Many HPF (Negative); Epithelial Cells Rare HPF (Negative); RBC 0-2 HPF (0-2); WBC 20-50 HPF (0-5)
[2023-11-02 22:24] LABS: C & S Indicated? Yes; Casts Negative LPF (Negative); Crystals Negative HPF (Negative); Mucus Negative (Negative)
--- NOTE | 2023-11-02 22:35 | DI.VRAD_ITS ---
PROCEDURE INFORMATION: Exam: XR Chest Exam date and time: 11/02/2023 10:23 PM Age: 52 years old Clinical indication: Other: Weakness TECHNIQUE: Imaging protocol: Radiologic exam of the chest. Views: 1 view. COMPARISON: CT ABDOMEN PELVIS W 11/02/2023 10:08 PM FINDINGS: Lungs: Normal. Pleural spaces: Unremarkable. No pleural effusion. No pneumothorax. Heart/Mediastinum: Normal. Bones/joints: Old, healed right posterolateral 6th rib fracture. Old, healed left mid clavicle fracture. IMPRESSION: No acute cardiopulmonary abnormality. Dictated and Authenticated by: Nish Millard MD. Ordering:NANCY Gavin MD
[2023-11-02 22:36] LABS: COVID-19 PCR Negative (Negative); Influenza A PCR Negative (Negative); Influenza B PCR Negative (Negative); RSV PCR Negative (Negative)
[2023-11-02 22:37] LABS: Source Nasopharynx
--- NOTE | 2023-11-02 22:39 | DI.VRAD_ITS ---
PROCEDURE INFORMATION: Exam: CT Abdomen And Pelvis With Contrast Exam date and time: 11/02/2023 10:08 PM Age: 52 years old Clinical indication: Patient HX: Constipation, reddened swollen testicle, R/O reymundo's TECHNIQUE: Imaging protocol: Computed tomography of the abdomen and pelvis with contrast. COMPARISON: CT ABDOMEN PELVIS W 03/27/2023 8:58 PM FINDINGS: Lungs: Minimal bibasilar atelectasis or scarring. Diaphragm: Small-sized hiatal hernia. Liver: Mild hepatomegaly. Gallbladder and biliary ducts: Normal. Pancreas: Normal. Spleen: Normal. Adrenal glands: Normal. No mass. Kidneys and ureters: Normal. Stomach and bowel: Moderate amount of stool throughout the colon, compatible with constipation. No obstruction. Appendix: No evidence of appendicitis. Intraperitoneal space: Unremarkable. No free air. No significant fluid collection. Vasculature: Atherosclerotic disease of the abdominal aorta and iliac arteries. Lymph nodes: Unremarkable. No enlarged lymph nodes. Urinary bladder: Urinary bladder partially decompressed by Starr catheter. Reproductive: Enlarged, hypervascular appearing right epididymis and right testicle, with small right hydrocele, possibly epididymal orchitis. Bones/joints: No acute abnormality. Soft tissues: No soft tissue gas to suggest soft tissue infection. IMPRESSION: 1. Moderate amount of stool throughout the colon, compatible with constipation. No obstruction. 2. Enlarged, hypervascular appearing right epididymis and right testicle, with small right hydrocele, possibly epididymal orchitis. Evaluation limited by CT. Consider ultrasound for more definitive evaluation. Dictated and Authenticated by: Nish Millard MD. Ordering:NANCY Gavin MD
[2023-11-02] MEDS: Lactated Ringers 500 ML IV (23:06)
[2023-11-02] MEDS: PIPERACILLIN/TAZO 4.5 GM in Normal Saline 100 ML IVPB (23:07)
[2023-11-02] MEDS: HYDROmorphone 2 MG/ML SYR 1 MG IVP (23:12)
[2023-11-02] MEDS: HYDROcodone 5/Acetaminophen 325 TAB PO (23:16)
[2023-11-03] VITALS (11 sets, daily range): BP systolic 122–133; BP diastolic 75–87; PULSE 84–93; RESP 10–19; TEMP 36.1–36.9; O2SAT 91–97
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
--- NOTE | 2023-11-03 02:04 | W.PC.ACHO ---
Registration Status: Primary Language: Preferred Language: ED Information & Data Chief Complaint Urinary 11/02/23 21:20 Triage Note patient was brought to the 11/02/23 20:54 ER by EMS for history urinary tract infection. Patient has a history of MS, state he is generally able to ambulate but since today he has not been able to. State he generally does self catheterization at home, but today he had only straight cath once or twice. 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) Hx of falling TBI (traumatic brain injury) Hx of esophagitis Recurrent UTI Obesity PTSD (post-traumatic stress disorder) Anemia Gastroesophageal reflux disease Other chronic pain Depression Anxiety Alcohol abuse Drug abuse (Last Reviewed 11/03/23 @ 00:16 by Dylan Hammer MD) History of ear surgery History of esophagogastroduodenoscopy (EGD) History of colonoscopy (~06/14/19) S/P left knee arthroscopy Umbilical hernia Most Recent Vital Signs Temperature 37.2 C 11/02/23 21:31 Temperature Source Tympanic 11/02/23 20:54 Pulse 89 11/03/23 01:47 Pulse 88 11/03/23 00:52 Respiratory Rate 12 11/03/23 01:47 Respiratory Effort Normal, Non-Labored 11/03/23 01:47 Respiratory Depth Normal 11/03/23 01:47 Respiratory Pattern Normal 11/03/23 01:47 Blood Pressure 123/75 11/03/23 01:47 Blood Pressure Mean 90 11/03/23 00:52 Pulse Oximetry 95 11/03/23 01:47 Oxygen Delivery Method Room Air 11/03/23 01:47 Oxygen Flow Rate 0 11/03/23 01:47 Pain Level 5 11/02/23 22:08 Comment right testicle, swollen, red. 11/02/23 22:08 Allergies fentanyl Adverse Reaction (Mild, Verified 11/02/23 21:01) vomiting morphine Adverse Reaction (Mild, Verified 11/02/23 21:01) vomits Active Medications Generic Name Dose Route Start Last Admin Trade Name Freq PRN Reason Stop Dose Admin Iohexol 100 ml 11/02/23 21:45 11/02/23 21:31 Omnipaque 350 Mg/Ml 100 Ml Btl IJ 12/02/23 23:59 100 ml DIRECTED YONATHAN Administration Iohexol 50 ml 11/02/23 22:00 11/02/23 21:33 Omnipaque 350 Mg/Ml 50 Ml Btl IJ 12/02/23 23:59 20 ml DIRECTED YONATHAN Administration Sodium Chloride 50 ml 11/02/23 21:45 11/02/23 21:33 Normal Saline - Diluent 50 Ml Vial IJ 50 ml .FOR DI USE YONATHAN Administration IV IV Catheter Type [Left Forearm Saline Lock ] IV Catheter Gauge [Left 18 Forearm] Diet Orders Category Date Time Status Regular/Normal [DIET] Nutrition 11/03/23 Breakfast Active Diagnostics 11/03/23 11/02/23 11/02/23 Range/Units 00:03 22:07 21:46 WBC (4.4-10.8) 10^3/uL RBC (4.36-5.78) 10^6/uL Hgb (13.5-17.5) g/dL Hct (40.0-50.0) % MCV (80-95) fL MCH (27.0-33.0) pg MCHC (32.0-36.0) % RDW (11.8-14.1) % Plt Count (130-400) 10^3/uL MPV (8.0-11.0) fL Immature Gran % % Neutrophils % % Lymphocytes % % Atypical Lymphs % % Monocytes % % Eosinophils % % Basophils % % Nucleated RBC % (0.0-0.3) % Absolute Neutrophils (1.2-6.7) 10^3/uL Absolute Lymphocytes (1.2-3.4) 10^3/uL Absolute Monocytes (0.1-0.8) 10^3/uL Absolute Eosinophils (0.0-0.7) 10^3/uL Absolute Basophils (0.0-0.2) 10^3/uL RBC Morphology VBG Lactate (0.6-1.4) mmol/L Sodium (136-145) mmol/L Potassium (3.5-5.1) mmol/L Chloride (98-107) mmol/L Carbon Dioxide (21.0-32.0) mmol/L Anion Gap (3-11) mmol/L BUN (7-18) mg/dL Creatinine (0.70-1.30) mg/dL Est GFR (CKD-EPI 2020) (mL/min/1.73m2) Glucose (74-106) mg/dL Calcium (8.5-10.1) mg/dL Total Bilirubin (0.2-1.0) mg/dL AST (15-37) U/L ALT (16-63) U/L Alkaline Phosphatase (46-116) U/L Troponin I Cancelled (< or =60) ng/L Total Protein (6.4-8.2) g/dL Albumin (3.4-5.0) g/dL Urine Color Yellow (Yellow) Urine Clarity Clear (Clear) Urine pH 5.5 (5-8) Ur Specific [place] >= 1.030 H (1.005-1.025) Urine Protein 30 H (Neg-Trace) mg/dL Urine Ketones Negative (Negative) mg/dL Urine Blood Trace-lysed H (Negative) Urine Nitrite Positive H (Negative) Urine Bilirubin Small H (Negative) Urine Urobilinogen 4.0 H (Up to 0.2) mg/dL Ur Leukocyte Esterase Small H (Negative) Urine RBC 0-2 (0-2) HPF Urine WBC 20-50 H (0-5) HPF Ur Epithelial Cells Rare (Negative) HPF Urine Crystals Negative (Negative) HPF Urine Bacteria Many (Negative) HPF Urine Casts Negative (Negative) LPF Urine Mucus Negative (Negative) Ur Culture Indicated? Yes Urine Glucose Negative (Negative) mg/dL COVID-19 Source Nasopharynx SARS-CoV-2 (PCR) Negative (Negative) Influenza Type A (PCR) Negative (Negative) Influenza Type B (PCR) Negative (Negative) RSV (PCR) Negative (Negative) 11/02/23 Range/Units 21:45 WBC 29.74 H* (4.4-10.8) 10^3/uL RBC 4.96 (4.36-5.78) 10^6/uL Hgb 15.5 (13.5-17.5) g/dL Hct 42.4 (40.0-50.0) % MCV 86 (80-95) fL MCH 31.3 (27.0-33.0) pg MCHC 36.6 H (32.0-36.0) % RDW 12.5 (11.8-14.1) % Plt Count 323 (130-400) 10^3/uL MPV 9.8 (8.0-11.0) fL Immature Gran % 0.0 % Neutrophils % 90.0 % Lymphocytes % 3.0 % Atypical Lymphs % 1 % Monocytes % 6.0 % Eosinophils % 0.0 % Basophils % 0.0 % Nucleated RBC % 0.0 (0.0-0.3) % Absolute Neutrophils 26.77 H (1.2-6.7) 10^3/uL Absolute Lymphocytes 1.19 L (1.2-3.4) 10^3/uL Absolute Monocytes 1.78 H (0.1-0.8) 10^3/uL Absolute Eosinophils 0.00 (0.0-0.7) 10^3/uL Absolute Basophils 0.00 (0.0-0.2) 10^3/uL RBC Morphology Normal VBG Lactate 1.3 (0.6-1.4) mmol/L Sodium 134 L (136-145) mmol/L Potassium 3.6 (3.5-5.1) mmol/L Chloride 98 (98-107) mmol/L Carbon Dioxide 26.8 (21.0-32.0) mmol/L Anion Gap 9.2 (3-11) mmol/L BUN 17 (7-18) mg/dL Creatinine 0.9 (0.70-1.30) mg/dL Est GFR (CKD-EPI 2020) 101.49 (mL/min/1.73m2) Glucose 147 H (74-106) mg/dL Calcium 9.0 (8.5-10.1) mg/dL Total Bilirubin 2.68 H (0.2-1.0) mg/dL AST 21 (15-37) U/L ALT 32 (16-63) U/L Alkaline Phosphatase 76 (46-116) U/L Troponin I < 50 (< or =60) ng/L Total Protein 6.8 (6.4-8.2) g/dL Albumin 3.2 L (3.4-5.0) g/dL Urine Color (Yellow) Urine Clarity (Clear) Urine pH (5-8) Ur Specific [place] (1.005-1.025) Urine Protein (Neg-Trace) mg/dL Urine Ketones (Negative) mg/dL Urine Blood (Negative) Urine Nitrite (Negative) Urine Bilirubin (Negative) Urine Urobilinogen (Up to 0.2) mg/dL Ur Leukocyte Esterase (Negative) Urine RBC (0-2) HPF Urine WBC (0-5) HPF Ur Epithelial Cells (Negative) HPF Urine Crystals (Negative) HPF Urine Bacteria (Negative) HPF Urine Casts (Negative) LPF Urine Mucus (Negative) Ur Culture Indicated? Urine Glucose (Negative) mg/dL COVID-19 Source SARS-CoV-2 (PCR) (Negative) Influenza Type A (PCR) (Negative) Influenza Type B (PCR) (Negative) RSV (PCR) (Negative) 11/02/23 22:07 Urine Culture - Pending Urine - Reflex from Ua 11/02/23 21:46 Blood Culture - Pending Blood 11/02/23 21:45 Blood Culture - Pending Blood Intake and Output - 24 Hour Total 11/02/23 20:43 thru 11/03/23 01:47 Intake Total 600 Output Total 700 Balance -100 Weight 79.37 kg Intake: IV 600 Output: Urine/Stool Mix 700 Other: Urine Color [place] Urine Appearance Clear Stool Size Small Stool Characteristics Liquid Brown # Bowel Movements 1 Urinary Catheter Urinary Catheter Date of 11/02/23 Insertion [Uretheral (Starr)] Time of insertion [Uretheral ( 22:00 Starr)] Falls Risk Assessment History of Falls No History 11/03/23 01:47 Contributing Factors Impairments 11/03/23 01:47 Ambulatory Aids Uses ambulatory device + 11/03/23 01:47 Tubes/Lines W/no contributing factors 11/03/23 01:47 Gait Evaluation W/any additional score 11/03/23 01:47 Cognition No cognitive impairment 11/03/23 01:47 Fall Total Score 63 11/03/23 01:47 Level of Risk High Risk 11/03/23 01:47 Problems (Last Reviewed 11/03/23 @ 00:16 by Dylan Hammer MD) Acute epididymo-orchitis (Acute) v v v v v v v v v Sending and/or Receiving Nurses: Please use comment section below to note any information pertinent to the patient hand-off not included above. Information / Comments: Patient with hx of MS, self caths and had elbow surgery 3 days ago presents to ED with weakness, fever and c/o right testicular pain. Elevated WBC count, patient noted to be somnolent, lethargic. VSS, CT completed and r/o torsion. Treating for UTI/infection and plan for ultrasound tomorrow. Unable to complete med rec due to patients decreased LOC and unreliable historian; attempts made to call without success. Will need to complete med rec when comes tomorrow am. Report received from: Emmett Shaw RN
[2023-11-03] MEDS: cefTRIAXone 1,000 MG in Normal Saline 50 ML 100 MG IVPB (02:22)
[2023-11-03] MEDS: Lactated Ringers 1,000 ML 80 ML IV ×2 (02:23→16:49)
[2023-11-03] MEDS: oxyCODONE 10 MG TAB PO ×2 (04:37→20:24)
--- NOTE | 2023-11-03 06:40 | NUR.NOTE ---
Nursing note: Patient expressing wanting to get dressed and leave this morning; advised of current condition and requiring IV antibiotics and further imaging/ultrasound for further diagnostics and treatment. Patient agreed to stay. Attempt made to call patients' to complete medication reconciliation this morning; phone went straight to voicemail. Did not leave a message at this time.
[2023-11-03] MEDS: Polyethylene Glycol 3350 17 GM PACKET PO ×2 (07:48→20:23)
[2023-11-03] MEDS: Citalopram 20 MG TAB 40 MG PO (07:49)
[2023-11-03] MEDS: Baclofen 10 MG TAB PO ×2 (07:49→20:24)
[2023-11-03] MEDS: Acetaminophen 500 MG TAB 1000 MG PO (07:56)
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
--- NOTE | 2023-11-03 09:45 | DI.US_ITS ---
Exam(s) US SCROTUM EXAM: US SCROTUM CLINICAL HISTORY: epididymo-orchitis TECHNIQUE: Ultrasound of the testes performed using grayscale, color, and Doppler imaging. COMPARISON: US US RENAL from 11/03/2023 FINDINGS: RIGHT HEMISCROTUM: There is a unilateral complex hydrocele on the right side which exhibits multiple septations. Right testicle exhibits normal size without evidence of intra-articular mass. No evidence of torsion . However, there is hyperemia of the right testicle and right epididymis evident. No varicocele evident LEFT HEMISCROTUM: The left testicle exhibits normal size and echo architecture with no evidence of intratesticular mass . Vascular flow is demonstrated within the left testicle, including arterial waveforms. The epididymis appears unremarkable. There are no epididymal head cysts. There is no ipsilateral hydrocele or varicocele. IMPRESSION: 1. Unilateral right-sided testicular and epididymal hyperemia consistent with infectious/inflammatory process such as epididymo-orchitis. 2. There is also a unilateral complex right-sided hydrocele. Non clear fluid as well as septations a re noted within this right-sided hydrocele.. DATA REPOSITORY:
--- NOTE | 2023-11-03 09:50 | DI.US_ITS ---
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 COMPARISON: US US ABDOMEN from 01/17/[address] ABDOMEN PELVIS W from 11/02/2023 FINDINGS: RIGHT KIDNEY: Measures 12 cm in length. No cysts evident. Normal cortical thickness and corticomedullary differenti ation .No solid masses No intrarenal calculi nor hydronephrosis. LEFT KIDNEY: Measures 11.5 cm in length. No cysts evident. Normal cortical thickness and corticomedullary differe ntiaion. No solids masses. No intrarenal calculi nor hydonephrosis. URINARY BLADDER: Contains a Starr catheter which was not clamped Prevoid volume is 25 cc (Starr was not clamped) Postvoid volume is Starr not clamped cc Therefore difficult to assess bladder for masses. Bladder wall thickness up to 4 mm. Possibly due t o under distension. Ureterovesical jets: Both not identified IMPRESSION: 1. No significant ultrasound findings in the kidneys. No hydronephrosis. 2. Starr catheter noted in the urinary bladder. Bladder only contained 25 cc urine. DATA REPOSITORY:
[2023-11-03] MEDS: cefTRIAXone 1 GM/50 ML BAG IVPB (14:00)
--- NOTE | 2023-11-03 14:30 | PHA.REVIEW2 ---
Pharmacy Admission Review Admission Clinical Review Admission Pharmacy Review: Acute epididymo-orchitis (Acute) fentanyl Adverse Reaction (Mild, Verified 11/02/23 21:01) vomiting morphine Adverse Reaction (Mild, Verified 11/02/23 21:01) vomits Resuscitation Status Full Code Height 5 ft 1 in Weight 79.37 kg Comments Comments/Follow Ups: Urine & blood cultures pending, pt does [id number] MS, 2 person assist w/walker and neurogenic bladder w/frequent UTI's, elevated WBC, Afebrile, is constipated Pharmacy Admission Review Renal Dosing Renal Dosing: BUN 17 mg/dL (7-18) 11/02/23 21:45 Creatinine 0.9 mg/dL (0.70-1.30) 11/02/23 21:45 CrCl~83.78ml/min Medications needing adjustments: Reviewed Anticoagulation Anticoagulation: Hgb 15.5 g/dL (13.5-17.5) 11/02/23 21:45 Hct 42.4 % (40.0-50.0) 11/02/23 21:45 Plt Count 323 10^3/uL (130-400) 11/02/23 21:45 Creatinine 0.9 mg/dL (0.70-1.30) 11/02/23 21:45 DVT Prophylaxis: N/A (Mobilization) Opiate Usage Evaluate Pain Scale/Pains Meds: Reviewed (Pain 9/10, scheduled Bowel meds, Oxy IR, only one dose given as of this note) Scheduled Bowel Reg ordered if on Opiates?: Yes (Moderate BM today) Relevant Labs Relevant Labs: Sodium 134 mmol/L (136-145) L 11/02/23 21:45 Potassium 3.6 mmol/L (3.5-5.1) 11/02/23 21:45 Chloride 98 mmol/L (98-107) 11/02/23 21:45 DM Control DM Control: Reviewed (HgA1c 4.8) Cardiac Review Cardiac Review: Troponin I Cancelled 11/03/23 00:03 BP, HR, EF%: Reviewed (BP 124/81, HR 84) Home Meds Home Med List reviewed: Reviewed (Baclofen @ home is an oral suspension, here he's receiving tablets, many unconfirmed meds on his home list) Pharmacy Antibiotic Review Relevant Labs: WBC 29.74 Pharmacy Antibiotic Activity: C/S review (Rocephin 1gram Q12h) Comments Comments/Follow Ups: Urine & blood cultures pending, pt does [id number] MS, 2 person assist w/walker and neurogenic bladder w/frequent UTI's, elevated WBC, Afebrile, is constipated
[2023-11-03] MEDS: Amitriptyline 10 MG TAB 50 MG PO (20:24)
[2023-11-03] MEDS: Docusate Sodium 100 MG CAP PO (20:24)
[2023-11-03] MEDS: Melatonin 3 MG TAB PO (20:24)
[2023-11-04] MEDS: cefTRIAXone 1 GM/50 ML BAG IVPB ×2 (02:18→13:49)
[2023-11-04] MEDS: Lactated Ringers 1,000 ML 80 ML IV (05:36)
[2023-11-04 07:16] LABS: Abs Immature Grans 0.05 10^3/uL (0.0-0.06); Absolute Eosinophil Count 0.04 10^3/uL (0.0-0.7); Absolute Lymphocyte Count 0.85 10^3/uL (1.2-3.4); Basophils % 0.3 %; Eosinophils % 0.3 %; HCT 39.9 % (40.0-50.0); HGB 14.5 g/dL (13.5-17.5); Immature Grans % 0.4 %; Lymphocytes % 7.3 %; MCHC 36.3 % (32.0-36.0); MCV 85 fL (80-95); MPV 10.3 fL (8.0-11.0); Monocytes % 9.4 %; Neutrophils % 82.3 %; Platelet Count 304 10^3/uL (130-400); RBC 4.68 10^6/uL (4.36-5.78); RDW 12.5 % (11.8-14.1); RDW-SD 38.2 fL; WBC 11.67 10^3/uL (4.4-10.8)
[2023-11-04 07:24] LABS: Absolute Basophil Count 0.04 10^3/uL (0.0-0.2)
[2023-11-04 07:34] VITALS: BP 127/89; PULSE 89; RESP 18; TEMP 36.8; O2SAT 98
[2023-11-04 07:37] LABS: Anion Gap 7.8 mmol/L (3-11); BUN 9 mg/dL (7-18); CO2 27.2 mmol/L (21.0-32.0); CREATININE 0.7 mg/dL (0.70-1.30); Calcium 8.7 mg/dL (8.5-10.1); Chloride 104 mmol/L (98-107); Glucose 105 mg/dL (74-106); Magnesium 2.1 mg/dL (1.8-2.4); Potassium 3.8 mmol/L (3.5-5.1); Sodium 139 mmol/L (136-145)
[2023-11-04] MEDS: Baclofen 10 MG TAB PO ×2 (07:51→19:53)
[2023-11-04] MEDS: Citalopram 20 MG TAB 40 MG PO (07:52)
[2023-11-04] MEDS: oxyCODONE 10 MG TAB PO (07:52)
[2023-11-04] MEDS: Docusate Sodium 100 MG CAP PO ×3 (07:52→19:53)
[2023-11-04] MEDS: Polyethylene Glycol 3350 17 GM PACKET PO ×2 (07:53→19:51)
--- NOTE | 2023-11-04 08:50 | CMPROGNOTE_ITS ---
Date of service: 11/04/23 Time of Service: 17:21 Care Management Progress Note Progress Note Text Progress Note Text: Anil was visiting with his Marie, who also happens to be a patient at [facility], when CM met with him. He came to her room with PT and was able to ambulate with his walker from his room to hers. Anil stated that he is feeling better and would really like to be discharged home. Per provider, he is doing better clinically. He has less pain, his vital signs are stable and he remains afebrile. CM will follow. Discharge Potential Discharge Needs: PCP F/U Appt Anticipated Barriers to Discharge: None Identified Patient/Family Education Needs: Review discharge instructions, discuss Ask Me Three Transportation: Private vehicle Plan: Anticipate Anil will be discharged home with no new services when medically cleared. He will follow up with his PCP and possibly Urology and transport with family. CM will continue to support discharge needs. SDOH(Care Management) Screening Will the Patient Participate in the Screening?: Unable to obtain
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
[2023-11-04] MEDS: Ibuprofen 800 MG TAB 400 MG PO ×2 (10:57→13:46)
[2023-11-04] MEDS: Acetaminophen 500 MG TAB 1000 MG PO ×2 (10:58→17:47)
[2023-11-04] MEDS: Enoxaparin 40 MG/0.4 ML SYR SC (10:58)
[2023-11-04] MEDS: Normal Saline Flush 10 ML SYR IVP ×3 (10:59→19:56)
[2023-11-04] MEDS: Methadone 10 MG TAB 20 MG PO ×2 (13:46→19:52)
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
[2023-11-04 15:12] VITALS: BP 143/93; PULSE 93; RESP 18; TEMP 36.8; O2SAT 96
[2023-11-04 19:49] VITALS: BP 131/81; PULSE 79; RESP 18; TEMP 36.6; O2SAT 95
[2023-11-04] MEDS: Ibuprofen 800 MG TAB PO (19:52)
[2023-11-04] MEDS: traZODone 100 MG TAB PO (19:53)
[2023-11-04 23:45] VITALS: BP 135/75; PULSE 103; RESP 19; TEMP 36.1; O2SAT 97
[2023-11-05] MEDS: oxyCODONE 10 MG TAB PO ×2 (00:05→09:03)
[2023-11-05] MEDS: cefTRIAXone 1 GM/50 ML BAG IVPB (02:39)
[2023-11-05] MEDS: Acetaminophen 500 MG TAB 1000 MG PO ×2 (02:40→08:31)
[2023-11-05] MEDS: Normal Saline Flush 10 ML SYR IVP (02:40)
[2023-11-05 03:42] VITALS: BP 126/79; PULSE 75; RESP 18; TEMP 36.6; O2SAT 96
[2023-11-05 07:34] VITALS: BP 136/81; PULSE 78; RESP 18; TEMP 36.4; O2SAT 96
[2023-11-05] MEDS: Docusate Sodium 100 MG CAP PO ×2 (08:32→14:04)
[2023-11-05] MEDS: Enoxaparin 40 MG/0.4 ML SYR SC (08:32)
[2023-11-05] MEDS: Baclofen 10 MG TAB PO (08:32)
[2023-11-05] MEDS: Polyethylene Glycol 3350 17 GM PACKET PO (08:32)
[2023-11-05] MEDS: Methadone 10 MG TAB 20 MG PO ×2 (08:32→14:04)
[2023-11-05] MEDS: Ibuprofen 800 MG TAB PO ×2 (08:32→14:04)
--- NOTE | 2023-11-05 09:00 | CMDISCH_ITS ---
Date of service: 11/05/23 Time of Service: 09:00 LACE Index Scoring Tool Questions: Length of Stay (in days): 2 Was the patient admitted via the E.D.?: Yes E.D. Visits: 1 Answers: Total Score: 6 Risk of Readmission: Low Risk Care Management Discharge Plan Reason for Hospitalization: orchitis Discharge Plan: Anil will be discharged home with new home health services for PT. He will follow up with his PCP and possibly Urology and transport with maki oneill. Patient/Family Education Needs: Review discharge instructions, discuss Ask Me Three Services Needed at Discharge: Home Health Care Services (PT) SDOH Health Related Social Needs: No Data to Display
[2023-11-05] MEDS: Cefpodoxime 200 MG TAB PO (10:48)
--- NOTE | 2023-11-05 12:11 | W.PM.PROGNOT ---
Date of Service Date of service: 11/05/23 Objective Last Vital Signs Temp 36.4 C L 11/05/23 07:34 Pulse 78 11/05/23 07:34 Resp 18 11/05/23 07:34 BP 136/81 11/05/23 07:34 Pulse Ox 96 11/05/23 07:34
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
--- NOTE | 2023-11-05 14:04 | PDOC.HHF2F_ITS ---
Home Health Referral Home Health Orders Clinical synopsis of why skilled professionals are needed: This 62 years old male patient with past medical history of multiple sclerosis, chronic methadone use, chronic constipation on bowel regimen meds, neurogenic bladder with self catheterization, frequent urinary tract infections presented to the ED at [facility] on 11/02/2023 for evaluation of weakness and fever. Patient reported constipation lasting 2 days, uncertain of the date of his last bowel movement; also reported. Suprapubic/abdominal discomfort. ED's workup list of differential diagnosis included testicular abscess, epididymitis /orchitis testicular torsion, diverticulitis, fecal impaction, electrolyte abnormality, and cardiac arrhythmias. CBC was remarkable for leukocytosis with a white cell count of 29.74, hyperbilirubinemia at 2.68 around baseline, urinalysis was positive for white blood cells, nitrates, and many bacteria., CT of the abdomen pelvis showed an enlarged hypervascular right epididymis and right testicle with small right hydrocele and possible epididymal orchitis. During the stay, Zosyn was discontinued and the patient was treated with IV ceftriaxone. Redness, swelling and pain to manipulation are resolving. Urine culture resulted in the identification of Enterobacter cloacae complex and the patient will be discharged home on a course of cefpodoxime 200 mg oral twice a day. The patient was educated on the necessity of proper and hygiene and clean technique for intermittent urinary catheterization. Nursing will also reinforce education. The patient would benefit from urology consultation as an outpatient and this should be discussed with his primary care provider during the follow- up after discharge. Physical therapy recommendation is home health with physical therapy. Discussed with Dr. Nunn Medical diagnosis necessitation home health referral: This 62 years old male patient with past medical history of multiple sclerosis, chronic methadone use, chronic constipation on bowel regimen meds, neurogenic bladder with self catheterization, frequent urinary tract infections, treated for epididymitis /orchitis and UTI and discharged on oral antibiotics. Physical therapy recommendation is home health with physical therapy. Physical Therapist: Check all that apply Increase strength & endurance for safe mobility at home: Ordered To design/establish home maintenance program: Ordered Fall reduction therapy program for patient with history of frequent falls: Ordered Home safety evaluation and teaching/gait training including stair management (if applicable): Ordered Encounter Date and Reason: I certify that a FTF encounter for this patient was performed on November 05, 2023 and that such encounter was related to the primary reason the patient requires home health services. The encounter was conducted in the following manner: * By me as the certifying physician, TANK TRUCK MILK RECEIVER, PA or * By an inpatient physician, TANK TRUCK MILK RECEIVER or PA during an inpatient stay who communicated findings to me, Certification And Authentication I certify that I composed the above information based on my clinical judgment relating to this patient's medical condition and, if applicable, clinical findings communicated to me by the NPP or inpatient physician who performed the FTF encounter. Name of Provider that will be monitoring home health services: Mandeep Morgan
== END 2023-11-05 14:52 | disposition home health service (06) | DRG 728 ==
LOC: ER 11-03 01:07 → MS 11-03 01:31
PROVIDERS: Nurse Practitioner Acute Care; Admitting Provider General Practice; Emergency Provider Nurse Practitioner Family; PCP Student in an Organized Health Care Education/Training Program; Visit Provider General Practice
DX: N45.3 Epididymo-orchitis (principal); N39.0 Urinary tract infection, site not specified; B96.89 Other specified bacterial agents as the cause of diseases classified elsewhere; N43.2 Other hydrocele; D72.829 Elevated white blood cell count, unspecified; F33.2 Major depressive disorder, recurrent severe without psychotic features; G47.00 Insomnia, unspecified; Z79.899 Other long term (current) drug therapy; G35 Multiple sclerosis; N31.9 Neuromuscular dysfunction of bladder, unspecified; G56.21 Lesion of ulnar nerve, right upper limb; K59.01 Slow transit constipation; Z96.652 Presence of left artificial knee joint; K22.2 Esophageal obstruction; R41.3 Other amnesia; F10.21 Alcohol dependence, in remission; G89.29 Other chronic pain; M81.0 Age-related osteoporosis without current pathological fracture; Z91.81 History of falling; Z87.820 Personal history of traumatic brain injury; D64.9 Anemia, unspecified; Z79.891 Long term (current) use of opiate analgesic; E80.6 Other disorders of bilirubin metabolism
CPT/HCPCS: 00123; 36415; 76770; 80048; 80053; 87040; 87077; 87637; 93005; 96365; 96375; 97162; 99285; J1650; 71045; 74177; 76870; 81003; 81015; 83605; 83735; 84484; 85025; 87086; 87186; 93010; 99222; 99233; 99239; J0696; J1170; J2543; J3490; Q9967

== ENCOUNTER 2023-12-18 17:00 | Outpatient (REF) | payer BC, SELFPAY ==
[2023-12-18 15:31] LABS: Calculated LDL 88 mg/dL (<100); Cholesterol 164 mg/dL (<200); HDL Cholesterol 66 mg/dL (40-60); Triglyceride 54 mg/dL (<150)
[2023-12-18 16:23] LABS: *AMPHETAMINES SCREEN URINE Negative (Negative); *BARBITURATES SCREEN URINE Negative (Negative); *BENZODIAZEPINES SCREEN URINE Negative (Negative); Cannabinoids THC Positive (Negative); Cocaine Screen,Urine Positive (Negative); METHADONE URINE SCREEN Negative (Negative); OPIATES URINE SCREEN Negative (Negative)
[2023-12-18 16:26] LABS: Tricyclic Antidepressants Negative (Negative)
== END 2023-12-18 17:01 | disposition home or self-care (01) ==
LOC: NCHCN 17:00
PROVIDERS: PCP Student in an Organized Health Care Education/Training Program; Visit Provider Student in an Organized Health Care Education/Training Program
DX: G89.29 Other chronic pain (principal); R82.5 Elevated urine levels of drugs, medicaments and biological substances; Z13.220 Encounter for screening for lipoid disorders
CPT/HCPCS: 80061; 80307

== ENCOUNTER 2024-01-07 18:12 | Outpatient (REF) | payer BC, SELFPAY ==
[2024-01-10 10:45] LABS: Alcohol Negative mg/dL (Cutoff: 10); Amphetamines Presumptive Positive ng/mL; Barbiturates Negative; Benzodiazepines Negative; Cocaine Presumptive Positive ng/mL; Opiates Negative; Phencyclidine Presumptive Positive ng/mL (Cutoff: 25); Tetrahydrocannabinol Presumptive Positive ng/mL (Cutoff: 50)
[2024-01-12 10:06] LABS: Carboxy-THC Interpretation Positive.; Delta-8 CarboxyThc by LC-MS/MS 14 ng/mL (Cutoff: 5); Delta-9 CarboxyThc by LC-MS/MS >1000 ng/mL (Cutoff: 5)
[2024-01-14 09:47] LABS: Phencyclidine Negative ng/mL (Cutoff: 10); Phencyclidine Interpretation Negative.
[2024-01-14 10:08] LABS: Benzoylecgonine 264 ng/mL (Cutoff: 50); Cocaine Negative ng/mL (Cutoff: 50); Cocaine Interpretation Positive.
[2024-01-15 12:48] LABS: Amphetamine Negative ng/mL (Cutoff: 25); Amphetamines Interpretation Positive.; MDA (Ecstasy Metabolite) Negative ng/mL (Cutoff: 25); MDMA (Ecstasy) Negative ng/mL (Cutoff: 25); Methamphetamine 69 ng/mL (Cutoff: 25); Phentermine Negative ng/mL (Cutoff: 25); Pseudoephedrine/Ephedrine Negative ng/mL (Cutoff: 25)
[2024-01-16 04:55] LABS: EDDP-by GC-MS 4646 ng/mL; Methadone Interpretation Positive.; Methadone-by GC-MS 1758 ng/mL
== END 2024-01-07 18:13 | disposition home or self-care (01) ==
LOC: NCHCN 18:12
PROVIDERS: PCP Student in an Organized Health Care Education/Training Program; Visit Provider Student in an Organized Health Care Education/Training Program
DX: G89.29 Other chronic pain (principal)
CPT/HCPCS: 80307; 80324; 80349; 80353; 80358; 83992

== ENCOUNTER 2024-01-14 08:35 | Day surgery (SDC) | payer BC, SELFPAY ==
--- NOTE | 2024-01-13 19:23 | W.PM.DSUDISC ---
Date of service: 01/14/24 Time of Service: 10:48 Discharge Plan Disposition Patient Disposition: Home Condition: Good Discharge Details Reason For Visit: EGD Attending Provider: Wil Roman Primary Care Provider: Mandeep Morgan Home Meds and New Rx's Prescriptions: Continued baclofen 25 mg/5 mL (5 mg/mL) suspension 10 mg PO BID 90 Days Qty: 360 3RF pantoprazole 40 mg tablet,delayed release (DR/EC) 40 mg PO HS trazodone 100 mg tablet 100 mg PO HS methadone 10 mg tablet 20 mg PO TID Patient Comments: TAKE 2 TABS. BY MOUTH 3 TIMES A DAY AT 6AM 12PM AND 6PM FOR CHRONIC PAIN (Verified w/VPMS 11/03/23) lamotrigine 100 mg tablet,disintegrating 300 mg PO HS cholecalciferol (vitamin D3) 50 mcg (2,000 unit) capsule 2,000 unit PO DAILY magnesium citrate [Citrate of Magnesia] Solution 150 ml PO DAILY PRN (Reason: constipation) meclizine 25 mg tablet 25 mg PO Q6H PRN PRN (Reason: motion sickness) Rx Instructions: do not take with Cyproheptadine meloxicam 15 mg tablet 15 mg PO DAILY PRN (Reason: pain) Rx Instructions: do not take with other NSAIDS polyethylene glycol 3350 [ClearLax] 17 gram/dose powder 17 g PO HS naloxone [Narcan] 4 mg/actuation spray,non-aerosol 4 mg intranasal PRN Rx Instructions: spray 1 dose into ONE nostril; alternate nostrils w each dose until help arrives prochlorperazine maleate 5 mg tablet 5 mg PO TID PRN PRN Patient Comments: TAKE ONE TABLET BY MOUTH THREE TIMES A DAY NEEDED zoledronic dmfk-[id number] [Reclast] 5 mg/100 mL piggyback 5 device IV ONCE Patient Comments: Infuse 5 mg single dose intravenously every 12 months at [facility] infusion Rx Instructions: 5 mg IV infusion every 12 months ocrelizumab 30 mg/mL solution 300 mg IV [id number] Rx Instructions: per Neurology acetaminophen 500 mg tablet 1,000 mg PO Q8H PRN (Reason: pain) Qty: 90 3RF ondansetron 4 mg tablet,disintegrating 4 mg PO Q8H PRN (Reason: nausea and vomiting) Patient Comments: DISSOLVE ONE TABLET ON THE TONGUE EVERY 8 HOURS NEEDED FOR NAUSEA AND VOMITING Discharge Instructions Additional Instructions: Anil, your procedure went very smoothly today, and I hope you are comfortable for it. I also appreciate your honesty and our conversation beforehand. I hope you did not feel that we were being confrontational. We just want to honor your expectations and wishes. I did find a narrowing of your esophagus about 33 cm past your teeth. I suspect this is the same area that Dr. Chance found several years ago. To the naked eye, it appears consistent with an esophageal web or stricture. There is not a great understanding of what causes this to happen. I did do some biopsies of because they can be associated with esophageal cancers, although it really does not appear like that at all to me. When I first put the camera in, the stricture was too small to pass the camera beyond. The end of the camera is about 1 cm. I was able to stretch this up to about a centimeter and a half. I do not feel comfortable going any bigger than that at this point, because there is risk of injuring the esophagus, and that can be a very dangerous situation. I hope this provides some relief for your swallowing. Typically, for patients in your situation (assuming the biopsies are negative), I recommend sequential dilation. I typically do it at 30-day intervals, slowly stretching of back up to a normal size. Lets see how you feel over the weeks to come, and reassess at that point. The biopsies will take about a week or 2 for me to get the results of, and I will certainly be in touch when I have that information. We will tentatively plan to see you in the office around a month from now. In the meantime, I would like you to continue using your Protonix, as this is associated with improved outcomes for patients with strictures. I would like you to stick with a liquid diet for the next 48 hours, then slowly advance it as you are comfortable. I recommend that patients in your situation advance her diet up to semisoft foods that are easy to chew. Simple rule of thumb is to think about things that you would typically eat on a spoon. Keep me posted on how you are feeling, and will adjust as needed. If you need anything in the meantime, please do not hesitate to call. 1. If tolerated, consume a liquid diet for [address] days[address] not [address], drink alcohol, operate machinery, make critical decisions, or do activities that require coordination or balance for 24 hours. 3. You may experience a sore throat for 24 to 48 hours. You may use throat lozenges or gargle with warm salt water to relieve the discomfort. 4. Because air was put into your stomach during the procedure, you may experience some belching. 5. Go directly to the emergency room if you notice any of the following: Develop chills (warm to touch), or if you have a thermometer and your temperature is above 101 Difficulty breathing or difficultly swallowing Persistent vomiting Severe abdominal pain, other than gas cramps Severe chest pain Black, tarry stools Any bleeding ? exceeding one tablespoon 6. Call your physician if the site where your intravenous was started becomes red, swollen, painful, and warm to touch. 7. Your physician has reviewed your pre-procedure medications. Please continue to take those medications as previously ordered. You will be given specific information/education regarding any changes to your medications before leaving. Referrals: Wil Roman MD [ [facility] STAFF PHYSICIAN] - (Within 30 days) Activity:: Activity as Tolerated Diet:: As Tolerated Discharge Orders Discharge Orders: Discharge Order (Routine); Ordered 01/13/24 Ordered By: Wil Roman DS: Diagnosis Discharge Diagnosis (1) Dysphagia: Status: Acute Asessment and Plan: Esophageal stricture at 33 cm. Dilated. Follow-up in the office within 1 month
--- NOTE | 2024-01-13 19:25 | ENDO_ITS ---
Date of service: 01/14/24 Time of Service: 10:54 Endoscopy Report DATE OF PROCEDURE: 01/14/24 PRE-OP DIAGNOSIS: Dysphagia POST-OP DIAGNOSIS: other (Esophageal stricture at 33 cm) PROCEDURE: EGD with biopsies and dilation SURGEON: Wil Roman ANESTHESIA TYPE: General:No Airway ESTIMATED BLOOD LOSS: 10 PATHOLOGY: other (Cold forceps biopsies of esophageal stricture) COMPLICATIONS: None DISPOSITION: same day INDICATIONS: Anil is a 53 year old man with a history of distal esophageal stricture who has dysphagia PROCEDURE START TIME: PROCEDURE END TIME: :34 FINDINGS: Esophageal stricture at 33 cm from the incisors PROCEDURE DESCRIPTION: After the initiation of anesthesia, and with the assistance of a bite block, I advanced a standard gastroscope through the mouth past the hypopharynx and into the esophagus.? Under the direct vision of the scope, I advanced down the esophagus towards the stomach.? The upper, and midesophagus were normal- appearing. Around 33 cm from the incisors is a circumferential narrowing of the esophagus with clinical features consistent with Schatzki's ring, or esophageal stricture. It does not appear consistent with malignancy. Central lumen is narrowed less than 1 cm, and I am not able to advance the endoscope beyond this. I did perform cold forceps biopsies along the edge of the ring to rule out malignancy. Next, using a balloon, I dilated the esophagus to 1.5 cm. I was able to pass the camera beyond it quite easily at that point. Entered the stomach and insufflated into the rugae were obliterated. Stomach was normal- appearing. I did not see any hiatal hernia. I brought the camera back up to about 34 cm and took a few more passes beyond the abnormality. Appropriate amount of dilation of trauma was observed, without any obvious injury to the esophagus. I performed 1 more dilation up to 1.5 centimeters without any difficulty. There was no significant bleeding. I then advanced the camera back into the stomach, emptied it, and brought the camera out along the length of the esophagus 1 last time. It is worth noting that I was not able to visualize the Z-line during this procedure. Anil was then awoken from the anesthetic, extubated, transferred to the recovery unit.
[2024-01-14] VITALS (10 sets, daily range): BP systolic 131–149; BP diastolic 77–99; PULSE 80–89; RESP 10–23; TEMP 36.4–36.7; O2SAT 96–100; BMI 22.4
[2024-01-14] MEDS: Lactated Ringers 1,000 ML 80 ML IV (09:12)
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
--- NOTE | 2024-01-14 10:08 | PGE_ITS ---
Date of Service Date of service: 01/14/24 Time of Service: 10:09 Assessment and Plan Assessment and plan (1) Dysphagia: Status: Acute Assessment and plan: In the course of preparing Anil for his EGD, it was noticed that he had a positive urine drug screen on the . He tells me this was ordered by his primary care physician because of exposure to some drugs in the past. I explained that the test appears to be positive for cocaine, methamphetamine, and PCP. Tells me that on occasion he smokes marijuana from a pipe shared with his brother, which could be used for those other drugs. He declines routinely using those drugs, he thinks that the last time he may have been exposed to the pipe was about a week to week and a half ago. We talked about the small but real increased risk of anesthesia in the setting of illegal drugs. In the course that conversation, Anil disclosed that should he develop some type of significant hemodynamic instability during the course of the procedure, he would not want to be resuscitated. We talked about what that means to him. I tried to review some possible scenarios. Anil is not opposed to using vasoactive medications to support hypotension if that were to occur, but he would not like to undergo CPR, or defibrillation or cardioversion if those were otherwise indicated. I think he has a good understanding that although unlikely, if those scenarios were to happen, that would result in his during the procedure. I think he has an understanding of this. This was also discussed in the presence of his Tri who also expressed good understanding of this. We can proceed with EGD at this point as planned. Subjective Subjective Interval history since last seen: See brief assessment for update regarding operative planning Objective Last Vital Signs Temp 98.1 F 01/14/24 08:40 Pulse 89 01/14/24 08:40 Resp 16 01/14/24 08:40 BP 136/77 01/14/24 08:40 Pulse Ox 98 01/14/24 08:40 Time Spent with Patient Time Spent with Patient: 25-34 minutes Time was spent: preparing to see the patient(eg.review tests), referring, communicating with other health clinical care coordinator, counseling the patient and care coordination
--- NOTE | 2024-01-14 10:24 | ESO_PTH ---
PATIENT: Anil Park LOC: [facility] U#:[id number] AGE/SX: 53/M ROOM: RE01/14/[address]: Wil Roman MD : [id number] BED: DIS: 01/14/2024 SPEC #: [id number] RECD: 01/14/24 12:47 STATUS: MAX REQ #: [id number] MARIANA: 01/14/24 10:[address]: Wil Roman DEPT: Surgical Specimen RECD BY: Nancy Gould ENTERED: 01/14/24 12:48 SP TYPE: Catherineo RAND DR: Mandeep Morgan Tissues: 1 - ESOPHAGUS BIOPSY Procedures: GROSS AND MICRO LEVEL 4 Comments: [id number]
--- NOTE | 2024-01-14 11:19 | W.ANESPOSTOP ---
Postoperative Evaluation Date, Time and Location Date Performed: 01/14/24 Time Performed: 11:19 Patient Location: [facility] Unit Vital Signs Most Recent Imported Vital Signs: Most Recent Vital Signs Temp Pulse Resp BP Pulse Ox 36.5 C 80 13 140/80 96 01/14/24 11:08 01/14/24 11:05 01/14/24 11:05 01/14/24 11:05 01/14/24 11:05 Pain Score Most Recent Pain Score: Most Recent Pain Score Pain Level 0 01/14/24 11:08 Assessment Mental Status: Awake (Alert & Oriented to Patient Baseline) Airway and Respiratory Function: Patent airway with normal (patient baseline) respiratory exam Cardiovascular Function: Hemodynamically Stable Hydration Status: Adequately Hydrated Nausea & Vomiting: No Nausea or Vomiting Pain: Pt. Denies Any Pain Peripheral Nerve Block: Patient did not receive a nerve block
== END 2024-01-14 11:48 | disposition home or self-care (01) ==
LOC: SUR 08:36
PROVIDERS: PCP Student in an Organized Health Care Education/Training Program; Visit Provider Surgery
PROC: 0DJ68ZZ Inspection of Stomach, Via Natural or Artificial Opening Endoscopic (ICD-10-PCS; CPT 43235; principal; 2024-01-14 09:30)
DX: R13.10 Dysphagia, unspecified (principal); K22.2 Esophageal obstruction; K29.70 Gastritis, unspecified, without bleeding
CPT/HCPCS: 43249; 43239; 88305; J2250; J2405; J2704

== ENCOUNTER 2024-01-20 15:15 | Outpatient (REF) | payer BC, SELFPAY ==
[2024-01-23 09:47] LABS: Benzoylecgonine Negative ng/mL (Cutoff: 50); Cocaine Negative ng/mL (Cutoff: 50); Cocaine Interpretation Negative.
== END 2024-01-20 15:16 | disposition home or self-care (01) ==
LOC: NCHCN 15:15
PROVIDERS: PCP Student in an Organized Health Care Education/Training Program; Visit Provider Student in an Organized Health Care Education/Training Program
DX: G89.29 Other chronic pain (principal)
CPT/HCPCS: 80353

== ENCOUNTER 2024-03-01 10:39 | Day surgery (SDC) | payer BC, SELFPAY ==
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
--- NOTE | 2024-02-29 08:05 | W.PM.DSUDISC ---
Date of service: 03/01/24 Time of Service: 11:51 Discharge Plan Disposition Patient Disposition: Home Condition: Good Discharge Details Reason For Visit: EGD Attending Provider: Wil Roman Primary Care Provider: Mandeep Morgan Home Meds and New Rx's Prescriptions: Continued baclofen 25 mg/5 mL (5 mg/mL) suspension 10 mg PO BID 90 Days Qty: 360 3RF pantoprazole 40 mg tablet,delayed release (DR/EC) 40 mg PO HS trazodone 100 mg tablet 100 mg PO HS methadone 10 mg tablet 20 mg PO TID Patient Comments: TAKE 2 TABS. BY MOUTH 3 TIMES A DAY AT 6AM 12PM AND 6PM FOR CHRONIC PAIN (Verified w/VPMS 11/03/23) lamotrigine 100 mg tablet,disintegrating 300 mg PO HS cholecalciferol (vitamin D3) 50 mcg (2,000 unit) capsule 2,000 unit PO DAILY magnesium citrate [Citrate of Magnesia] Solution 150 ml PO DAILY PRN (Reason: constipation) meclizine 25 mg tablet 25 mg PO Q6H PRN PRN (Reason: motion sickness) Rx Instructions: do not take with Cyproheptadine meloxicam 15 mg tablet 15 mg PO DAILY PRN (Reason: pain) Rx Instructions: do not take with other NSAIDS polyethylene glycol 3350 [ClearLax] 17 gram/dose powder 17 g PO HS naloxone [Narcan] 4 mg/actuation spray,non-aerosol 4 mg intranasal PRN Rx Instructions: spray 1 dose into ONE nostril; alternate nostrils w each dose until help arrives prochlorperazine maleate 5 mg tablet 5 mg PO TID PRN PRN Patient Comments: TAKE ONE TABLET BY MOUTH THREE TIMES A DAY NEEDED zoledronic [id number] [Reclast] 5 mg/100 mL piggyback 5 device IV ONCE Patient Comments: Infuse 5 mg single dose intravenously every 12 months at [facility] infusion Rx Instructions: 5 mg IV infusion every 12 months ocrelizumab 30 mg/mL solution 300 mg IV [id number] Rx Instructions: per Neurology acetaminophen 500 mg tablet 1,000 mg PO Q8H PRN (Reason: pain) Qty: 90 3RF ondansetron 4 mg tablet,disintegrating 4 mg PO Q8H PRN (Reason: nausea and vomiting) Patient Comments: DISSOLVE ONE TABLET ON THE TONGUE EVERY 8 HOURS NEEDED FOR NAUSEA AND VOMITING Discharge Instructions Instructions: Pureed Diet Additional Instructions: Anil, it was good seeing you again today, we were able to dilate your esophagus once again. Last time I took it up to about 1.5 cm in its biggest size, today I was able to get up to 1.8. As I mentioned, at this point, I think it is very reasonable to refer you down to [facility] to see if there are any more advanced options that would provide more durable relief of your symptoms. I will put that referral in today, and I would expect them to reach out to you in the next week or 2. If you have not heard anything in that time, please call my office and we can try to expedite it. Similar to last time, I recommend that you stick with liquids for about 24 to 48 hours. Then advance it up to a pur?ed diet. If you need anything, or have any questions in the meantime, please let me know. 1. If tolerated, consume a soft, low fiber diet for 1-2 days. [address] Do not drive, drink alcohol, operate machinery, make critical decisions, or do activities that require coordination or balance for 24 hours. 3. You may experience a sore throat for 24 to 48 hours. You may use throat lozenges or gargle with warm salt water to relieve the discomfort. 4. Because air was put into your stomach during the procedure, you may experience some belching. 5. Go directly to the emergency room if you notice any of the following: Develop chills (warm to touch), or if you have a thermometer and your temperature is above 101 Difficulty breathing or difficultly swallowing Persistent vomiting Severe abdominal pain, other than gas cramps Severe chest pain Black, tarry stools Any bleeding ? exceeding one tablespoon 6. Call your physician if the site where your intravenous was started becomes red, swollen, painful, and warm to touch. 7. Your physician has reviewed your pre-procedure medications. Please continue to take those medications as previously ordered. You will be given specific information/education regarding any changes to your medications before leaving. Activity:: Activity as Tolerated Diet:: As Tolerated Discharge Orders Discharge Orders: Discharge Order (Routine); Ordered 02/29/24 Ordered By: Wil Roman DS: Diagnosis Discharge Diagnosis (1) Esophageal stricture: Status: Acute Asessment and Plan: Dilated up to 1.8 cm today. Plan for referral down to [facility] for definitive therapy.
[2024-03-01 10:45] VITALS: BP 133/104; PULSE 87; RESP 20; TEMP 36.9; O2SAT 98
[2024-03-01] MEDS: Normal Saline Flush 10 ML SYR IV (11:05)
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
[2024-03-01 11:10] VITALS: BMI 22.4
--- NOTE | 2024-03-01 11:53 | ENDO_ITS ---
Date of service: 03/01/24 Time of Service: 11:53 Endoscopy Report DATE OF PROCEDURE: 03/01/24 PRE-OP DIAGNOSIS: Esophageal stricture POST-OP DIAGNOSIS: same PROCEDURE: EGD with dilation to 1.8 cm SURGEON: Wil Roman ANESTHESIA TYPE: General:No Airway ESTIMATED BLOOD LOSS: 5 PATHOLOGY: none sent COMPLICATIONS: None DISPOSITION: same day INDICATIONS: Anil is a 53-year-old male with dysphagia. Previous endoscopy demonstrated an esophageal stricture at 33 cm from the incisors. He was dilated to 1.5 cm. There was transient improvement of his symptoms, but he has recurrent dysphagia PROCEDURE START TIME: :28 PROCEDURE END TIME: :41 FINDINGS: Esophageal stricture at 33 cm from the incisors, grade 3 hiatal hernia PROCEDURE DESCRIPTION: After the initiation of anesthesia, and with the assistance of a bite block, I advanced a standard gastroscope through the mouth past the hypopharynx and into the esophagus.? The upper esophagus is totally normal, as is the midportion. Around 33 cm from the incisors there is circumferential narrowing of the esophagus. Narrowband imaging is used to assist with analysis. Stricture appears similar to the previous encounter. Although the central lumen may be a little bit larger than the previous endoscopy, it is still less than 1 cm, and not able to accommodate the gastroscope. Unable to advance a balloon dilator across it with ease, and I dilated the stricture up to 1.8 cm without any issues. At that point, the dilator was removed, and I could pass the endoscope easily into the stomach. I performed retroflexion. Today, I do see signs of a hiatal hernia. I believe this is a Hill grade 3 hiatal hernia. The remainder of the stomach grossly appears normal. I brought the camera back up to the GE junction, which was a little difficult to evaluate because of the dilation. There does seem to be a little bit of irregularity of the GE junction, I do not see any obvious features that would be alarming for malignancy. I brought the camera back up to the stricture site, and gently irrigated clean. There is mild endothelial trauma from the dilation, but I do not see any evidence of any full- thickness tears. At this point, having opened up the stricture a little more than previous, I felt the safest thing to do is stop the procedure, I advanced the camera down into the stomach 1 last time and emptied it completely before removing the endoscope.
[2024-03-01 11:54] VITALS: BP 116/87; PULSE 93; RESP 18; TEMP 37; O2SAT 95
--- NOTE | 2024-03-01 12:05 | W.ANESPOSTOP ---
Postoperative Evaluation Date, Time and Location Date Performed: 03/01/24 Time Performed: 12:06 Patient Location: Day Surgery Unit Vital Signs Most Recent Imported Vital Signs: Most Recent Vital Signs Temp Pulse Resp BP Pulse Ox 37.0 C 93 H 18 116/87 95 03/01/24 11:54 03/01/24 11:54 03/01/24 11:54 03/01/24 11:54 03/01/24 11:54 Pain Score Most Recent Pain Score: Most Recent Pain Score Pain Level 8 03/01/24 10:45 Assessment Mental Status: Awake (Alert & Oriented to Patient Baseline) Airway and Respiratory Function: Patent airway with normal (patient baseline) respiratory exam Cardiovascular Function: Hemodynamically Stable Hydration Status: Adequately Hydrated Nausea & Vomiting: No Nausea or Vomiting Pain: Pt. Denies Any Pain Peripheral Nerve Block: Patient did not receive a nerve block
[2024-03-01 12:24] VITALS: BP 123/80; PULSE 76; RESP 18; TEMP 36; O2SAT 96
== END 2024-03-01 12:37 | disposition home or self-care (01) ==
LOC: SUR 10:39
PROVIDERS: PCP Student in an Organized Health Care Education/Training Program; Visit Provider Surgery
PROC: 0D758ZZ Dilation of Esophagus, Via Natural or Artificial Opening Endoscopic (ICD-10-PCS; CPT 43249; principal; 2024-03-01 11:45)
DX: K22.2 Esophageal obstruction (principal); K44.9 Diaphragmatic hernia without obstruction or gangrene
CPT/HCPCS: 43249; J2405; J2704

== ENCOUNTER 2024-03-09 10:29 | Emergency (ER) | payer BC, SELFPAY ==
[2024-03-09] VITALS (10 sets, daily range): BP systolic 94–120; BP diastolic 61–70; PULSE 70–92; RESP 10–21; TEMP 36.6; O2SAT 96–100
--- NOTE | 2024-03-09 11:45 | DI.RAD_ITS ---
Exam(s) XR FOREARM LT EXAM: XR FOREARM LT CLINICAL HISTORY: dog bite. TECHNIQUE: 2D digital imaging was performed. COMPARISON: No exams were available for comparison FINDINGS: Two views No evidence of fracture or dislocation. No soft tissue radiopaque foreign bodies. No gas in the sof t tissues. No evidence of osteomyelitis. IMPRESSION: No significant radiographic findings. DATA REPOSITORY: RADIATION DOSE DELIVERED:
--- NOTE | 2024-03-09 11:45 | DI.RAD_ITS ---
Exam(s) XR WRIST LT COMPLETE EXAM: XR WRIST LT COMPLETE CLINICAL HISTORY: dog bite ulnar side. TECHNIQUE: 2D digital imaging was performed. COMPARISON: No exams were available for comparison FINDINGS: 3 views No evidence of acute fracture or dislocation nor significant ulnar variance. Bone density is normal. No osseous lesions nor erosions. Soft tissues appear unremarkable with no evidence of gas as nor radiopaque foreign body in soft tissu es. IMPRESSION: No significant radiographic findings in the left wrist. DATA REPOSITORY: RADIATION DOSE DELIVERED:
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
[2024-03-09 12:27] LABS: Abs Immature Grans 0.04 10^3/uL (0.0-0.06); Absolute Basophil Count 0.04 10^3/uL (0.0-0.2); Absolute Eosinophil Count 0.15 10^3/uL (0.0-0.7); Absolute Lymphocyte Count 1.41 10^3/uL (1.2-3.4); Basophils % 0.3 %; Eosinophils % 1.2 %; HCT 40.8 % (40.0-50.0); HGB 14.6 g/dL (13.5-17.5); Immature Grans % 0.3 %; Lymphocytes % 11.6 %; MCH 30.9 pg (27.0-33.0); MCHC 35.8 % (32.0-36.0); MCV 86 fL (80-95); MPV 10.5 fL (8.0-11.0); Monocytes % 9.2 %; Neutrophils % 77.4 %; Platelet Count 310 10^3/uL (130-400); RBC 4.72 10^6/uL (4.36-5.78); RDW-SD 37.6 fL; WBC 12.12 10^3/uL (4.4-10.8)
[2024-03-09 12:28] LABS: Absolute Monocyte Count 1.12 10^3/uL (0.1-0.8); Absolute Neutrophil Count 9.38 10^3/uL (1.2-6.7)
--- NOTE | 2024-03-09 12:30 | NUR.NOTE ---
Animal bite report faxed to [facility] Clerk. Reported to Nish Matos, health officer who picked up a copy of the report for follow up. Nursing Note:
[2024-03-09] MEDS: Normal Saline 1,000 ML 1000 ML IV (12:34)
[2024-03-09] MEDS: ACETAMINOPHEN 1,000 MG/100 ML BAG 400 MG IVPB (12:34)
[2024-03-09] MEDS: AMPICILLIN/SULBACTAM 3 GM in Normal Saline 100 ML IVPB (12:56)
[2024-03-09 13:06] LABS: ALT 16 U/L (16-63); AST 11 U/L (15-37); Albumin 3.5 g/dL (3.4-5.0); Alkaline Phosphatase 75 U/L (46-116); Anion Gap 5.2 mmol/L (3-11); BUN 19 mg/dL (7-18); CO2 29.8 mmol/L (21.0-32.0); CREATININE 0.8 mg/dL (0.70-1.30); Calcium 9.5 mg/dL (8.5-10.1); Chloride 105 mmol/L (98-107); Estimated GFR 104.51 (mL/min/1.73m2); Glucose 112 mg/dL (74-106); Potassium 4.2 mmol/L (3.5-5.1); Sodium 140 mmol/L (136-145)
[2024-03-09 13:25] LABS: Procalcitonin < 0.10 ng/mL
[2024-03-09] MEDS: Methadone 10 MG TAB 20 MG PO (13:30)
--- NOTE | 2024-03-09 15:31 | NUR.NOTE ---
Faxed to [facility] the face to face on this patient. Nursing Note:
== END 2024-03-09 14:20 | disposition home or self-care (01) ==
PROVIDERS: Emergency Provider Physician Assistant; PCP Student in an Organized Health Care Education/Training Program
DX: S61.552A Open bite of left wrist, initial encounter (principal); L03.114 Cellulitis of left upper limb; W54.0XXA Bitten by dog, initial encounter; Y93.89 Activity, other specified
CPT/HCPCS: 36415; 80053; 84145; 87040; 96365; 96367; 99284; 73090; 73110; 83605; 85025; J0131; J0295

== ENCOUNTER 2024-03-25 11:14 | Outpatient (CLI) | payer BC, SELFPAY ==
[2024-03-26 11:23] LABS: IgA 275 mg/dL (85-499); IgG 688 mg/dL (610-1616); IgM 114 mg/dL (35-242)
[2024-03-26 15:56] LABS: CD19 <1 % (6-24); CD20 <1 % (6-24)
== END 2024-03-25 11:15 | disposition home or self-care (01) ==
LOC: LBO 11:16
PROVIDERS: PCP Student in an Organized Health Care Education/Training Program; Visit Provider Psychiatry & Neurology Neurology
DX: G35 Multiple sclerosis (principal)
CPT/HCPCS: 36415; 82784; 88184; 88185

== ENCOUNTER 2024-06-29 11:02 | Outpatient (REF) | payer BC, SELFPAY ==
[2024-06-30 12:07] LABS: Fentanyl Scr w/Rfx Confirm Positive ng/mL (<1)
[2024-07-01 10:42] LABS: Fentanyl Confirmation Negative ng/mL (<2); Norfentanyl Confirmation Negative ng/mL (<10)
== END 2024-06-29 11:03 | disposition home or self-care (01) ==
LOC: NCHCN 11:02
PROVIDERS: PCP Student in an Organized Health Care Education/Training Program; Visit Provider Student in an Organized Health Care Education/Training Program
DX: G89.29 Other chronic pain (principal)
CPT/HCPCS: 80307; 80354

== ENCOUNTER 2024-07-13 02:55 | Outpatient (CLI) | payer BC, SELFPAY ==
[2024-07-15 12:27] LABS: CD19 <1 % (6-24); CD20 <1 % (6-24)
== END 2024-07-13 02:56 | disposition home or self-care (01) ==
LOC: LBO 02:55
PROVIDERS: PCP Student in an Organized Health Care Education/Training Program; Visit Provider Psychiatry & Neurology Neurology
DX: G35 Multiple sclerosis (principal)
CPT/HCPCS: 36415; 88184; 88185

== ENCOUNTER 2024-09-16 03:12 | Outpatient (CLI) | payer BC, SELFPAY ==
[2024-09-17 12:14] LABS: CD19 <1 % (6-24); CD20 <1 % (6-24)
== END 2024-09-16 03:13 | disposition home or self-care (01) ==
LOC: LBO 03:12
PROVIDERS: PCP Student in an Organized Health Care Education/Training Program; Visit Provider Psychiatry & Neurology Neurology
DX: G35 Multiple sclerosis (principal)
CPT/HCPCS: 36415; 88184; 88185

== ENCOUNTER 2024-10-04 08:02 | Emergency (ER) | payer BC, SELFPAY ==
[2024-10-04 08:04] VITALS: BP 130/89; PULSE 75; RESP 15; TEMP 36.1; O2SAT 96
--- NOTE | 2024-10-04 08:15 | DI.RAD_ITS ---
Exam(s) XR FINGER RT RING EXAM: XR FINGER RT RING CLINICAL HISTORY: fall last night, R ring finger pain. TECHNIQUE: 2D digital imaging was performed of the right finger. Three views were obtained. PA/AP, oblique, and lateral views were obtained. COMPARISON: No exams were available for comparison FINDINGS: BONES: There is an acute fracture through the proximal metaphyseal region of the proximal phalanx of the ring finger. The fracture appears comminuted. No significant displacement is seen. The fracture does not extend into the joint space. No bony destructive lesion is seen. JOINTS: No dislocation present. SOFT TISSUE: There is soft tissue swelling of the ring finger. IMPRESSION: Acute nondisplaced fracture involving the proximal phalanx of the right ring finger as described. DATA REPOSITORY: RADIATION DOSE DELIVERED:
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
== END 2024-10-04 09:49 | disposition home or self-care (01) ==
PROVIDERS: Emergency Provider Physician Assistant; PCP Student in an Organized Health Care Education/Training Program
DX: S62.644A Nondisplaced fracture of proximal phalanx of right ring finger, initial encounter for closed fracture (principal); G35 Multiple sclerosis; W18.39XA Other fall on same level, initial encounter; Y93.89 Activity, other specified; Y92.018 Other place in single-family (private) house as the place of occurrence of the external cause
CPT/HCPCS: 29130; 99283; 73140

== ENCOUNTER 2024-11-02 09:38 | Outpatient (CLI) | payer BC, SELFPAY ==
--- NOTE | 2024-11-02 | DI.RAD_ITS ---
Exam(s) XR HAND RT COMPLETE EXAM: XR HAND RT COMPLETE CLINICAL HISTORY: CLOSED FX WITH HEALING,S62.644D. TECHNIQUE: 2D digital imaging was performed of the right hand. Three images were obtained. AP, lateral and oblique views were obtained. COMPARISON: CR XR FINGER RT RING from 10/04/2024 FINDINGS: BONES: There is again seen a fracture through the proximal aspect of the proximal phalanx of the right ring finger. There is been slight interval increase in the dorsal angulation of the distal fracture. Callus formation has developed about the fracture consistent with some interval healing. No bony destructive lesion is seen. JOINTS: No dislocation present. SOFT TISSUE: Normal. IMPRESSION: Healing fracture of the proximal phalanx of the right ring finger. Slight increased dorsal angulation of the fracture is noted since 10/04/2024. DATA REPOSITORY: RADIATION DOSE DELIVERED:
== END 2024-11-02 09:58 ==
LOC: DI 09:39
PROVIDERS: PCP Student in an Organized Health Care Education/Training Program; Visit Provider Student in an Organized Health Care Education/Training Program
DX: S62.644D Nondisplaced fracture of proximal phalanx of right ring finger, subsequent encounter for fracture with routine healing (principal); X58.XXXD Exposure to other specified factors, subsequent encounter
CPT/HCPCS: 73130

== ENCOUNTER 2024-11-02 16:27 | Outpatient (REF) | payer BC, SELFPAY ==
[2024-11-09 01:29] LABS: EDDP-by GC-MS 2304 ng/mL; Methadone Interpretation Positive.; Methadone-by GC-MS 107 ng/mL
== END 2024-11-02 16:28 | disposition home or self-care (01) ==
LOC: NCHCN 16:27
PROVIDERS: PCP Student in an Organized Health Care Education/Training Program; Visit Provider Student in an Organized Health Care Education/Training Program
DX: G89.29 Other chronic pain (principal); Z79.899 Other long term (current) drug therapy
CPT/HCPCS: 80358

== ENCOUNTER 2025-02-03 10:10 | Outpatient (REF) | payer BC, SELFPAY ==
[2025-02-03 14:56] LABS: Glucose Negative (Negative)
[2025-02-03 15:05] LABS: C & S Indicated? Yes; RBC 0-2 HPF (0-2); WBC 20-50 HPF (0-5)
== END 2025-02-03 10:11 | disposition home or self-care (01) ==
LOC: NCHCN 10:10
PROVIDERS: PCP Student in an Organized Health Care Education/Training Program; Visit Provider Student in an Organized Health Care Education/Training Program
DX: R30.0 Dysuria (principal)
CPT/HCPCS: 87077; 81003; 81015; 87086; 87186